=== PATIENT | male | born 1950 | race Caucasian/White ===

== ENCOUNTER 2018-07-18 17:34 | Inpatient (IN) | payer MEDICARE ==
[~2018-07-18] VITALS: Ht 170.2 cm; Wt 76.7 kg
[~2018-07-18 17:34] MED LIST: ASPIR 8181 MG PO; BENTYL 10 MG CA10 M1 PO; BRILINTA90 MG PO; CARVEDILOL12.5 MG PO; COREG6.25 MG PO; EFFIENT10 MG PO; GABAPENTIN PO; HUMALOG100 UNIT/2 SUBQ; HUMULIN R100 UNIT/M SUBQ; HYDROCODON-ACE1 EAC7 PO; LANTUS100 UNIT/M SUBQ; LASIX 20 MG TAB20 MG PO; LEVEMIR SUBQ; LIDODERM 5%1 PATC1 TOP; LIDOPATCH1 EACH TOP; LIPITOR80 MG PO; LISINOPRIL10 MG PO; MEDROL DOSPAK21 TA1 PO; NEURONTIN250 MG/5 M PO; NITROGLYCERIN0.4 MG SUBLING; PERCOCET 10-321 EACH PO; PROTONIX40 M1 PO; REGLAN 10 MG TA10 MG PO
[2018-07-18 17:36] VITALS: BP 174/84
[2018-07-18] MEDS ORDERED: IMDUR 30 MG TAB30 M1 PO (17:46)
[2018-07-18] MEDS ORDERED: PLAVIX 75 MG TA75 M1 PO (17:46)
[2018-07-18] MEDS ORDERED: LISINOPRIL20 MG PO (17:47)
[2018-07-18 18:01] LABS: ABSOLUTE EOSINOPHILS 0.2 thou/uL (0.0-0.7); ABSOLUTE LYMPHOCYTES 0.7 thou/uL (0.8-5.3); ABSOLUTE MONOCYTES 0.3 thou/uL (0.0-1.2); BASOPHILS 0.7 %; HEMATOCRIT 36.8 % (42.0-52.0); HEMOGLOBIN 12.1 gm/dL (14.0-18.0); LYMPHOCYTES 17.2 %; MCH 29.1 pg (26.0-34.0); MCV 88.3 fL (80.0-100.0); MONOCYTES 6.8 %; MPV 10.5 fl. (7.2-11.1); NUCLEATED RBCS 0 /100WBC; PLATELET COUNT* 132 thou/uL (150-400); POLYS 71.3 %; RBC 4.17 mil/uL (4.50-6.00); WBC 4.3 thou/uL (4.0-11.0)
[2018-07-18 18:08] LABS: PROTIME 9.9 Seconds (9.20-11.50)
[2018-07-18 18:13] LABS: ANION GAP 8 mmol/L (7-16); BUN 8 mg/dL (7-18); CALCIUM 7.9 mg/dL (8.5-10.1); CHLORIDE 102 mmol/L (98-107); CO2 28 mmol/L (21-32); CREATININE 0.9 mg/dL (0.6-1.3); GLUCOSE 496 mg/dL (70-99); POTASSIUM 4.5 mmol/L (3.5-5.1); SODIUM 138 mmol/L (136-145)
[2018-07-18 18:21] LABS: ALKALINE PHOSPHATASE 113 U/L (46-116); LIPASE 156 U/L (73-393); NT-PRO BRAIN NAT PEPTIDE 695 pg/mL (<300); SGOT 8 U/L (15-37); SGPT 15 U/L (30-65); TOTAL BILIRUBIN 0.2 mg/dL (<0.1-1.0); TOTAL PROTEIN 6.6 g/dL (6.4-8.2); TROPONIN-I LEVEL <0.06 ng/mL (<0.06)
[2018-07-18 21:29] VITALS: BP 168/69
[2018-07-18 21:43] VITALS: BP 173/72
[2018-07-18 22:00] VITALS: BP 173/72
[2018-07-18 23:00] VITALS: BP 171/73
[2018-07-19] VITALS: BP 144/66
[2018-07-19 02:00] VITALS: BP 136/70
[2018-07-19 04:00] VITALS: BP 147/65
--- NOTE | 2018-07-19 05:28 | NUR ---
PT ARRIVED ON UNIT FROM ER AT 2140, ASSISTED TO ROOM ORIENTED TO SURROUNDINGS. VS AND ASSESSMENT STABLE PT ALERT AND ORIENTED X4.PT STILL C/O CHEST PAIN NOT RELIEVED BY THE NITRO PASTE PLACED IN THE ER. NOTIFIED DR CHÁVEZ OF PT CONDITION ORDERS OBTIANED FOR PRN PAIN AND NAUSEA MEDS. CALLED IN CARIOLOGY CONSULT AND SPOKE WITH DR BARAHONA NOTIFIED HIM OF CONDITION ORDERS FOR LOVENOX AND NPO AFTER MIDNIGHT OBTAINED. PTS SWELLING IN TOUNGE AND EYE LIDS DRAMATICALLY REDUCED SINCE ARRIVAL UNTIL THE WRITTING OF THIS NOTE. PT NITRO PASTE REMOVED AND PT WAS GIVEN 2 DOSES SL NITRO PER PRN ORDER. PT STATED IT HELPED SOME BUT THAT THE PRN FENTANLY RELIEVED HIS PAIN COMPLETELY. PT HAD TWO DOSES THEN SLEPT THROUGH THE NIGHT. WILL CONTINUE PLAN OF CARE.
[2018-07-19 06:00] VITALS: BP 160/68
[2018-07-19 10:00] VITALS: BP 150/62
[2018-07-19 10:31] LABS: AMP/METHAMP Negative (Negative); BARBITURATES Negative (Negative); BENZODIAZEPINES Negative (Negative); COCAINE Negative (Negative); METHADONE Negative (Negative); OPIATES POSITIVE (Negative); PCP Negative (Negative); THC POSITIVE (Negative)
--- NOTE | 2018-07-19 10:45 | NUR ---
CHART REVIEWED, SPOKE WITH PT. PT IS JUST MOVING TO THIS AREA FROM [facility]. HE, HIS SON AND DTR-IN-LAW WILL BE MOVING INTO A HOUSE IN [place], THEY ARE CURRENTLY STAYING WITH FRIENDS IN THE AREA. PT SAID ONCE HE GETS SETTLED IN, HE WILL WORK ON GETTING A PCP IN THE AREA, ETC. PT HAS MEDICARE ONLY, HE HAS NO RX DRUG COVERAGE. HE SAID HE USED TO BUT HE LOST THAT COVERAGE RECENTLY. DISCUSSED ROLE OF CASE MGT, WILL CONTINUE TO FOLLOW.
--- NOTE | 2018-07-19 13:40 | NUR ---
ICU TRANSFER TO 222 REPORT GIVEN PATIENT TO 222 VIA WC GOOD CONDITION ORIENTED TO AND CALL LIGHT
--- NOTE | 2018-07-19 16:32 | 2DMMODE ---
[place] [address] 2 D/M-MODE ECHOCARDIOGRAM Name: BRYCE PRIEST Room: [address] IN [facility]#: [id number] Admission: 07/18/18 Attend Phys: Roberto Urbina Discharge: Date of : 52 Date of Service: 07/19/18 1632 Report #: [id number] THIS REPORT FOR: //name// APPROVED REPORT Study performed: 07/19/2018 14:09:00 EXAM: Comprehensive 2D, Doppler, and color-flow Echocardiogram Patient Location: In-Patient Room #: 222 Status: routine BSA: 1.96 HR: 79 bpm BP: 120/68 mmHg Rhythm: NSR Other Information Study Quality: Good Indications Aortic Valve Disease Chest Pain 2D Dimensions LVEF(%): 85.34 (>50%) IVSd: 10.22 (7-11mm) LVOT Diam: 16.77 (18-24mm) LVDd: 42.79 mm PWd: 9.84 (7-11mm) LVDs: 19.57 (25-40mm) Aortic Root: 31.05 mm Godwin's LVEF: 85.34 % Volumes Left Atrial Volume (Systole) LA ESV Index: 32.80 mL/m2 Aortic Valve AoV Peak Caleb.: 2.44 m/s AO Peak Gr.: 23.82 mmHg LVOT Max P.96 mmHg AO Mean Gr.: 13.34 mmHg LVOT Mean P.14 mmHg LVOT Max V: 1.73 m/s AO V2 VTI: 45.84 cm LVOT Mean V: 1.14 m/s VELASQUEZ (VTI): 1.88 cm2 LVOT V1 VTI: 38.98 [place] [address] 2 D/M-MODE ECHOCARDIOGRAM Name: BRYCE PRIEST Room: [address] IN M.R.#: [id number] Admission: 07/18/18 Attend Phys: Roberto Urbina Discharge: Date of : 52 Date of Service: 07/19/18 1632 Report #: [id number] MV Mean Gr.: 3.76 mmHg E/A Ratio: 0.87 MV Decel. Time: 342.55 ms MV E Max Caleb.: 1.46 m/s MV PHT: 99.34 ms MVA (PHT): 2.21 cm2 TDI E/Lateral E': 20.86 E/Medial E': 18.25 Medial E' Caleb.: 0.08 m/s Lateral E' Caleb.: 0.07 m/s Pulmonary Valve PV Peak Caleb.: 1.07 m/s PV Peak Gr.: 4.57 mmHg Left Ventricle The left ventricle is normal size. There is normal LV segmental wall motion. There is normal left ventricular wall thickness. Left ventricular systolic function is normal. The left ventricular ejection fraction is within the normal range. LVEF is 60-65%. Grade I - abnormal relaxation pattern. Right Ventricle The right ventricle is normal size. The right ventricular systolic function is normal. Atria The left atrium size is normal. The right atrium size is normal. Aortic Valve Mild aortic valve sclerosis. Bioprosthetic aortic valve is present. No aortic regurgitation is present. No hemodynamically significant valvular aortic stenosis. Mitral Valve Moderate mitral annular calcification. Mild mitral regurgitation. No evidence of mitral valve stenosis. Tricuspid Valve The tricuspid valve is normal in structure. Trace tricuspid regurgitation. Unable to assess PA pressure. Pulmonic Valve The pulmonary valve is normal in structure. There is no pulmon[place] [address] 2 D/M-MODE ECHOCARDIOGRAM Name: BRYCE PRIEST Room: [address]#: [id number] Admission: 07/18/18 Attend Phys: Roberto Urbina Discharge: Date of : 52 Date of Service: 07/19/18 1632 Report #: [id number] Great Vessels The aortic root is normal in size. IVC is normal in size and collapses with >50% inspiration Pericardium There is no pericardial effusion. <Conclusion> The left ventricle is normal size. There is normal left ventricular wall thickness. Left ventricular systolic function is normal. The left ventricular ejection fraction is within the normal range. LVEF is 60-65%. Grade I - abnormal relaxation pattern. The right ventricle is normal size. The left atrium size is normal. Mild aortic valve sclerosis. No aortic regurgitation is present. No hemodynamically significant valvular aortic stenosis. Moderate mitral annular calcification. Mild mitral regurgitation. No evidence of mitral valve stenosis. The tricuspid valve is normal in structure. IVC is normal in size and collapses with >50% inspiration There is no pericardial effusion. There is normal LV segmental wall motion. Bioprosthetic aortic valve is present. <ELECTRONICALLY SIGNED> By: Ramos Doll MD, FACC 07/19/18 163 31 31 Ramos Doll MD, FACC /INF
--- NOTE | 2018-07-19 17:38 | NUR ---
PATIENT SITTING UP IN BED AND WATCHING TV REMAINS A AND O X 4 NSR RA O2 SAT MID 90S GOOD APPETITE LAST BM UNKNOWN VOID ASEQUATE, UNMEASURED IV L AC/FA X2 BOTH SL C/O ABD/CHEST PAIN TREATED WITH 1 OXYCODONE 5MG PO WITH SOME RELIEF CALL LIGHT IN REACH AND INSTRUCTIONS GIVEN AND FOLLOWED
[2018-07-19 20:00] VITALS: BP 99/60
[2018-07-20] VITALS (22 sets, daily range): BP systolic 80–146; BP diastolic 41–94
--- NOTE | 2018-07-20 05:33 | NUR ---
ASSUMED PT CARE AT 1930. ASSESSMENT COMPLETED CHARTED. C/O CHRONIC BACK PAIN. ABLE TO MAKE NEEDS KNOWN. UP AD OLVIN, NPO FOR CATH TODAY. WILL CONTINUE TO MONITOR.
[2018-07-20 05:34] LABS: HEMATOCRIT 35.7 % (42.0-52.0); HEMOGLOBIN 11.6 gm/dL (14.0-18.0); MCH 28.7 pg (26.0-34.0); MCHC 32.6 g/dL (28.0-37.0); MCV 87.8 fL (80.0-100.0); MPV 10.9 fl. (7.2-11.1); NUCLEATED RBCS 0 /100WBC; PLATELET COUNT* 144 thou/uL (150-400); RBC 4.06 mil/uL (4.50-6.00); RDW-CV 14.1 % (10.5-14.5)
[2018-07-20 06:14] LABS: CALCIUM 8.2 mg/dL (8.5-10.1); CREATININE 0.9 mg/dL (0.6-1.3); POTASSIUM 4.4 mmol/L (3.5-5.1)
[2018-07-20 06:21] LABS: ABSOLUTE LYMPHOCYTES 0.7 thou/uL (0.8-5.3); ABSOLUTE MONOCYTES 0.1 thou/uL (0.0-1.2); ABSOLUTE NEUTROPHILS 11.2 thou/uL (1.6-8.1); PLATELET ESTIMATE ADEQUATE
--- NOTE | 2018-07-20 12:12 | NUR ---
RECEIVED REPORT FROM LAVELL AMANDA. ASSUMED CARE OF PT AROUND 0730. PT A&O X4. VSS. O2 SAT 97% ON RA. PRINTING ASSISTANT IN PLACE TRACING SR. AM ASSESSMENT AND VITALS COMPLETED CHARTED. IV TO LEFT AC CLOTTED OFF AND WAS REMOVED. IV TO LEFT FA/WRIST INTACT AND SALINE LOCKED. PT REPORTS RIGHT SIDE AND RIGHT CHEST PAIN THAT HAS STAYED FAIRLY CONSTANT DESPITE PAIN MEDICATION. PT STATES THAT HE WOULD LIKE "TWO PAIN PILLS AT A TIME INSTEAD OF ONE". PT ABLE TO BE UP AD OLVIN IN ROOM. PT VOIDING WITHOUT ISSUE. LAP SITES TO ABDOMEN FROM GALLBLADDER REMOVAL NOTED, NO SIGNS OF INFECTION. PT CURRENTLY DOWNSTAIRS IN BREAD DOUGH MIXER. AWAITING PT'S RETURN.
--- NOTE | 2018-07-20 17:29 | EKG ---
[place] [address] ELECTROCARDIOGRAM REPORT Name: BRYCE PRIEST Room: [address] ADM IN M.R.#: [id number] Admission: 07/18/18 Attend Phys: Russ Muniz Discharge: Date of : 52 Report #: [id number] THIS REPORT FOR: //name// [facility] ED Test Date: 2018-07-18 Test Time: 17:39:00 Pat Name: BRYCE PRIEST Department: Room: [facility] Gender: M Principal Examiner: Shady GARZA : 1950 Requested By: Farhat Redding Order Number: [id number] MD: Shankar Sampson Measurements Intervals [place] Rate: 74 P: 57 NE: 165 QRS: -37 QRSD: 79 T: 63 QT: 375 QTc: 416 Interpretive Statements Sinus rhythm Left atrial enlargement Left axis deviation Consider anterior infarct Compared to ECG 08/30/2017 08:12:04 Atrial abnormality now present Left-axis deviation now present Myocardial infarct finding still present Electronically Signed On 07-20-2018 17:28:46 CDT by Shankar Sampson [email or web address] <ELECTRONICALLY SIGNED> By: Shankar Sampson MD, [facility] 07/20/18 1728 1739 1739 Shankar Sampson MD, [facility] /EPI
--- NOTE | 2018-07-20 19:10 | NUR ---
PT RETURNED FROM FUDGER AROUND 1345. PT A&O X4, VSS. RIGHT GROIN SITE CDI, NO HEMATOMA. POST CATH VITALS CHARTED. PT REPORTED CHEST PAIN 7/10 FOLLOWING THE CATH - PO PAIN MEDICATION GIVEN AND NOW PT RATING PAIN AT ABOUT A 3/10. PT EATING AND DRINKING WITHOUT ISSUE. IV TO LEFT FA INTACT AND INFUSING IVF. PT NOW ABLE TO GET UP - ASSISTED TO BATHROOM TO VOID, VOIDING WITHOUT ISSUE. PT VISITING WITH FRIENDS/FAMILY ON HIS CELL PHONE. PT CURRENTLY SITTING UP IN BED. CALL LIGHT IS WITHIN REACH, FALL PRECAUTIONS IN PLACE. HOURLY ROUNDING PERFORMED.
[2018-07-21] VITALS (7 sets, daily range): BP systolic 129–165; BP diastolic 43–68
[2018-07-21 04:44] LABS: HEMOGLOBIN 11.2 gm/dL (14.0-18.0); MCH 28.9 pg (26.0-34.0); MCHC 32.8 g/dL (28.0-37.0); MPV 10.7 fl. (7.2-11.1); RBC 3.87 mil/uL (4.50-6.00); RDW-CV 14.1 % (10.5-14.5); WBC 11.1 thou/uL (4.0-11.0)
--- NOTE | 2018-07-21 05:22 | NUR ---
PT SLEPT OFF AND ON OVERNIGHT. RECEIVING PO PAIN MED Q6 HOURS PRN FOR CHEST DISCOMFORT 05/07 WITH FAIR RELIEF. HS ACCUCHECK 246, INSULIN GIVEN ORDERED. AM LABS DRAWN. TELE SR. R GROIN CATH SITE DRSCari CDI, SOFT, NO BRUISING. UP AD OLVIN, VOIDING WITHOUT DIFFICULTY. LFA IVF INFUSING PER PUMP. HEALING LAP SITES TO ABD FROM ERIC ONE WEEK AGO. ABLE TO USE CALL LITE AND MAKE NEEDS KNOWN.
[2018-07-21 05:26] LABS: ALBUMIN 2.7 g/dL (3.4-5.0); ALKALINE PHOSPHATASE 84 U/L (46-116); ANION GAP 6 mmol/L (7-16); BUN 17 mg/dL (7-18); CALCIUM 8.1 mg/dL (8.5-10.1); CHLORIDE 103 mmol/L (98-107); CO2 29 mmol/L (21-32); CREATININE 0.9 mg/dL (0.6-1.3); GLUCOSE 211 mg/dL (70-99); POTASSIUM 4.5 mmol/L (3.5-5.1); SGOT 9 U/L (15-37); SGPT 13 U/L (30-65); SODIUM 138 mmol/L (136-145); TOTAL BILIRUBIN 0.2 mg/dL (<0.1-1.0); TOTAL PROTEIN 5.4 g/dL (6.4-8.2); TROPONIN-I LEVEL <0.06 ng/mL (<0.06)
[2018-07-21 05:27] LABS: SERUM ASSESSMENT CLEAR
[2018-07-21 05:38] LABS: CHOLESTEROL 134 mg/dL (<200); HDL CHOLESTEROL 34 mg/dL (>40); LDL CHOLESTEROL 88 mg/dL (<100); TC:HDL 3.9 Ratio (Not establshd); TRIGLYCERIDE 64 mg/dL (<150); VLDL 13 mg/dL (<40)
--- NOTE | 2018-07-21 10:23 | EKG ---
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: : 1950 Requested By: Ramos Doll Order Number: [id number] Reading MD: Shankar Sampson Measurements Intervals [place] Rate: 59 P: 41 [place]: 168 QRS: -35 QRSD: 83 T: 41 QT: 429 QTc: 425 Interpretive Statements Sinus rhythm Probable left atrial enlargement Inferior infarct, old Anterior infarct, old Compared to ECG 08/30/2017 08:12:04 No significant changes Electronically Signed On 07-21-2018 10:23:41 CDT by Shankar Sampson [email or web address] <ELECTRONICALLY SIGNED> By: Shankar Sampson MD, FAC 07/21/18 1023 1252 1252 Shankar Sampson MD, [facility] /EPI
--- NOTE | 2018-07-21 10:26 | EKG ---
[place] [address] ELECTROCARDIOGRAM REPORT Name: BRYCE PRIEST Room: [address] ADM IN M.R.#: [id number] Admission: 07/18/18 Attend Phys: Russ Muniz Discharge: Date of : 52 Report #: [id number] THIS REPORT FOR: //name// [facility] Test Date: 2018-07-21 Test Time: 09:18:44 Pat Name: BRYCE PRIEST Department: Room: [address] Gender: M Instrument Tech: : 1950 Requested By: Ramos Doll Order Number: [id number] Reading MD: Shankar Sampson Measurements Intervals [place] Rate: 63 P: 49 [place]: 168 QRS: -34 QRSD: 85 T: 64 QT: 401 QTc: 411 Interpretive Statements Sinus rhythm Probable left atrial enlargement Left axis deviation Anterior infarct, old Baseline wander in lead(s) V1 Compared to ECG 07/18/2018 17:39:00 No significant changes Electronically Signed On 07-21-2018 10:25:59 CDT by Shankar Sampson [email or web address] <ELECTRONICALLY SIGNED> By: Shankar Sampson MD, [facility] 07/21/18 1025 7 7 Shankar Sampson MD, [facility] /EPI
[2018-07-21] MEDS ORDERED: ZOFRAN ODT4 MG PO (11:06)
[2018-07-21] MEDS ORDERED: BRILINTA90 MG PO (11:06)
[2018-07-21] MEDS ORDERED: OXYCODONE HCL10 MG PO (11:06)
--- NOTE | 2018-07-21 11:11 | NUR ---
RECEIVED REPORT FROM ROSAS AMANDA. ASSUMED CARE OF PT AROUND 729. PT A&O X4, VSS, O2 SAT 99% ON RA. TATTOO AND BODY ARTIST IN PLACE TRACING SR. AM ASSESSMENT AND VITALS COMPELTED CHARTED. PT NAUSEAS THIS AM, ZOFRAN GIVEN WITH PARTIAL RELIEF. PT REPORTING RIGHT SIDE AND CHEST PAIN - RECEIVED PO PAIN MEDICATION WITH PARTIAL RELIEF. EKG OBTAINED. IV TO LEFT FA INTACT AND INFUSING IVF AT KVO. PT ABLE TO EAT AND DRINK DESPITE NAUSEA. MEDS PER EMAR. PLAN IS FOR PT TO DISCHARGE LATER TODAY PER DR PATRICK. PT CURRENTLY RESTING IN BED. CALL LIGHT IS WITHIN REACH, HOURLY ROUNDING PERFORMED. LOW FALL RISK PRECAUTIONS IN PLACE. WCTM.
--- NOTE | 2018-07-21 11:30 | CARD ---
[address] [address] CARDIAC CATH REPORT Name: BRYCE PRIEST Room: [address] IN ..#: [id number] Admission: 07/18/18 Attend Phys: Russ Muniz Discharge: Date of : 52 Report #: [id number] THIS REPORT FOR: //name// APPROVED REPORT Study performed: 07/20/2018 10:54:31 Patient Details Patient Status: In-Patient Room #: 222 The patient is a 67 year-old male Event Personnel Ramos Doll Neuropsychiatrist, Sofia Pina RN Tyre Finisher And Examiner, Venus Cortez RTR Monitor, Bryce Cameron Scrub Procedures Performed Art Access - R femoral artery* Left Heart Cath w/or w/o Coronaries C AMANDA Place w/wo Plasty Single RCA Hemostasis w/ Mynx Indication Unstable angina Risk Factors Hypercholesterolemia, Coronary Artery DiseaseHypertension Previous Procedures/Diagnoses Previous Valve Surgery Admission/Lab Medications/Medications given during procedure Aspirin PO 162 mg, Ticagrelor PO 180 mg, Angiomax IV 13 ml, Angiomax Drip IV 29.1 ml per hr Procedure Narrative The patient was brought electively to the Cardiac Catheterization Laboratory and was prepped and draped in a sterile manner. The right femoral was infiltrated with 2% Lidocaine subcutaneous anesthesia. A Gilbert 6 FR sheath was inserted into the right femoral artery. Coronary angiography was performed using coronary diagnostic catheters. The right coronary system was accessed and visualized with a 6F 3DRC catheter. The left coronary system was accessed and visualized with a Diagnostic 6Fr JL4 catheter. Closure device was deployed with a 6Fr Fr Mynx. The patient tolerated the procedure well and there were no complications associated with the procedure. A hematoma occurred. The left ventricle [place] [address] CARDIAC CATH REPORT Name: BRYCE PRIEST Room: [address]#: [id number] Admission: 07/18/18 Attend Phys: Russ Muniz Discharge: Date of : 52 Report #: [id number] time. Intraoperative Conscious Sedation Sedation start time: 11:21 Case end Time: 12:17 Fentanyl 75 mcg Versed 4 mg Fluoro Time: 16.2 minutes Dose: DAP 585898 cGycm2 2412.20 mGy Contrast Type and Amount: Visipaque 260 ml Diagnostic Cath Left Main 0% narrowing LAD 30% mid Vessel narrowing Circumflex 40 Percent narrowing of the proximal portion of the first marginal branch Right Coronary Large dominant vessel with 70% ostial narrowing and 90% in-stent restenosis at the acute margin Hemodynamics The aortic pressure is 112/47 mmHg with a mean of 67 mmHg. PCI Technique Lesion Percutaneous coronary intervention was performed on the mid right coronary artery. The lesion stenosis prior to intervention was 90% with CHARITY 3 flow. A 6F 3DRC Guide Catheter was used to engage the ostium. A BMW 190cm Interventional Guidewire was used to cross the lesion. BALLOON DILATION A Balloon catheter Trek RX 2.5 X 12 was inserted and inflated up to 14.00atm for 14seconds. Additional Inflation: 16.00atm for 1seconds. NC TREK RX 3.0X12 BALLON INFLATED FOR 11 SEC @ 20 JEANNE, 6 SEC @ 14 JEANNE, 10 SEC @ 14 JEANNE. NC TREK RX 3.0 X 15 INFLATED FOR 18 SEC @ 20 SEC JEANNE, 13 SEC @ 20 JEANNE, 13 SEC @ 18 JEANNE, 12 SEC @ 20 JEANNE, 8 SEC @ 22 JEANNE. STENT DEPLOYMENT A drug-eluting stent Xience Alpine RX 3.0X28 was inserted and inflated up to 8:00atm for 12seconds. Additional Inflation: 17.00atm for 9seconds. Final angiography reveals 10 % stenosis with CHARITY 3 flow. PCI Technique Lesion 2 Percutaneous coronary intervention was performed [place] [address] CARDIAC CATH REPORT Name: BRYCE PRIEST Room: [address]#: [id number] Admission: 07/18/18 Attend Phys: Russ Muniz Discharge: Date of : 52 Report #: [id number] coronary artery. The lesion stenosis prior to intervention was 70% with CHARITY 3 flow. Balloon Dilation A Balloon catheter NC Trek RX 3.0 X 12 was inserted and inflated up to 18atm for 15seconds. Final angiography reveals 20 % stenosis with CHARITY 3 flow. Conclusion #1 significant coronary artery disease characterized by the following: A 30% mid LAD narrowing B nondominant circumflex with 40% narrowing of the proximal portion of the first marginal branch C dominant right coronary artery with 70% ostial narrowing and 90% stenosis within the previously deployed stent surrounding the acute margin #2 normal blood pressure #3 successful percutaneous coronary interventions with deployment of a drug-eluting stent at site of 90% mid right coronary stenosis with 10% residual narrowing #4 successful percutaneous transluminal coronary angioplasty at the site of 70% ostial right coronary narrowing with 20% residual narrowing and CHARITY-3 flow the distal vessel Recommendations Cardiac Risk Reduction Program Aggressive Medical Therapy Medications Administered Aspirin (any) Ticagrelor <ELECTRONICALLY SIGNED> By: Ramos Doll MD, [facility] 07/21/18 1130 1130 1130Ramos Doll MD, FACC /INF
--- NOTE | 2018-07-21 12:38 | NUR ---
Pt scheduled to dc to home today. Discussed dc meds, Pt states that the onlyl script that he will have to fill is a narcotic, CM explained that we cannot assist with the cost of narcotics. Pt stated that he will come up with the monies. Cardiology provided Pt with Brilinta samples and a 30 day copay card.
[2018-07-21] MEDS ORDERED: SIMETHICON CHEW80 M1 PO (16:41)
--- NOTE | 2018-07-21 17:07 | NUR ---
PT CONTINUING TO HAVE NAUSEA DESPITE SEVERAL ADMINISTRATIONS OF ANTI-NAUSEA MEDICATION. PT CONTINUING TO HAVE ABDOMINAL PAIN, BUT STATES IT IS IMPROVING SOME WITH THE PO PAIN MEDICATION. PT STATES HIS CHEST PAIN IS "MOSTLY GONE". DR PATRICK INFORMED OF PT'S STATUS. STAT KUB ORDERED - NO ACUTE FINDINGS. ORDER GIVEN TO PROCEED WITH DISCHARGE PER DR PATRICK. PT EDUCATED ON NEED TO EAT SMALL, FREQUENT MEALS TO MINIMIZE STOMACH DISCOMFORT AND TO AMBULATE OFTEN TO HELP MOVE ALONG GAS TRAPPED IN ABDOMEN FROM LAPROSCOPIC GALLBLADDER REMOVAL. PT COMMUNICATES UNDERSTANDING. RIGHT GROIN CATH SITE REMAINS FREE FROM HEMATOMA. SITE IS NON-TENDER. VSS. ENGINEERING TEST SPECIALIST CONTINUES TO SHOW SR. DISCHARGE COMPLETED CHARTED. DISCHARGE SUMMARY, CARE NOTES, AND SCRIPTS GONE OVER WITH PT, PT COMMUNICATES UNDERSTANDING. PT GIVEN INFORMATION OF LAPROSCOPIC SURGEON TO FOLLOW UP WITH IN THIS AREA - APPARENTLY PT HAD GALLBLADDER REMOVED IN [place] AND HAS SINCE MOVED UP TO [place]. IV AND ENGINEERING TEST SPECIALIST REMOVED. PT GIVEN CAB VOUCHER - CAB TO STOP FOR PT TO CENTRAL SERVICE SUPPLY DISTRIBUTOR PRESCRIPTIONS. PT CURRENTLY EATING DINNER IN BED. LOW FALL RISK PRECAUTIONS IN PLACE. HOURLY ROUNDING PERFORMED. CALL LIGHT IS WITHIN REACH, WCTM UNTIL CAB ARRIVES FOR PT.
== END 2018-07-21 19:38 | disposition home or self-care (01) | DRG 246 ==
LOC: M.ERS 17:34 → M.ICU 18:34 → M.TBA-ER 18:34 → M.2W 18:34 → M.ICU 21:40 → M.2W 07-19 13:34
PROVIDERS: Emergency Medicine; Internal Medicine; ADMIT Internal Medicine
DX: T82.855A Stenosis of coronary artery stent, initial encounter (principal); E11.00 Type 2 diabetes mellitus with hyperosmolarity without nonketotic hyperglycemic-hyperosmolar coma (NKHHC); E44.1 Mild protein-calorie malnutrition; E11.65 Type 2 diabetes mellitus with hyperglycemia; I10 Essential (primary) hypertension; I25.10 Atherosclerotic heart disease of native coronary artery without angina pectoris; R10.11 Right upper quadrant pain; T78.3XXA Angioneurotic edema, initial encounter; Y83.8 Other surgical procedures as the cause of abnormal reaction of the patient, or of later complication, without mention of misadventure at the time of the procedure; Z95.1 Presence of aortocoronary bypass graft; Z95.5 Presence of coronary angioplasty implant and graft; Z87.891 Personal history of nicotine dependence; Z86.73 Personal history of transient ischemic attack (TIA), and cerebral infarction without residual deficits; Z91.81 History of falling; I25.2 Old myocardial infarction; Y92.89 Other specified places as the place of occurrence of the external cause; Z95.2 Presence of prosthetic heart valve; Z90.49 Acquired absence of other specified parts of digestive tract; Z79.4 Long term (current) use of insulin; Z79.02 Long term (current) use of antithrombotics/antiplatelets; Z79.82 Long term (current) use of aspirin; Z79.899 Other long term (current) drug therapy; Z88.8 Allergy status to other drugs, medicaments and biological substances; Z88.5 Allergy status to narcotic agent; Z91.041 Radiographic dye allergy status

== ENCOUNTER 2018-07-29 22:28 | Inpatient (IN) | payer MEDICARE ==
[~2018-07-29] VITALS: Ht 170.2 cm; Wt 72.8 kg
[~2018-07-29 22:28] MED LIST changes: +IMDUR 30 MG TAB30 M1 PO; +LISINOPRIL20 MG PO; +OXYCODONE HCL10 MG PO; +PLAVIX 75 MG TA75 M1 PO; +SIMETHICON CHEW80 M1 PO; +ZOFRAN ODT4 MG PO
[2018-07-29 22:29] VITALS: BP 137/90
[2018-07-29] MEDS ORDERED: NORVASC2.5 MG PO (22:42)
[2018-07-29 22:43] LABS: ABSOLUTE BASOPHILS 0.1 thou/uL (0.0-0.2); ABSOLUTE EOSINOPHILS 0.2 thou/uL (0.0-0.7); ABSOLUTE MONOCYTES 0.4 thou/uL (0.0-1.2); ABSOLUTE NEUTROPHILS 4.7 thou/uL (1.6-8.1); BASOPHILS 1.2 %; EOSINOPHILS 3.7 %; HEMATOCRIT 44.4 % (42.0-52.0); HEMOGLOBIN 14.7 gm/dL (14.0-18.0); LYMPHOCYTES 15.1 %; MCHC 33.2 g/dL (28.0-37.0); MCV 87.3 fL (80.0-100.0); MONOCYTES 6.5 %; MPV 10.6 fl. (7.2-11.1); NUCLEATED RBCS 0 /100WBC; PLATELET COUNT* 165 thou/uL (150-400); POLYS 73.5 %; RBC 5.08 mil/uL (4.50-6.00); RDW-CV 13.8 % (10.5-14.5); WBC 6.4 thou/uL (4.0-11.0)
[2018-07-29] MEDS ORDERED: CRESTOR40 MG PO (22:44)
[2018-07-29 22:58] LABS: ANION GAP 6 mmol/L (7-16); APTT 27.5 Seconds (25.0-31.3); BUN 25 mg/dL (7-18); CALCIUM 9.1 mg/dL (8.5-10.1); CHLORIDE 92 mmol/L (98-107); CO2 28 mmol/L (21-32); CREATININE 1.2 mg/dL (0.6-1.3); INR 0.9; POTASSIUM 4.8 mmol/L (3.5-5.1); PROTIME 9.4 Seconds (9.20-11.50); SODIUM 126 mmol/L (136-145)
[2018-07-29 23:00] LABS: GLUCOSE 585 mg/dL (70-99)
[2018-07-29 23:13] LABS: ALBUMIN 3.8 g/dL (3.4-5.0); ALKALINE PHOSPHATASE 182 U/L (46-116); CK-MB MASS 0.6 ng/mL (<0.5-3.6); LIPASE 54 U/L (73-393); MAGNESIUM 1.8 mg/dL (1.8-2.4); NT-PRO BRAIN NAT PEPTIDE 124 pg/mL (<300); SGOT 9 U/L (15-37); SGPT 26 U/L (30-65); TOTAL BILIRUBIN 0.5 mg/dL (<0.1-1.0); TROPONIN-I LEVEL <0.06 ng/mL (<0.06)
[2018-07-29 23:50] VITALS: BP 155/72
[2018-07-30] VITALS (13 sets, daily range): BP systolic 59–160; BP diastolic 34–82
--- NOTE | 2018-07-30 08:10 | NUR ---
RECEIVED REPORT AND ASSUMED CARE AT 2355. PT TRANSPORTED FROM ED TO ROOM 206. BP ELEVAED, OTHERWISE VSS. CARDIAC MONITORING IN PLACE. PT REPORTS PAIN, PRN MEDICATION ADMIN PER ORDERS. PT UP AD OLVIN IN ROOM, ON RA. PT REPORTED NAUSEA, PRN MEDICATION ADMIN PER ORDERS. PT BLOOD GLUCOSE ELEVATED, MEDICATION ADMIN PER ORDERS. PT BLOOD GLUCOSE DROPPED, PHYSICIAN AWARE. ADMIN MEDICATION PER ORDERS. REFER TO EMAR. PT CONTINUES TO REPORT PAIN. PHYSICIAN NOTIFIED. CT ORDERED. NURSING WILL CONTINUE TO MONITOR
[2018-07-30 10:35] LABS: HEMATOCRIT 41.8 % (42.0-52.0); HEMOGLOBIN 14.1 gm/dL (14.0-18.0); MCH 28.9 pg (26.0-34.0); MCHC 33.6 g/dL (28.0-37.0); MCV 86.1 fL (80.0-100.0); MPV 10.2 fl. (7.2-11.1); RBC 4.86 mil/uL (4.50-6.00); RDW-CV 14.1 % (10.5-14.5); WBC 8.4 thou/uL (4.0-11.0)
[2018-07-30 10:39] LABS: APTT 27.7 Seconds (25.0-31.3)
--- NOTE | 2018-07-30 19:28 | NUR ---
nathen resting in bed. patient has had very low bp this afternoon, as documented, cardiology and primary contactged and orders received to treat bp. treatment ongoing. hourly rounding completed for patient safety and nathen is tolerating treatments well and participating in care. blood glucose levels also low this am, doctor contacted and orders for treatment received and implemented with patients input.
[2018-07-31] VITALS: BP 86/45
[2018-07-31 04:00] VITALS: BP 110/48
--- NOTE | 2018-07-31 04:54 | NUR ---
Assumed care of patient at 1930. Physical assessment performed and documented; hourly rounding completed for patient safety. Patient's BPs have improved slowly throughout the night. Right AC IV intact and infusing NS and Heparin per protocol. Patient A&O x4; SBA to BR. Sinus rhythm noted on telemetry. O2 saturation 100% on 2L NC. Pain meds given see JAN. Call light within patient's reach. Will continue to monitor.
[2018-07-31 05:12] LABS: HEMOGLOBIN 12.6 gm/dL (14.0-18.0); MCH 28.8 pg (26.0-34.0); MCV 87.1 fL (80.0-100.0); MPV 10.8 fl. (7.2-11.1); RBC 4.37 mil/uL (4.50-6.00); WBC 7.1 thou/uL (4.0-11.0)
[2018-07-31 05:47] LABS: MAGNESIUM 1.9 mg/dL (1.8-2.4)
[2018-07-31 08:00] VITALS: BP 128/58
--- NOTE | 2018-07-31 09:13 | NUR ---
ASSUMED CARE OF PT AT 0730. PT RESTING IN BED WAITING FOR BREAKFAST. PT A&0X4, COMPLAINS OF GENERALIZED PAIN 7/10, TREATED WITH PRN FENTANYL WITH PARTIAL RELIEF. PT TRACING SB ON THE INDEPENDENT LIVING SPECIALIST. ON 2L NC PER PT COMFORT REQUEST SAT 99%. DENIES ANY SHORTNESS OF BREATH. HEPARIN INFUSING PER PROTOCOL AT THIS TIME. PT UP SBA TO BATHROOM. PT GOAL FOR TODAY IS PAIN MGMT, INCREASE ACTIVITY AND MONITOR BLOOD PRESSURE AND BLOOD GLUCOSE CLOSELY AND TRANSITION TO PO BLOOD THINNER COVERAGE. AM ASSESSMENT CHARTED. MEDICATIONS PER JAN. PT REPOSITIONS SELF. HOURLY ROUNDING OBSERVED. BED IN LOW POSITION. CALL LIGHT WITHIN REACH. WILL CONTINUE PLAN OF CARE.
--- NOTE | 2018-07-31 10:41 | EKG ---
[place] [address] ELECTROCARDIOGRAM REPORT Name: BRYCE PRIEST Room: [address] ADM IN M.R.#: [id number] Admission: 07/29/18 Attend Phys: Alvaro Garcia, Discharge: Date of : 52 Report #: [id number] THIS REPORT FOR: //name// [facility] ED Test Date: 2018-07-29 Test Time: 22:31:12 Pat Name: BRYCE PRIEST Department: Room: [facility] Gender: M Wood Grainer: MC : 1950 Requested By: Dean Christensen Order Number: [id number] MD: Ramos Doll Measurements Intervals [place] Rate: 96 P: 69 [place]: 168 QRS: -44 QRSD: 79 T: 89 QT: 334 QTc: 422 Interpretive Statements Sinus rhythm Left axis deviation Anterior infarct, old Compared to ECG 07/21/2018 09:18:44 Minor st-t changes have occurred Myocardial infarct finding still present Electronically Signed On 07-31-2018 10:41:24 CDT by Ramos Doll [email or web address] <ELECTRONICALLY SIGNED> By: Ramos Doll MD, [facility] 07/31/18 1041 30 30 Ramos Doll MD, [facility] /EPI
--- NOTE | 2018-07-31 10:42 | EKG ---
[place] [address] ELECTROCARDIOGRAM REPORT Name: BRYCE PRIEST Room: [address] ADM IN M.R.#: [id number] Admission: 07/29/18 Attend Phys: Alvaro Garcia, Discharge: Date of : 52 Report #: [id number] THIS REPORT FOR: //name// [facility] Test Date: 2018-07-30 Test Time: 03:58:36 Pat Name: BRYCE PRIEST Department: Room: [address] Gender: M Enamel Shader: : 1950 Requested By: Dean Christensen Order Number: [id number] MD: Ramos Doll Measurements Intervals [place] Rate: 88 P: 45 [place]: 160 QRS: -46 QRSD: 84 T: 96 QT: 360 QTc: 436 Interpretive Statements Sinus rhythm Probable left atrial enlargement Abnormal inferior Q waves Nonspecific T abnormalities, lateral leads Compared to ECG 07/21/2018 09:18:44 Inferior Q waves now present Myocardial infarct finding still present Minor st-t changes have occurred Electronically Signed On 07-31-2018 10:42:45 CDT by Ramos Doll [email or web address] <ELECTRONICALLY SIGNED> By: Ramos Doll MD, [facility] 07/31/18 1042 0358 0358 Ramos Doll MD, [facility] /EPI
[2018-07-31 12:13] VITALS: BP 120/78
[2018-07-31 15:32] VITALS: BP 101/53
--- NOTE | 2018-07-31 16:16 | NUR ---
NO ACUTE CHANGES THROUGHOUT SHIFT. REFER TO CHARTING. PT COMPLAINS OF GENERALIZED PAIN. TREATED WITH IVP PRN FENTANYL WITH PARTIAL RELIEF. PT PROGRESSING TOWARDS GOALS. PROBABLE DISCHARGE HOME TOMORROW 08/01. PT CONTINUES TO TRACE SR ON THE OIL PROCESS STILLMAN. ON RA SAT UPPER 90'S. DENIES ANY SHORTNESS OF BREATH. BLOOD PRESSURE AND BLOOD GLUCOSE STABLE THROUGHOUT SHIFT. PT UP AD OLVIN IN ROOM. MEDICATIONS PER JAN. PT REPOSITIONS SELF. HOURLY ROUNDING OBSERVED. BED IN LOW POSITION. CALL LIGHT WITHIN REACH. WILL CONTINUE PLAN OF CARE.
[2018-07-31 19:30] VITALS: BP 118/52
[2018-08-01] VITALS: BP 102/55
[2018-08-01 04:00] VITALS: BP 103/56
[2018-08-01 04:50] LABS: HEMATOCRIT 34.7 % (42.0-52.0); HEMOGLOBIN 11.5 gm/dL (14.0-18.0); MCHC 33.1 g/dL (28.0-37.0); MCV 87.7 fL (80.0-100.0); MPV 10.9 fl. (7.2-11.1); RBC 3.96 mil/uL (4.50-6.00); RDW-CV 14.2 % (10.5-14.5); WBC 5.9 thou/uL (4.0-11.0)
--- NOTE | 2018-08-01 04:56 | NUR ---
PT AAOX4 RESP REG AND UNALABORED. SKIN W/D NO ACUTE DISTRESS NOTED. TELEMETRY PACK INTACT WITH ALARMS SET. VSS AND NO ACUTE CHANGES DURIGN SHIFT. PT STATES SHOULD BE DCD TODAY. WILL CONTINUE TO MONITOR
[2018-08-01 05:03] LABS: CALCIUM 8.6 mg/dL (8.5-10.1); CREATININE 1.2 mg/dL (0.6-1.3); MAGNESIUM 1.6 mg/dL (1.8-2.4); POTASSIUM 4.6 mmol/L (3.5-5.1)
[2018-08-01 08:00] VITALS: BP 129/72
--- NOTE | 2018-08-01 11:10 | CON ---
[address] [address] CONSULTATION Name: BRYCE PRIEST Room: [address] IN M.R.#: [id number] Admission: 07/29/18 Attend Phys: Alvaro Garcia, Discharge: Date of : 52 Report #: [id number] THIS REPORT FOR: //name// CC: MARINA physician/PCP Alvaro Garcia TYPE OF REPORT: Cardiology consultation. INDICATION: Chest pain. HISTORY OF PRESENT ILLNESS: The patient is a very pleasant 67-year-old gentleman who is well known to our staff. He has coronary artery disease with multiple percutaneous coronary interventions in the past. Most recently, he had intervention to a circumflex lesion and recurrent in-stent restenosis in the mid right coronary artery. The LAD appears to be spared of significant coronary artery disease. He does have significantly narrowed distal right coronary vessels too small for intervention. Stress testing last year was nonischemic. He has preserved left ventricular systolic function. He has a history of hemorrhagic CVA in 2013. He has a history of aortic valve replacement at [facility] remotely. Apparently, he had no bypass at the time of his aortic valve replacement. He is admitted to the hospital with midsternal chest pain radiating to the neck. The pain was prolonged in nature. Thus far, troponins are unremarkable. EKG does not show acute ST-segment changes. PAST MEDICAL HISTORY: 1. Coronary artery disease with multiple percutaneous coronary interventions to the right coronary artery and a single noted intervention to the circumflex. 2. Aortic valve replacement, remotely. 3. History of hemorrhagic CVA. 4. Hypertension. 5. Hyperlipidemia. 6. Type 2 diabetes mellitus. SOCIAL HISTORY: The patient quit smoking in 2003. He does not drink alcohol. FAMILY HISTORY: Noncontributory. ALLERGIES: CONTRAST DYE, MORPHINE and TORADOL. HOME MEDICATIONS: Amlodipine 5 mg daily, aspirin 81 mg daily, atorvastatin 20 mg at bedtime, Lasix 20 mg daily, Lantus as directed, lispro as directed, Imdur 30 mg b.i.d., Prinivil 20 mg daily, Protonix 40 mg daily and Brilinta [address] [place] [address] CONSULTATION Name: BRYCE PRIEST Room: [address]#: [id number] Admission: 07/29/18 Attend Phys: Alvaro Garcia, Discharge: Date of : 52 Report #: [id number] PHYSICAL EXAMINATION: VITAL SIGNS: Stable. Blood pressure 174/85 and pulse is 89 and regular. GENERAL: This is an elderly gentleman who is in no acute distress. HEENT: Extraocular muscles intact. Mucous membranes are moist. NECK: Shows no jugular venous distention. I do not appreciate bruit. CHEST: Reveals diminished breath sounds that are clear without wheezes or rales. CARDIOVASCULAR: Reveals a regular rhythm with grade 2/6 systolic ejection murmur. ABDOMEN: Reveals normal bowel sounds. The abdomen is soft and nontender. EXTREMITIES: Shows no edema. Peripheral pulses palpable. IMPRESSION AND RECOMMENDATIONS: 1. Recurrent chest pain in patient with underlying coronary artery disease. Thus far enzymes are unremarkable. EKG shows no acute changes. The patient had recent percutaneous coronary intervention. At this point, I would continue rule out with serial enzymes. We will treat transiently with IV heparin. We will adjust medications including antianginals to include metoprolol and Ranexa. 2. Hyperlipidemia. Continue atorvastatin at current dose. 3. Hypertension. Adding metoprolol at this time and we will increase dose as needed. 4. Diabetes per primary physician. <ELECTRONICALLY SIGNED> By: Jaciel Leger MD, FACC 08/01/18 1110 1005 [facility] Leger MD, FACC /nt
[2018-08-01] MEDS ORDERED: LOPRESSOR25 PO (11:30)
[2018-08-01] MEDS ORDERED: LISINOPRIL10 MG PO (11:30)
[2018-08-01] MEDS ORDERED: IMDUR 30 MG TAB30 M1 PO (11:30)
[2018-08-01] MEDS ORDERED: TRAMADOL 50 MG50 MG PO (11:30)
[2018-08-01] MEDS ORDERED: RANEXA500 MG PO (11:30)
[2018-08-01 11:38] VITALS: BP 110/54
--- NOTE | 2018-08-01 13:01 | NUR ---
ASSUMED PT CARE AT 0700 PT IS ALERT AND ORIENTED X 4 PT DENIES SOA, PT C/O GENERALIZED PAIN GAVE FENTAYL PT STATES FENTANYL DOES NOT HELP DISCUSSED PAIN MED REGIMINE HE USES AT HOME HE STATES HE TAKES 100MG OF TRAMADOL THIS NURSE PAGED PHYSICIAN FOR TRAMADOL OBTAINED ORDER FOR TRAMADOL. PT CLEARED FOR DISCHARGE BY HOSPITALIST IF CARDIOLOGY CLEARS PT, CARDIOLOGY ON THE FLOOR WILL GIVE PT SAMPLES OF [place] AND PT CAN DISCHARGE, WILL CONTINUE TO MONITOR
[2018-08-01 13:26] VITALS: BP 110/54
[2018-08-01 13:35] VITALS: BP 110/54
== END 2018-08-01 13:55 | disposition home or self-care (01) | DRG 303 ==
LOC: M.ERS 22:28 → M.TBA-ER 23:18 → M.2W 23:18
PROVIDERS: Family Medicine; Internal Medicine; Internal Medicine Cardiovascular Disease; ADMIT Family Medicine
DX: I25.118 Atherosclerotic heart disease of native coronary artery with other forms of angina pectoris (principal); E87.1 Hypo-osmolality and hyponatremia; I69.351 Hemiplegia and hemiparesis following cerebral infarction affecting right dominant side; I10 Essential (primary) hypertension; E11.65 Type 2 diabetes mellitus with hyperglycemia; I95.9 Hypotension, unspecified; E78.5 Hyperlipidemia, unspecified; Z95.2 Presence of prosthetic heart valve; Z95.1 Presence of aortocoronary bypass graft; Z87.891 Personal history of nicotine dependence; Z95.5 Presence of coronary angioplasty implant and graft; Z90.49 Acquired absence of other specified parts of digestive tract; Z79.02 Long term (current) use of antithrombotics/antiplatelets; Z79.82 Long term (current) use of aspirin; Z79.4 Long term (current) use of insulin; Z79.899 Other long term (current) drug therapy; Z88.5 Allergy status to narcotic agent; Z88.8 Allergy status to other drugs, medicaments and biological substances; Z91.041 Radiographic dye allergy status

== ENCOUNTER 2018-12-06 00:05 | Inpatient (IN) | payer OTHER ==
[~2018-12-06] VITALS: Ht 170.2 cm; Wt 79.8 kg
[2018-12-06] VITALS (10 sets, daily range): BP systolic 78–162; BP diastolic 40–96
[~2018-12-06 00:05] MED LIST changes: +CRESTOR40 MG PO; +LOPRESSOR25 PO; +NORVASC2.5 MG PO; +RANEXA500 MG PO; +TRAMADOL 50 MG50 MG PO
[2018-12-06] MEDS ORDERED: CLOPIDOGREL PO (00:20)
[2018-12-06 00:30] LABS: ABSOLUTE EOSINOPHILS 0.1 thou/uL (0.0-0.7); ABSOLUTE MONOCYTES 0.4 thou/uL (0.0-1.2); ABSOLUTE NEUTROPHILS 4.6 thou/uL (1.6-8.1); BASOPHILS 0.7 %; EOSINOPHILS 1.8 %; HEMATOCRIT 40.3 % (42.0-52.0); HEMOGLOBIN 13.3 gm/dL (14.0-18.0); LYMPHOCYTES 15.7 %; MCH 28.8 pg (26.0-34.0); MCV 87.2 fL (80.0-100.0); MPV 10.9 fl. (7.2-11.1); NUCLEATED RBCS 0 /100WBC; PLATELET COUNT* 145 thou/uL (150-400); POLYS 74.8 %; RBC 4.62 mil/uL (4.50-6.00); RDW-CV 15.3 % (10.5-14.5); WBC 6.2 thou/uL (4.0-11.0)
[2018-12-06 00:41] LABS: APTT 26.1 Seconds (25.0-31.3); INR 0.9; PROTIME 9.5 Seconds (9.20-11.50)
[2018-12-06 00:43] LABS: ANION GAP 11 mmol/L (7-16); BUN 15 mg/dL (7-18); CHLORIDE 97 mmol/L (98-107); CO2 26 mmol/L (21-32); CREATININE 1.4 mg/dL (0.6-1.3); POTASSIUM 4.8 mmol/L (3.5-5.1); SODIUM 134 mmol/L (136-145)
[2018-12-06 00:44] LABS: GLUCOSE 686 mg/dL (70-99)
[2018-12-06 00:58] LABS: ALBUMIN 3.8 g/dL (3.4-5.0); ALKALINE PHOSPHATASE 213 U/L (46-116); CK-MB MASS 1.4 ng/mL (<0.5-3.6); LIPASE 78 U/L (73-393); NT-PRO BRAIN NAT PEPTIDE 424 pg/mL (<300); SGOT 12 U/L (15-37); SGPT 17 U/L (30-65); TOTAL BILIRUBIN 0.2 mg/dL (<0.1-1.0); TOTAL PROTEIN 7.6 g/dL (6.4-8.2); TROPONIN-I LEVEL <0.06 ng/mL (<0.06)
--- NOTE | 2018-12-06 06:35 | NUR ---
Pt a/o x 4, on O2 2L NC. Some relief of chest pain with additional pain med ordered by Dr. Urbina. BG 421 upon arrival to floor, order received from Dr. Urbina to give Insulin S/S sooner than previously scheduled at 0730. VSS. No apparent distress noted at this time. Will continue to monitor.
--- NOTE | 2018-12-06 07:45 | NUR ---
RECEIVED REPORT. ASSUMED CARE OF PT AT 0730. VSS. CARDIAC MONTIORING IN PLACE SR. AM ASSESSMENT AND VITALS COMPLETED CHARTED. PT'S BG 29 THIS AM. PT ALERT UPON ASSESSMENT JUICE GIVEN ALONG WITH DEXTROSE. PT WAS NOTED TO BE PALE, NAUSEATED, AND DIAPHORETIC. OTHERWISE PT ALERT AND ROEITNED. PT ON 2L PER NC. PT REPORTS CONSTANT CHEST PAIN. MORPHINE GIVEN PER EMAR. IV SALINE LOCKED. PT INFORMED OF PLAN OF CARE. [facility]. WILL CONTINUE TO CARMELLA FOR DURAITON OF SHFIT.
--- NOTE | 2018-12-06 16:14 | NUR ---
Pt asleep when CM went to assess, will f/u later
--- NOTE | 2018-12-06 16:49 | NUR ---
PT'S BP 78/48. PT DROWSY/LETHARGIC PT IS AROUSABLE. PT CONTINUES TO REPORT CP AND NOW NAUSEATED. IV ZOFRAN GIVEN. CARDIOLOGY NOTIFIED. ORDERS RECEIVED FOR 1L BOLUS. BOLUS INFUSING. DR. CASANOVA NOTIFIED. WILL CONTINUE TO MONTIOR CLOSELY.
--- NOTE | 2018-12-06 18:22 | NUR ---
DR. CASANOVA INFORMED OF PT'S BP. ORDERS RECEIVED REGARDING PAIN MEDICAITON-SEE EMAR. PT TO HAVE STRESS TEST IN AM. PT SOMEWHAT PROGRESSING TOWARDS GOALS. PT REMIANS ON 2L. IV NOW SAILE LOCKED AFTER 1L BOLUS. CALL LIGHT IS WITHIN REACH. WILL CONTINUE TO MONITOR.
--- NOTE | 2018-12-06 18:46 | EKG ---
[place] [address] ELECTROCARDIOGRAM REPORT Name: BRYCE PRIEST Room: [address] ADM IN M.R.#: [id number] Admission: 12/06/18 Attend Phys: Russ Muniz Discharge: Date of : 52 Report #: [id number] THIS REPORT FOR: //name// [facility] ED Test Date: 2018-12-06 Test Time: 00:10:02 Pat Name: BRYCE PRIEST Department: Room: [address] Gender: M Sport Internship: GL : 1950 Requested By: Dean Christensen Order Number: [id number] Ronald MD: Jaciel Leger Measurements Intervals [place] Rate: 92 P: 69 SC: 175 QRS: -46 QRSD: 78 T: 91 QT: 312 QTc: 386 Interpretive Statements Sinus rhythm Left anterior fascicular block Delayed R-wave progression Nonspecific T abnormalities, lateral leads Baseline wander in lead(s) II,V2,V3 Compared to ECG 07/30/2018 03:58:36 Left anterior fascicular block now present Inferior Q waves no longer present T-wave abnormality still present Electronically Signed On 12-06-2018 18:46:29 MD PHYSICIAN DERMATOLOGIST by Jaciel Leger [email or web address] <ELECTRONICALLY SIGNED> By: Jaciel Leger MD, FAC 12/06/18 1846 0010 0010 Jaciel Leger MD, [facility] /EPI
--- NOTE | 2018-12-06 18:47 | EKG ---
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: ADINA : 1950 Requested By: Dean Christensen Order Number: [id number] MD: Jaciel Leger Measurements Intervals [place] Rate: 82 P: 37 [place]: 171 QRS: -42 QRSD: 87 T: 134 QT: 344 QTc: 402 Interpretive Statements Sinus rhythm Probable left ventricular hypertrophy Cannot rule out anteroseptal infarct, old Inferior infarct, old Anterior Q waves, possibly due to LVH Lateral leads are also involved Compared to ECG 07/30/2018 03:58:36 Myocardial infarct finding now present Left ventricular hypertrophy now present Inferior Q waves no longer present T-wave abnormality no longer present Electronically Signed On 12-06-2018 18:47:49 DRYWALL APPLICATION SUPERVISOR by Jaciel Leger [email or web address] <ELECTRONICALLY SIGNED> By: Jaciel Leger MD, [facility] 12/06/18 1847 1 1 Jaciel Leger MD, [facility] /EPI
--- NOTE | 2018-12-06 18:49 | EKG ---
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: : 1950 Requested By: Dean Christensen Order Number: [id number] Reading MD: Jaciel Leger Measurements Intervals [place] Rate: 79 P: 37 [place]: 175 QRS: -40 QRSD: 83 T: 142 QT: 371 QTc: 426 Interpretive Statements Sinus rhythm Probable left atrial enlargement Left ventricular hypertrophy Probable anterior infarct, age indeterminate Inferior infarct, old possible Baseline wander in lead(s) V2 Compared to ECG 07/30/2018 03:58:36 Left ventricular hypertrophy now present Myocardial infarct finding now present Inferior Q waves no longer present Q waves no longer present T-wave abnormality no longer present Electronically Signed On 12-06-2018 18:49:14 DISTRIBUTION DISTRICT SUPERVISOR by Jaciel Leger [email or web address] <ELECTRONICALLY SIGNED> By: Jaciel Leger MD, [facility] 12/06/18 1849 1142 1142 Jaciel Leger MD, [facility] /EPI
[2018-12-07 00:05] VITALS: BP 130/50
[2018-12-07 04:00] VITALS: BP 114/64
--- NOTE | 2018-12-07 04:56 | NUR ---
RECEIVED REPORT AND ASSUMED CARE AT 1900. BP LOW, OTHERWISE VSS. CARDIAC MONITORING IN PLACE. PHYSICIAN AWARE OF BP, ORDERS RECEIVED. MEDICATION ADMIN PER EMAR. PT UP SBA, 2L NC. DISCUSSED PLAN OF CARE WITH PT, VERBALIZED UNDERSTANDING. NPO AFTER MIDNIGHT, STRESS TEST SCHEDULED 12/07/18. BED LOCKED IN LOWEST POSITION, CALL LIGHT WITHIN REACH, BED ALARM ON. HOURLY ROUNDING COMPLETED AND ALL NEEDS MET. WILL CONTINUE TO MONITOR
[2018-12-07 05:11] LABS: HEMATOCRIT 36.7 % (42.0-52.0); HEMOGLOBIN 12.3 gm/dL (14.0-18.0); MCH 28.6 pg (26.0-34.0); MCHC 33.4 g/dL (28.0-37.0); MCV 85.7 fL (80.0-100.0); MPV 10.6 fl. (7.2-11.1); RBC 4.29 mil/uL (4.50-6.00); WBC 6.8 thou/uL (4.0-11.0)
[2018-12-07 05:30] LABS: CALCIUM 8.6 mg/dL (8.5-10.1); CREATININE 1.5 mg/dL (0.6-1.3); POTASSIUM 5.2 mmol/L (3.5-5.1)
--- NOTE | 2018-12-07 07:45 | NUR ---
RECEIVED REPORT. ASSUMED CARE OF PT AT 0730. BP REMAINS SOFT OTHERWISE VSS. CARDIAC MONTIORING IN PLACE SR. AM ASSESSMENT AND VITALS COMPLETED CHARTED. PT ALERT AND ORIETNED BUT FORGETFUL. PT ON RA. IV SALINE LOCKED. PT REPORTS CHEST PAIN THIS AM ALONG WITH NAUSEA. MEDS GIVEN PER EMAR. PT NPO PENDING STRESS TEST TODAY. PT INFORMED OF PLAN OF CARE. PT COMMUNCIATES UNDERSTANDING. CALL LIGHT IS WITHIN REACH. WILL CONTINUE TO MONITOR FOR DURATION OF SHFIT.
[2018-12-07 07:51] VITALS: BP 118/40
--- NOTE | 2018-12-07 09:54 | NUR ---
Pt is A&O. Resides at home with family. Independent with ADls. No DME. No hx of HH or SNF. Pt to have stress test today. Goal is home at al. Following.
[2018-12-07 12:00] VITALS: BP 150/66
[2018-12-07 16:00] VITALS: BP 143/58
--- NOTE | 2018-12-07 16:27 | CARDNUC ---
[place] [address] CARDIAC NUCLEAR IMAGING REPORT Name: BRYCE PRIEST Room: [address] IN [facility]#: [id number] Admission: 12/06/18 Attend Phys: Roberto Urbina Discharge: Date of : 52 Date of Service: 12/07/18 1627 Report #: [id number] THIS REPORT FOR: //name// APPROVED REPORT Imaging Protocol: Rest Tc-99m/Stress Tc-99m 1 day Study performed: 12/06/2018 15:05:00 Indication: Chest pain Patient Location: In-Patient Room #: 215 Stress Tech: Dayanna Zhou Stress Nurse: Daya Adamson RN NM Tech:HENRY Sheppard Ht: 5 ft 7 in Wt: 179 lbs BSA: 1.93 m2 BMI: 28.03 Medical History Medical History: hemorrhagic cva, aortic valve replacement, carotid artery stenosis, hyperlipidemia, hypertension, pvd, diabetes Medications: metoprolol, atorvastatin, ranolazine, asa 81, furosemide, lisinopril Allergies: contrast dye, ketorolac Cardiac Risk Factors: age, hyperlipidemia, hypertension, pvd, diabetes, family hx Previous Cardiac Procedures: cabg, pci Exercise History: Physically active Meds Held (24 hrs): metoprolol Resting Data Rest SPECT myocardial perfusion imaging was performed in supine position 30 minutes following the intravenous injection of 11.0 mCi of Tc-99m Sestamibi. Time of rest injection: 0800 Date: 12/07/2018 Time of rest imagin The images were gated to evaluate regional wall motion and calculate left ventricular ejection fraction. Administration Route: IV Administration Site: Right Hand Pharmacologic Stress Pharmacologic stress test was performed by injecting Regadenoson 0.4 mg IV push over 10-15 seconds immediately [place] [address] CARDIAC NUCLEAR IMAGING REPORT Name: BRYCE PRIEST Room: [address] IN [facility]#: [id number] Admission: 12/06/18 Attend Phys: Roberto Urbina Discharge: Date of : 52 Date of Service: 12/07/18 1627 Report #: [id number] injection of 33.5 mCi of Tc-99m Sestamibi. Time of stress injection: 0945 Time of stress imagin Administration Route: IV Administration Site: Right Hand Gated Stress SPECT was performed 40 minutes after stress injection. The images were gated to evaluate regional wall motion and calculate left ventricular ejection fraction. Prone imaging was performed. Stress Test Details Stress Test: Pharmacologic stress testing performed using 0.4 mg of regadenoson per 5 mL given IV over 10 seconds. Reason for pharmacologic stress test: physical limitation. HR Max Heart Rate (APMHR): 153 bpm Resting HR: 87 bpm Target HR (85% APMHR): 130 bpm Max HR Achieved: 96 bpm % of APMHR: 62 Recovery HR: 99 bpm BP Resting BP: 144/72 mmHg Max BP: 133/58 mmHg Recovery BP: 121/61 mmHg ECG Resting ECG: Sinus Rhythm Stress ECG: Sinus Rhythm ST Change: None Arrhythmia: None Recovery ECG: Sinus Rhythm Recovery ST Change: None Recovery Arrhythmia: None Clinical Reason for Termination: Completed protocol Exercise duration: 0 min sec Exercise capacity: 1 METs The patient tolerated Lexiscan infusion without significant symptoms. Nurse Comments pt states he has 80% carotid stenosis, ok to do procedure per Dr. Leger. Pt co isa cp. recovering from recent cabg. Pt given 5mg of compazine ivp for nausea with good results[place] [address] CARDIAC NUCLEAR IMAGING REPORT Name: BRYCE PRIEST Room: [address]#: [id number] Admission: 12/06/18 Attend Phys: Roberto Urbina Discharge: Date of : 52 Date of Service: 12/07/18 1627 Report #: [id number] well Stress ECG Conclusion The baseline 12-lead EKG shows sinus rhythm without significant ST or T wave abnormality. EKGs obtained during and post Lexiscan infusion show sinus rhythm with no significant ST or T wave changes when compared to baseline. There were no stress-induced arrhythmias. Study Quality Study: Good Artifact: No artifact Study Data At rest, the left ventricular ejection fraction was 83%.. Post stress, the left ventricular ejection was 74%.. TID = 0.96. Perfusion Normal left ventricular perfusion. Wall Motion Global left ventricular systolic function is preserved. There is a septal wall motion abnormality noted consistent with prior bypass procedure. Nuclear Conclusion ECG Findings: negative for ischemia Clinical Findings: negative for ischemia Nuclear Findings: negative for ischemia Exercise Capacity: not assessed Left Ventricular Function: preserved Risk Study: low Myocardial perfusion images show no defect to suggest infarct or ischemia. Left ventricular systolic function is well-preserved on gated studies. This is a low risk study. <Conclusion> The baseline 12-lead EKG shows sinus rhythm without significant ST or T wave abnormality. EKGs obtained during and post Lexiscan infusion show sinus rhythm with no significant ST or T wave changes when compared to baseline. There were no stress-induced arrhythmias. <ELECTRONICALLY SIGNED> By: Jaciel Leger MD, FACC 12/07/18 1627 1627 162 Jaciel Leger MD, FACC /INF
--- NOTE | 2018-12-07 16:33 | EKG ---
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 SEWELL : 1950 Requested By: Owen Riley Order Number: [id number] Ronald MD: Ramos Doll Measurements Intervals [place] Rate: 79 P: 39 RI: 175 QRS: -37 QRSD: 83 T: 73 QT: 323 QTc: 371 Interpretive Statements Sinus rhythm Ventricular premature complex Left axis deviation Anterior infarct, old Nonspecific T abnormalities, lateral leads Compared to ECG 12/06/2018 11:42:22 Ventricular premature complex(es) now present Left-axis deviation now present T-wave abnormality now present Left ventricular hypertrophy no longer present Myocardial infarct finding still present Electronically Signed On 12-07-2018 16:33:46 RATING OFFICER by Ramos Doll [email or web address] <ELECTRONICALLY SIGNED> By: Ramos Doll MD, FACC 12/07/18 1633 1737 1737 Ramos Doll MD, [facility] /EPI
--- NOTE | 2018-12-07 19:04 | NUR ---
VSS. CARDIAC MONTIORING IN PLACE WITH NO CHANGES THIS SHFIT. PT REMAINS ALERT AND OREINTED. PT ON RA. IV SALINE LOCKED. PT CONTINUES TO HAVE COMPLAINTS OF CHEST PAIN THROUGHOUT SHIFT. PT COMPELTED STRESS TEST TODAY. ACCORDING TO CARDIOLOGY STRESS TEST WAS NEGATIVE. PLAN TO D/C TOMORROW. PT INFORMED OF PLAN OF CARE. WILL CONTINUE TO MONITOR FOR DURATION OF SHIFT.
[2018-12-07 20:00] VITALS: BP 122/50
--- NOTE | 2018-12-07 20:00 | NUR ---
RECEIVED REPORT AND ASSUMED CARE OF PT, ASSESSMENT COMPLETED. PT C/O CHEST PAIN AND HEAVINESS. DISCUSSED NEG TESTS AND CHEST WALL PAIN. STATES TRAMADOL NOT EFFECTIVE FOR HIM. REASSURANCE GIVEN ALONG WITH HS MEDS AND TRAMADOL. TELEMETRY ON SHOWING SR. WILL CONT TO MONITOR AND ASSIST NEEDED.
[2018-12-08 00:30] VITALS: BP 101/42
[2018-12-08 04:00] VITALS: BP 106/52
--- NOTE | 2018-12-08 05:49 | NUR ---
SLEPT FAIRLY WELL. PO PAIN MED GIVEN ON REQUEST Q 6HR. PT STATES NO RELIEF BUT ABLE TO SLEEP. TELEMETRY CONT TO SHOW SR. HS GOALS OF REST AND SAFETY ACHIEVED. HOURLY ROUNDING OBSERVED.
[2018-12-08 07:50] VITALS: BP 125/61
--- NOTE | 2018-12-08 10:18 | NUR ---
RECEIVED REPORT FROM RITA AND ASSUMED CARE OF PT @ 0515.PT IS A/O X4,VSS,TRACING SR WITH 1ST DEGREE ON THE MONITOR.ASSESSMENT CHARTED.IV PATENT AND SALINE LOCKED.PT IS CALM AND COOPERATIVE WITH C/O CHEST PAIN-MEDICATIONS GIVEN.PT REFUSED METOPROLOL THIS AM-DUE BLOOD PRESSURE BEING LOW LAST COUPLE OF DAYS.PT IS UP AD OLVIN IN ROOM.CALL LIGHT WITHIN REACH.PT LEFT RESTING IN BED.WILL CONTINUE TO MONITOR.
--- NOTE | 2018-12-08 10:21 | NUR ---
Pt is current with [facility], for nurse only and wants to resume at [facility]. Updated Dr. Blackwell dc today. Pt states that he may need a cab voucher. Following.
[2018-12-08] MEDS ORDERED: PLAVIX 75 MG TA75 M1 PO (12:14)
[2018-12-08 12:33] VITALS: BP 134/77
[2018-12-08 13:17] VITALS: BP 134/77
[2018-12-08] MEDS ORDERED: XARELTO15 MG PO (13:29)
--- NOTE | 2018-12-08 13:47 | NUR ---
PT OK FOR DISCHARGE.PAPERWORK COMPLETED AND GIVEN TO PT.NO SCRIPTS GIVEN.IV REMOVED.HEART MONITOR REMOVED AND RETURNED TO NURSING STATION.ALL PERSONAL BELONGINGS PACKED AND TAKEN WITH PT.PT WHEELED OUT BY NURSING STAFF TO PERSONAL VEHICLE.
== END 2018-12-08 15:10 | disposition home health service (06) | DRG 193 ==
LOC: M.ERS 00:05 → M.TBA-ER 01:00 → M.2W 01:00
PROVIDERS: Family Medicine; ADMIT Internal Medicine
DX: R09.1 Pleurisy (principal); E11.00 Type 2 diabetes mellitus with hyperosmolarity without nonketotic hyperglycemic-hyperosmolar coma (NKHHC); I50.32 Chronic diastolic (congestive) heart failure; I13.0 Hypertensive heart and chronic kidney disease with heart failure and stage 1 through stage 4 chronic kidney disease, or unspecified chronic kidney disease; E11.65 Type 2 diabetes mellitus with hyperglycemia; N18.3 Chronic kidney disease, stage 3 (moderate); E11.22 Type 2 diabetes mellitus with diabetic chronic kidney disease; I25.10 Atherosclerotic heart disease of native coronary artery without angina pectoris; Z95.5 Presence of coronary angioplasty implant and graft; Z95.1 Presence of aortocoronary bypass graft; Z86.73 Personal history of transient ischemic attack (TIA), and cerebral infarction without residual deficits; Z90.49 Acquired absence of other specified parts of digestive tract; Z88.8 Allergy status to other drugs, medicaments and biological substances; Z91.041 Radiographic dye allergy status; Z79.4 Long term (current) use of insulin; Z82.49 Family history of ischemic heart disease and other diseases of the circulatory system; Z91.14 Patient's other noncompliance with medication regimen; Z79.82 Long term (current) use of aspirin; Z79.899 Other long term (current) drug therapy

== ENCOUNTER 2019-04-18 22:11 | Observation (INO) | payer OTHER ==
[~2019-04-18] VITALS: Ht 170.2 cm; Wt 85.7 kg
--- NOTE | ~2019-04-18 | EKG ---
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: : 1950 Requested By: Owen Riley Order Number: [id number] Reading MD: Measurements Intervals [place] Rate: 75 P: 68 ID: 190 QRS: -43 QRSD: 86 T: 63 QT: 379 QTc: 424 Interpretive Statements Sinus rhythm Inferior infarct, old Anterior infarct, old Baseline wander in lead(s) V1,V2 Compared to ECG 12/06/2018 17:37:56 Ventricular premature complex(es) no longer present Left-axis deviation no longer present T-wave abnormality no longer present Myocardial infarct finding still present [email or web address] By: [id number] [place] /EPI
[~2019-04-18 22:11] MED LIST changes: +CLOPIDOGREL PO; +XARELTO15 MG PO
[2019-04-18 22:12] VITALS: BP 165/100
[2019-04-18] MEDS ORDERED: COREG6.25 MG PO (22:20)
[2019-04-18 22:33] LABS: ABSOLUTE BASOPHILS 0.1 thou/uL (0.0-0.2); ABSOLUTE EOSINOPHILS 0.3 thou/uL (0.0-0.7); ABSOLUTE LYMPHOCYTES 1.5 thou/uL (0.8-5.3); ABSOLUTE MONOCYTES 0.5 thou/uL (0.0-1.2); ABSOLUTE NEUTROPHILS 4.5 thou/uL (1.6-8.1); EOSINOPHILS 4.8 %; HEMATOCRIT 49.1 % (42.0-52.0); HEMOGLOBIN 16.4 gm/dL (14.0-18.0); LYMPHOCYTES 22.4 %; MCH 29.4 pg (26.0-34.0); MCHC 33.4 g/dL (28.0-37.0); MONOCYTES 7.4 %; MPV 10.4 fl. (7.2-11.1); NUCLEATED RBCS 0 /100WBC; PLATELET COUNT* 139 thou/uL (150-400); POLYS 64.4 %; RBC 5.57 mil/uL (4.50-6.00); RDW-CV 13.5 % (10.5-14.5); WBC 6.9 thou/uL (4.0-11.0)
[2019-04-18 22:44] LABS: APTT 28.4 Seconds (25.0-31.3); INR 0.9; PROTIME 9.7 Seconds (9.20-11.50)
[2019-04-18 22:46] LABS: ANION GAP 10 mmol/L (7-16); BUN 26 mg/dL (7-18); CALCIUM 9.7 mg/dL (8.5-10.1); CHLORIDE 96 mmol/L (98-107); CO2 26 mmol/L (21-32); CREATININE 1.4 mg/dL (0.6-1.3); POTASSIUM 4.7 mmol/L (3.5-5.1); SODIUM 132 mmol/L (136-145)
[2019-04-18 22:48] LABS: GLUCOSE 522 mg/dL (70-99)
[2019-04-18 22:54] LABS: ALBUMIN 4.1 g/dL (3.4-5.0); ALKALINE PHOSPHATASE 181 U/L (46-116); LIPASE 37 U/L (73-393); MAGNESIUM 1.9 mg/dL (1.8-2.4); NT-PRO BRAIN NAT PEPTIDE 81 pg/mL (<300); SGOT 9 U/L (15-37); SGPT 16 U/L (30-65); TOTAL BILIRUBIN 0.5 mg/dL (<0.1-1.0); TOTAL PROTEIN 8.3 g/dL (6.4-8.2); TROPONIN-I LEVEL <0.06 ng/mL (<0.06)
[2019-04-18 23:21] VITALS: BP 114/66
[2019-04-19] VITALS: BP 169/88
[2019-04-19 04:00] VITALS: BP 129/69
--- NOTE | 2019-04-19 04:25 | NUR ---
RECEIVED REPORT FROM QUAN AMANDA. PT TRANSFERRED TO 206. PT A&OX4. VSS. GENERAL SUPERINTENDENT IN PLACE. ADMISSION HISTORY & PHYSICAL ASSESSMENT COMPLETED AND CHARTED. FALL FORM SIGNED. ORIENTED TO ROOM & CALL LIGHT. PT STILL COMPLAINED OF CHEST PAIN EVEN AFTER NTG & FENTANYL WAS GIVEN AT ER. PT HAS A CRITICAL HIGH BLOOD SUGAR OF >500. DR CASANOVA INFORMED WITH NEW ORDERS. INSTRUCTED ON NPO EXCEPT LIQUIDS FOR CARDIO CONSULTS. COMMUNICATES UNDERSTANDING. CALL LIGHT WITHIN REACH.
[2019-04-19 04:53] LABS: ABSOLUTE EOSINOPHILS 0.3 thou/uL (0.0-0.7); ABSOLUTE LYMPHOCYTES 1.1 thou/uL (0.8-5.3); ABSOLUTE MONOCYTES 0.4 thou/uL (0.0-1.2); ABSOLUTE NEUTROPHILS 4.6 thou/uL (1.6-8.1); BASOPHILS 0.7 %; HEMATOCRIT 45.8 % (42.0-52.0); HEMOGLOBIN 15.6 gm/dL (14.0-18.0); LYMPHOCYTES 17.7 %; MCH 29.8 pg (26.0-34.0); MCV 87.7 fL (80.0-100.0); MONOCYTES 5.7 %; NUCLEATED RBCS 0 /100WBC; PLATELET COUNT* 121 thou/uL (150-400); POLYS 71.9 %; RBC 5.23 mil/uL (4.50-6.00); RDW-CV 13.5 % (10.5-14.5); WBC 6.4 thou/uL (4.0-11.0)
[2019-04-19 04:54] LABS: CALCIUM 9.7 mg/dL (8.5-10.1); CREATININE 1.3 mg/dL (0.6-1.3); MAGNESIUM 1.9 mg/dL (1.8-2.4); POTASSIUM 5.3 mmol/L (3.5-5.1)
--- NOTE | 2019-04-19 11:03 | NUR ---
Pt is A&O. Resides at home with his son and DIL. Independent, son does all of the driving. Pt has a walker, wc and cane at home that he can use as needed. No home o2. Hx of [facility]. No hx of SNF. Hx of acute rehab at [facility]. Goal is home at tx. No needs anticipated.
[2019-04-19 11:58] VITALS: BP 109/52
[2019-04-19 12:46] LABS: CALCIUM 8.7 mg/dL (8.5-10.1); MAGNESIUM 1.8 mg/dL (1.8-2.4); POTASSIUM 3.9 mmol/L (3.5-5.1)
[2019-04-19 16:28] VITALS: BP 133/73
[2019-04-19 16:35] VITALS: BP 99/49
--- NOTE | 2019-04-19 17:09 | CARDNUC ---
[place] [address] CARDIAC NUCLEAR IMAGING REPORT Name: BRYCE PRIEST Room: [address] IN [facility]#: [id number] Admission: 04/18/19 Attend Phys: Owen Riley MD Discharge: Date of : 52 Date of Service: 04/19/19 1709 Report #: [id number] THIS REPORT FOR: //name// APPROVED REPORT Imaging Protocol: Rest Tc-99m/Stress Tc-99m 1 day Study performed: 04/19/2019 10:34:00 Indication: Chest pain Patient Location: In-Patient Room #: 206 Stress Tech: Jessica Vazquez Stress Nurse: Daya Adamson RN NM Tech:HENRY Sheppard Ht: 5 ft 7 in Wt: 189 lbs BSA: 1.97 m2 BMI: 29.59 Medical History Medical History: CAD,PCI,HYPERLIPIDEMIA,HYPERTENSION, DIABETES, CVA Medications: ATORVASTATIN, ASA-81, RANALOZINE,LISINOPRIL,CLOPIDOGREL. CARVEDILOL Allergies: 1V DYE, TORADOL Cardiac Risk Factors: AGE, HYPERLIPIDEMIA, HYPERTENSION, DIABETES Previous Cardiac Procedures: PCI, CABG Exercise History: Sedentary Meds Held (24 hrs): CARVEDILOL Resting Data Rest SPECT myocardial perfusion imaging was performed in supine position 30 minutes following the intravenous injection of 12.0 mCi of Tc-99m Sestamibi. Time of rest injection: 1230 Date: 04/19/2019 The images were gated to evaluate regional wall motion and calculate left ventricular ejection fraction. Administration Route: IV Administration Site: Right AC Pharmacologic Stress Pharmacologic stress test was performed by injecting Regadenoson 0.4 mg IV push over 10-15 seconds immediately followed by the intravenous injection of 30.6 mCi of Tc-99m Sestamibi. Time of stress injection: 1355 Date: 04/19/2019 [place] [address] CARDIAC NUCLEAR IMAGING REPORT Name: BRYCE PRIEST Room: [address] IN ..#: [id number] Admission: 04/18/19 Attend Phys: Owen Riley MD Discharge: Date of : 52 Date of Service: 04/19/19 1709 Report #: [id number] Administration Route: IV Administration Site: Right AC Gated Stress SPECT was performed 40 minutes after stress injection. The images were gated to evaluate regional wall motion and calculate left ventricular ejection fraction. Prone imaging was performed. Stress Test Details Stress Test: Pharmacologic stress testing performed using 0.4 mg of regadenoson per 5 mL given IV over 10 seconds. Reason for pharmacologic stress test: physical limitation. HR Max Heart Rate (APMHR): 153 bpm Resting HR: 75 bpm Target HR (85% APMHR): 130 bpm Max HR Achieved: 87 bpm % of APMHR: 56 Recovery HR: 83 bpm BP Resting BP: 101/56 mmHg Max BP: 87/52 mmHg Recovery BP: 117/61 mmHg ECG Resting ECG: Sinus Rhythm Stress ECG: Sinus Rhythm ST Change: None Arrhythmia: None Recovery ECG: Sinus Rhythm Recovery ST Change: None Recovery Arrhythmia: None Clinical Reason for Termination: Completed protocol Exercise duration: 0 min sec Exercise capacity: 1 METs The patient had symptoms of chest discomfort and diaphoresis with Lexiscan infusion that were felt to be due to medication effect in light of the myocardial perfusion imaging findings. Nurse Comments PT PREMEDICATED WITH ZOFRAN FOR NAUSEA. PT CO CHEST PAIN AND WAS DIAPHORETIC. EKG DONE AND DR GOODWIN CONSULTED. OK TO DO STRESS TEST PER DR GOODWIN. IV CAFFEINE GIVEN FOR NAUSEA, MORPHINE 2 MG IVP FOR CHEST PAIN. PT UNABLE TO WALK ON TREADMILL DUE [place] [address] CARDIAC NUCLEAR IMAGING REPORT Name: BRYCE PRIEST Room: [address]#: [id number] Admission: 04/18/19 Attend Phys: Owen Riley MD Discharge: Date of : 52 Date of Service: 04/19/19 1709 Report #: [id number] Stress ECG Conclusion The baseline 12-lead EKG shows sinus rhythm without significant ST or T wave abnormality. EKGs obtained during and post Lexiscan infusion show sinus rhythm with no significant ST or T wave changes when compared to baseline. There were no stress-induced arrhythmias. Study Quality Study: Good Artifact: No artifact Study Data At rest, the left ventricular ejection fraction was 75%.. Post stress, the left ventricular ejection was 71%.. TID = 0.98. Perfusion Myocardial perfusion images show no defect to suggest infarct or ischemia. There is uniform perfusion at rest and post Lexiscan stress. Wall Motion There is a septal wall motion abnormality noted consistent with prior bypass procedure. Global LV systolic function is well-preserved. Nuclear Conclusion ECG Findings: negative for ischemia Clinical Findings: equivocal Nuclear Findings: negative for ischemia Exercise Capacity: not assessed Left Ventricular Function: preserved Risk Study: low Myocardial perfusion images show no defect to suggest infarct or ischemia. Left ventricular systolic function is well-preserved on gated studies. This is a low risk study. <Conclusion> The baseline 12-lead EKG shows sinus rhythm without significant ST or T wave abnormality. EKGs obtained during [place] [address] CARDIAC NUCLEAR IMAGING REPORT Name: BRYCE PRIEST Room: [address] IN M.R.#: [id number] Admission: 04/18/19 Attend Phys: Owen Riley MD Discharge: Date of : 52 Date of Service: 04/19/19 1709 Report #: [id number] show sinus rhythm with no significant ST or T wave changes when compared to baseline. There were no stress-induced arrhythmias. <ELECTRONICALLY SIGNED> By: Jaciel Leger MD, FACC 04/19/191708 08 08 Jaciel Leger MD, FACC /INF
--- NOTE | 2019-04-19 17:37 | EKG ---
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 : 1950 Requested By: Neftali Jiang Order Number: [id number] MD: Jaciel Leger Measurements Intervals [place] Rate: 94 P: 48 NE: 192 QRS: -43 QRSD: 87 T: 80 QT: 345 QTc: 432 Interpretive Statements Sinus rhythm Left atrial enlargement Left ventricular hypertrophy, bivoltage Inferior infarct, old Anteroseptal infarct, old Compared to ECG 12/06/2018 17:37:56 Atrial abnormality now present Left ventricular hypertrophy now present T-wave abnormality no longer present Myocardial infarct finding still present Electronically Signed On 04-19-2019 17:37:49 CDT by Jaciel Leger [email or web address] <ELECTRONICALLY SIGNED> By: Jaciel Leger MD, FACC 04/19/19 1737 11 11 Jaciel Leger MD, FACC /EPI
--- NOTE | 2019-04-19 17:42 | EKG ---
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1950 Requested By: Ramos Doll Order Number: [id number] Ronald MD: Jaciel Leger Measurements Intervals [place] Rate: 75 P: 68 [place]: 190 QRS: -43 QRSD: 86 T: 63 QT: 379 QTc: 424 Interpretive Statements Sinus rhythm Inferior infarct, old Anterior infarct, old Baseline wander in lead(s) V1,V2 Compared to ECG 12/06/2018 17:37:56 Ventricular premature complex(es) no longer present Left-axis deviation no longer present T-wave abnormality no longer present Myocardial infarct finding still present Electronically Signed On 04-19-2019 17:41:54 CDT by Jaciel Leger [email or web address] <ELECTRONICALLY SIGNED> By: Jaciel Leger MD, FACC 04/19/19 1741 1332 1332 Jaciel Leger MD, FACC /EPI
[2019-04-19 20:00] VITALS: BP 72/28
[2019-04-20 00:03] VITALS: BP 108/47
[2019-04-20 04:00] VITALS: BP 108/52
--- NOTE | 2019-04-20 05:29 | NUR ---
ASSUMED CARE OF PT AFTER REPORT AT 1930. PT A&OX4. PHYSICAL ASSESSMENT COMPLETED AND CHARTED. PT TRACING SR ON TELE. PT HAS LOW BP. HOOKED PT TO O2 AT 2L NC. PT ALSO COMPLAINED OF CHEST PAIN BUT CANNOT GIVE MORPHINE DUE TO LOW BP. DR FREDERICK INFORMED WITH NEW ORDERS. PT RESTED WELL ON BED, CALL LIGHT WITHIN REACH.
[2019-04-20 07:10] VITALS: BP 147/60
[2019-04-20 11:12] VITALS: BP 106/51
[2019-04-20 12:25] VITALS: BP 111/62
--- NOTE | 2019-04-20 12:41 | NUR ---
INITAL ASSESSMENT COMPLETED CHARTED. TRACING SR ON MONITOR. VSS. HOURLY ROUNDING FOR PT SAFETY. CLWR.
[2019-04-20 13:07] LABS: GLYCOHEMOGLOBIN (HGB A1C) 12.3 % (4.8-5.6)
--- NOTE | 2019-04-23 12:18 | CON ---
[address] [address] CONSULTATION Name: BRYCE PRIEST Room: [address] Eliceo Castro#: [id number] Admission: 04/18/19 Attend Phys: Owen Riley MD Discharge: 04/20/19 Date of : 52 Report #: [id number] THIS REPORT FOR: //name// CC: Brian Riley DATE OF SERVICE: 04/19/2019 CARDIOLOGY CONSULTATION HISTORY OF PRESENT ILLNESS: The patient is a pleasant 68-year-old male with complex coronary artery disease, status post multiple prior percutaneous coronary interventions and a more recent coronary artery bypass grafting in 09/2018. Yesterday, after modest activity, he developed chest discomfort which was similar to his prior angina. There was some response to nitrates, but this does not totally clear. He continues to note mild discomfort, but has had negative enzymes and no EKG changes, suggesting acute ischemia or injury. The patient has significant prior cigarette smoking history, hypercholesterolemia, diabetes, hypertension and a family history of premature coronary artery disease in his mother. PAST MEDICAL HISTORY: Remarkable for carotid disease, prior stroke, remote aortic valve replacement, type 2 diabetes, hypertension and gastroesophageal reflux disease. MEDICATIONS: Have included aspirin 81 mg daily, atorvastatin 80 mg at bedtime, carvedilol 6.25 mg b.i.d., Lantus insulin 30 units subcutaneously at bedtime, Humalog insulin 6 units subcutaneously a.c., lisinopril 10 mg daily, pantoprazole 40 mg daily, ranolazine 1000 mg b.i.d. and clopidogrel 75 mg daily. SOCIAL HISTORY: The patient has a significant prior cigarette smoking history. ALLERGIES: HE DESCRIBES A CONTRAST REACTION IN THE PAST. REVIEW OF SYSTEMS: Remarkable for the following positives: CENTRAL NERVOUS SYSTEM: He notes generalized weakness, but no focal neurologic symptoms. RESPIRATORY: He notes cough and has underlying chronic obstructive pulmonary disease. CARDIOVASCULAR: He noted chest tightness on admission. ENDOCRINE: He has insulin-dependent diabetes. ALLERGIC AND IMMUNOLOGIC: HE DESCRIBES MEDICATION ALLERGY TO TORADOL AND HAS A CONTRAST REACTION IN THE PAST. MUSCULOSKELETAL: He notes modest chronic arthritic complaints; remainder [place] [address] CONSULTATION Name: BRYCE PRIEST Karla Room: [address]#: [id number] Admission: 04/18/19 Attend Phys: Owen Riley MD Discharge: 04/20/19 Date of : 52 Report #: [id number] PHYSICAL EXAMINATION: GENERAL: Reveals a middle-aged male in no acute distress. VITAL SIGNS: Blood pressure 140/70, pulse rate 78 and respirations 18 per minute. NECK: Jugular venous pressure is normal. CHEST EXAMINATION: Reveals slightly decreased breath sounds, without wheezing. CARDIAC EXAMINATION: Reveals a regular rhythm without gallops or murmurs. ABDOMEN: Modestly obese. EXTREMITIES: Reveal satisfactory distal perfusion, without deformity or arthritic changes. LABORATORY DATA: Electrocardiogram demonstrates sinus rhythm, left axis deviation, possible anteroseptal scar, left ventricular hypertrophy, possible inferior scar and no acute ischemic changes. The troponins have been unremarkable. IMPRESSION: 1. Recurrent chest pain compatible with, but not diagnostic of angina. 2. Coronary artery disease, status post multiple prior percutaneous coronary interventions and coronary artery bypass grafting in 09/2018. 3. Diabetes. 4. Hypertension. 5. Hypercholesterolemia. 6. Prolonged cigarette smoking history in the past. RECOMMENDATIONS: Given the characterization of the pain, known coronary artery disease and recent coronary artery bypass grafting, I would recommend proceeding with Lexiscan Cardiolite testing to address the presence or absence of significant inducible ischemic burden. If present, I would consider re-catheterization. This was discussed with the patient and Dr. Gonzalez. <ELECTRONICALLY SIGNED> By: Ramos Doll MD, FACC 04/23/19 1218 1036 [id number] Doll MD, FACC /nt
== END 2019-04-20 14:13 | disposition home or self-care (01) ==
LOC: M.ERS 22:11 → M.TBA-ER 23:00 → M.2W 23:00
PROVIDERS: Emergency Medicine Emergency Medical Services; Internal Medicine; ADMIT Family Medicine
DX: R07.89 Other chest pain (principal); I25.110 Atherosclerotic heart disease of native coronary artery with unstable angina pectoris; E11.00 Type 2 diabetes mellitus with hyperosmolarity without nonketotic hyperglycemic-hyperosmolar coma (NKHHC); I10 Essential (primary) hypertension; E78.5 Hyperlipidemia, unspecified; E11.65 Type 2 diabetes mellitus with hyperglycemia; E78.00 Pure hypercholesterolemia, unspecified; Z79.82 Long term (current) use of aspirin; Z86.73 Personal history of transient ischemic attack (TIA), and cerebral infarction without residual deficits; Z98.890 Other specified postprocedural states; Z88.8 Allergy status to other drugs, medicaments and biological substances; Z91.041 Radiographic dye allergy status; Z79.84 Long term (current) use of oral hypoglycemic drugs; Z95.1 Presence of aortocoronary bypass graft; Z87.891 Personal history of nicotine dependence

== ENCOUNTER 2019-07-16 06:22 | Inpatient (IN) | payer OTHER ==
[~2019-07-16] VITALS: Ht 170.2 cm; Wt 81.6 kg
[2019-07-16] VITALS (14 sets, daily range): BP systolic 115–165; BP diastolic 57–96
[2019-07-16 06:43] LABS: ABSOLUTE EOSINOPHILS 0.3 thou/uL (0.0-0.7); ABSOLUTE MONOCYTES 0.3 thou/uL (0.0-1.2); ABSOLUTE NEUTROPHILS 3.5 thou/uL (1.6-8.1); BASOPHILS 0.7 %; EOSINOPHILS 5.3 %; HEMATOCRIT 45.2 % (42.0-52.0); HEMOGLOBIN 15.1 gm/dL (14.0-18.0); LYMPHOCYTES 19.4 %; MCHC 33.3 g/dL (28.0-37.0); MCV 90.2 fL (80.0-100.0); MONOCYTES 5.4 %; MPV 10.6 fl. (7.2-11.1); NUCLEATED RBCS 0 /100WBC; PLATELET COUNT* 130 thou/uL (150-400); POLYS 69.2 %; RBC 5.02 mil/uL (4.50-6.00); RDW-CV 14.1 % (10.5-14.5); WBC 5.1 thou/uL (4.0-11.0)
[2019-07-16 06:58] LABS: APTT 26.4 Seconds (25.0-31.3); PROTIME 9.8 Seconds (9.20-11.50)
[2019-07-16 07:01] LABS: ANION GAP 9 mmol/L (7-16); BUN 18 mg/dL (7-18); CALCIUM 9.3 mg/dL (8.5-10.1); CHLORIDE 101 mmol/L (98-107); CO2 23 mmol/L (21-32); GLUCOSE 326 mg/dL (70-99); POTASSIUM 4.6 mmol/L (3.5-5.1); SODIUM 133 mmol/L (136-145)
[2019-07-16 07:09] LABS: ALBUMIN 3.7 g/dL (3.4-5.0); ALKALINE PHOSPHATASE 136 U/L (46-116); CK-MB MASS 1.2 ng/mL (<0.5-3.6); LIPASE 55 U/L (73-393); MAGNESIUM 1.9 mg/dL (1.8-2.4); NT-PRO BRAIN NAT PEPTIDE 345 pg/mL (<300); SGOT 16 U/L (15-37); SGPT 17 U/L (30-65); TOTAL BILIRUBIN 0.2 mg/dL (<0.1-1.0); TOTAL PROTEIN 7.3 g/dL (6.4-8.2); TROPONIN-I LEVEL <0.06 ng/mL (<0.06)
[2019-07-16 08:11] LABS: CHOLESTEROL 245 mg/dL (<200); HDL CHOLESTEROL 35 mg/dL (>40); LDL CHOLESTEROL 164 mg/dL (<100); SERUM ASSESSMENT Clear; TRIGLYCERIDE 234 mg/dL (<150); VLDL 47 mg/dL (<40)
--- NOTE | 2019-07-16 17:13 | EKG ---
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 : 1950 Requested By: Dean Christensen Order Number: [id number] MD: Sascha Shepherd Measurements Intervals [place] Rate: 82 P: 62 WI: 174 QRS: -46 QRSD: 83 T: 70 QT: 349 QTc: 408 Interpretive Statements Sinus rhythm Ventricular trigeminy Probable left atrial enlargement Inferior infarct, old Anterior infarct, old Baseline wander in lead(s) V4 Compared to ECG 04/19/2019 13:32:56 Ventricular premature complex(es) now present Myocardial infarct finding still present Electronically Signed On 07-16-2019 17:12:59 CDT by Sascha Shepherd [email or web address] <ELECTRONICALLY SIGNED> By: Sascha Shepherd MD, [facility] 07/16/19 1712 0625 Sascha Shepherd MD, [facility] /EPI
[2019-07-16 23:08] LABS: GLYCOHEMOGLOBIN (HGB A1C) 12.7 % (4.8-5.6)
[2019-07-17] VITALS (8 sets, daily range): BP systolic 98–151; BP diastolic 52–66
[2019-07-17 05:17] LABS: HEMATOCRIT 40.9 % (42.0-52.0); HEMOGLOBIN 13.6 gm/dL (14.0-18.0); MCH 30.2 pg (26.0-34.0); MCHC 33.3 g/dL (28.0-37.0); MCV 90.6 fL (80.0-100.0); RBC 4.51 mil/uL (4.50-6.00); RDW-CV 14.8 % (10.5-14.5); WBC 8.9 thou/uL (4.0-11.0)
[2019-07-17 05:51] LABS: ANION GAP 9 mmol/L (7-16); CALCIUM 8.5 mg/dL (8.5-10.1); CHLORIDE 102 mmol/L (98-107); CO2 24 mmol/L (21-32); GLUCOSE 256 mg/dL (70-99); MAGNESIUM 1.8 mg/dL (1.8-2.4); POTASSIUM 4.5 mmol/L (3.5-5.1); SODIUM 135 mmol/L (136-145); TROPONIN-I LEVEL <0.06 ng/mL (<0.06)
[2019-07-17 06:05] LABS: BUN 21 mg/dL (7-18)
--- NOTE | 2019-07-17 11:09 | EKG ---
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: : 1950 Requested By: Sascha Shpeherd Order Number: [id number] Ronald MD: Sascha Shepherd Measurements Intervals [place] Rate: 75 P: 44 ME: 201 QRS: -40 QRSD: 83 T: 6 QT: 382 QTc: 427 Interpretive Statements Sinus rhythm Probable left atrial enlargement Inferior infarct, old Anterior infarct, old Lateral leads are also involved Baseline wander in lead(s) V5 Compared to ECG 07/16/2019 06:25:46 Ventricular premature complex(es) no longer present Myocardial infarct finding still present Electronically Signed On 07-17-2019 11:08:57 CDT by Sascha Shepherd [email or web address] <ELECTRONICALLY SIGNED> By: Sascha Shepherd MD, [facility] 07/17/19 1108 183 30 Sascha Shepherd MD, [facility] /EPI
--- NOTE | 2019-07-17 11:39 | EKG ---
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 : 1950 Requested By: Sascha Shepherd Order Number: [id number] Ronald MD: Sascha Shepherd Measurements Intervals [place] Rate: 72 P: 33 NE: 193 QRS: -40 QRSD: 84 T: 5 QT: 374 QTc: 410 Interpretive Statements Sinus rhythm Multiple ventricular premature complexes Probable left atrial enlargement Inferior infarct, old Anterior infarct, old Compared to ECG 07/16/2019 06:25:46 pvc's noted Electronically Signed On 07-17-2019 11:39:02 CDT by Sascha Shepherd [email or web address] <ELECTRONICALLY SIGNED> By: Sascha Shepherd MD, [facility] 07/17/19 1139 0336 0336 Sascha Shepherd MD, [facility] /EPI
[2019-07-17] MEDS ORDERED: ZETIA10 MG PO (13:20)
--- NOTE | 2019-07-17 16:22 | CARD ---
[address] [address] CARDIAC CATH REPORT Name: BRYCE PRIEST Room: [address] IN ..#: [id number] Admission: 07/16/19 Attend Phys: Kathy Espinoza MD Discharge: 07/17/19 Date of : 52 Report #: [id number] THIS REPORT FOR: //name// APPROVED REPORT Study performed: 07/16/2019 13:50:07 Patient Details Patient Status: In-Patient Room #: The patient is a 68 year-old male Event Personnel Sascha Shepherd Content Strategist, Jimena Lala RN RN, Jae Martínez (R) Dinora Marquez Brad COMMUNITY FACILITATOR Monitor, Zulma Vasquez RTR Monitor Procedures Performed Coronaries Angiography and Bypass Grafts [id number] [facility] AMANDA Place w/wo Plasty Single RCA [id number] Art Access - R femoral artery* Indication Unstable angina , Chest pain Risk Factors Hypercholesterolemia, Hypertension, Diabetes Previous Procedures/Diagnoses Previous CABGPrevious PCI, Previous Valve Surgery Admission/Lab Medications/Medications given during procedure Heparin Unfract. Procedure Narrative The patient was brought electively to the Cardiac Catheterization Laboratory and was prepped and draped in a sterile manner. The right femoral was infiltrated with 1% Lidocaine subcutaneous anesthesia. A 6fr Ultimum Sheath sheath was inserted into the RFA. Coronary angiography was performed using coronary diagnostic catheters. The right coronary system was accessed and visualized with a JR 4 6F catheter. The left coronary system was accessed and visualized with a JL4 6F catheter. Closure device was deployed with a 6 Fr Mynx. The patient tolerated the procedure well and there were no complications associated with the procedure. There was no hematoma. Attempted procedure from the left femoral artery, [place] [address] CARDIAC CATH REPORT Name: BRYCE PRIEST Room: [address] IN [facility]#: [id number] Admission: 07/16/19 Attend Phys: Kathy Espinoza MD Discharge: 07/17/19 Date of : 52 Report #: [id number] femoral artery with needle. JR4 catheter used to engage SVG, and 6 fr ADAMES catheter used for ADAMES graft. Intraoperative Conscious Sedation Sedation start time: 1453 Case end Time: 1553 Fentanyl 25 mcg Versed 2 mg Fluoro Time: 7.0 minutes Dose: DAP 19917 cGycm2 1608 mGy Contrast Type and Amount: Omnipaque 220 ml Coronary Angiography The patient's coronary anatomy is co- dominant. [place] Artery Percent Stenosis Patent ADAMES graft noted to the mid lad, although 40% stenosis noted in mid graft. Patent SVG noted to a small 3rd marginal branch, although the SVG had a narrow lumen. Diagnostic Cath Left Main 0% stenosis LAD 50% proximal and 70% mid stenosis noted OM3 80% proximal stenosis noted Right Coronary long stent noted starting proximally and extending beyond the acute margin. 40% stenosis noted proximally, and 80% mid and 90% stenosis noted at acute margin. R PDA small vessel noted beyond stented vessel. Left Ventriculography Left Ventriculography was not performed. Hemodynamics The aortic pressure is 99/48 mmHg with a mean of 66 mmHg. PCI Technique Lesion Anticoagulation was achieved with Heparin. Patient was preloaded with Plavix. Percutaneous coronary intervention was performed on the mid right coronary artery. The lesion stenosis prior to intervention was 90% with CHARITY 3 flow. A 6F 3DRC Guide Catheter was used to engage the RIGHT ostium. A IG: BMW 190cm Interventional Guidewire was used to cross the lesion. BALLOON DILATION A Balloon catheter Trek RX 2.5 X 12 was inserted and inflated up to 8.00atm for 10seconds. Repeat [place] [address] CARDIAC CATH REPORT Name: BRYCE PRIEST Room: [address]#: [id number] Admission: 07/16/19 Attend Phys: Kathy Espinoza MD Discharge: 07/17/19 Date of : 52 Report #: [id number] post-dilatation results: 50% stenosis. Additional Inflation: 12.00atm for 12seconds. STENT DEPLOYMENT A drug-eluting stent David RX Stent 2.5X30mm was inserted and inflated up to 14.00atm for 15seconds. Additional Inflation: 17.00atm for 18seconds. 0% mid stenosis noted but 80% stenosis noted beyond stent. Second drug eluting stent was placed just distal to stent with minimal overlap using a 2.5 x 12 mm stent. Final angiography reveals 0 % stenosis with CHARITY 3 flow. PCI Technique Lesion Patient was preloaded with Heparin IV 6000 units. STENT DEPLOYMENT A drug-eluting stent David RX Stent 2.5X12mm was inserted and inflated up to 14.00atm for 9seconds. Additional Inflation: 16.00atm for 14seconds. Additional Inflation: 20.00atm for 13seconds. Conclusion 1. Patent ADAMES graft to LAD, and SVG to marginal branch of the circumflex 2. Long stented segment of proximal and mid rca with sequential 90% and 80% stenosis noted 3. successful placement of 2 drug eluting stents in the rca Recommendations Cardiac Rehabilitation Referral Aggressive Medical Therapy <ELECTRONICALLY SIGNED> By: Sascha Shepherd MD, [facility] 07/17/19 1621 162 [id number] Shepherd MD, [facility] /INF
--- NOTE | 2019-07-18 16:36 | CON ---
[address] [address] CONSULTATION Name: BRYCE PRIEST Room: [address] IN M.R.#: [id number] Admission: 07/16/19 Attend Phys: Kathy Espinoza MD Discharge: 07/17/19 Date of : 52 Report #: [id number] THIS REPORT FOR: //name// CC: Dr. Brian Ulloa DATE OF SERVICE: 07/16/2019 CARDIOLOGY CONSULTATION HISTORY OF PRESENT ILLNESS: The patient is a 68-year-old single white male, who I was asked to see in the hospital after he complained of chest pain. The patient has an extensive and complicated past medical history. He had a history of multiple coronary stents, both at [facility] here at [facility] by Dr. Doll. He eventually underwent 5-vessel bypass surgery at [facility] last September. His surgeon, Dr. Foster Shahid apparently told the patient that there was difficulty finding conduits for his surgery. He eventually had a vein graft, removed from his leg. He also apparently had bilateral femoral cut downs as well as a cut down to the right mammary artery. He has actually done well since that time. However, at 4 in the morning, he awakened with heaviness in chest, became short of breath, diaphoretic, nauseated. The discomfort radiated to his jaw. He took 3 nitroglycerins, did not seem to help. He called an ambulance and was brought here to [facility]. He was admitted for further evaluation and treatment. He notes the pain was similar to the pain he had in the past with his heart. He has had a cough recently and shortness of breath. He denies any fever. The chest pain was not related to coughing. He had no recent trauma to his chest. The pain was not related to food. He had no recent bleeding. PAST MEDICAL HISTORY: Otherwise, he has had a cholecystectomy. He has diabetes, hypertension, hyperlipidemia. MEDICATIONS: Consists of following: Aspirin, Lipitor, carvedilol, insulin, lisinopril, Ranexa, Plavix. ALLERGIES: HE HAS A PREVIOUS REACTION TO CONTRAST. FAMILY HISTORY: His mother had a heart attack. 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 Quit smoking years ago. No alcohol abuse. REVIEW OF SYSTEMS: He has had a previous stroke involving his right side. He has no history of peptic ulcer disease, liver disease, kidney disease, cancer, psychiatric illness, [place] [address] CONSULTATION Name: BRYCE PRIEST Room: [address]#: [id number] Admission: 07/16/19 Attend Phys: Kathy Espinoza MD Discharge: 07/17/19 Date of : 52 Report #: [id number] PHYSICAL EXAMINATION: GENERAL: An elderly male, lying in bed. He appeared in no distress. VITAL SIGNS: Blood pressure 140/80, pulse 80. He is afebrile. HEENT: He is anicteric. Conjunctivae pink. Mucous membranes are moist. NECK: Veins are nondistended. Left carotid bruits heard. CHEST: Clear to auscultation. CARDIOVASCULAR: Regular rate and rhythm. ABDOMEN: Soft. EXTREMITIES: Had no edema. SKIN: Cool and dry. NEUROLOGIC: Nonfocal. RADIOLOGICAL DATA: His ECG done last night showed a sinus rhythm, PVCs, evidence of previous anterior infarction. His workup, he actually had a nuclear stress test done here at [facility] in March that showed no evidence of ischemia with a normal ejection fraction. He had a portable chest x-ray done last night that showed normal heart size, clear lung barnard. LABORATORY WORK: Sodium 133, creatinine 1.0, glucose 326. Troponin 0.06. Cholesterol 245, triglyceride 234, HDL 35, LDL 164. His white blood cell count 5.1, hemoglobin 15.1. IMPRESSION AND RECOMMENDATIONS: 1. Unstable angina. Recommend cardiac catheterization. 2. Previous coronary artery bypass surgery. The patient is on aspirin and Plavix. 3. Diabetes. 4. Hypertension. 5. Hyperlipidemia. The patient has been on a statin drug. 6. Previous tobacco abuse. The patient no longer smokes. 7. History of carotid stenosis. The patient is followed by his primary care physician. He has had a previous stroke in the past. <ELECTRONICALLY SIGNED> By: Sascha Shepherd MD, [facility] 07/18/19 1636 0944 [id number] Shepherd MD, FAC /nt
== END 2019-07-17 13:56 | disposition home or self-care (01) | DRG 247 ==
LOC: M.ERS 06:22 → M.2W 07:16 → M.TBA-ER 07:16 → M.2W 08:17
PROVIDERS: Family Medicine; ADMIT Internal Medicine
DX: I25.110 Atherosclerotic heart disease of native coronary artery with unstable angina pectoris (principal); I69.351 Hemiplegia and hemiparesis following cerebral infarction affecting right dominant side; E11.9 Type 2 diabetes mellitus without complications; I10 Essential (primary) hypertension; E78.5 Hyperlipidemia, unspecified; Z95.5 Presence of coronary angioplasty implant and graft; Z79.82 Long term (current) use of aspirin; Z88.8 Allergy status to other drugs, medicaments and biological substances; Z90.49 Acquired absence of other specified parts of digestive tract; Z87.891 Personal history of nicotine dependence; Z91.041 Radiographic dye allergy status; Z82.49 Family history of ischemic heart disease and other diseases of the circulatory system; Z95.1 Presence of aortocoronary bypass graft

== ENCOUNTER 2019-09-26 09:29 | Inpatient (IN) | payer OTHER ==
[~2019-09-26] VITALS: Ht 170.2 cm; Wt 88.2 kg
[~2019-09-26 09:29] MED LIST changes: +ZETIA10 MG PO
[2019-09-26 09:36] VITALS: BP 149/69
[2019-09-26] MEDS ORDERED: INSULIN 70/30 SUBQ (09:42)
[2019-09-26] MEDS ORDERED: LASIX 40 MG TAB40 MG PO (09:43)
[2019-09-26 10:02] LABS: ABSOLUTE EOSINOPHILS 0.3 thou/uL (0.0-0.7); ABSOLUTE LYMPHOCYTES 0.8 thou/uL (0.8-5.3); ABSOLUTE MONOCYTES 0.4 thou/uL (0.0-1.2); ABSOLUTE NEUTROPHILS 3.7 thou/uL (1.6-8.1); BASOPHILS 0.7 %; EOSINOPHILS 5.9 %; HEMATOCRIT 43.6 % (42.0-52.0); HEMOGLOBIN 14.5 gm/dL (14.0-18.0); LYMPHOCYTES 16.1 %; MCH 29.9 pg (26.0-34.0); MCHC 33.2 g/dL (28.0-37.0); MCV 90.1 fL (80.0-100.0); MONOCYTES 7.5 %; MPV 10.3 fl. (7.2-11.1); NUCLEATED RBCS 0 /100WBC; PLATELET COUNT* 185 thou/uL (150-400); POLYS 69.8 %; RBC 4.84 mil/uL (4.50-6.00); RDW-CV 13.3 % (10.5-14.5); WBC 5.3 thou/uL (4.0-11.0)
[2019-09-26 10:18] LABS: CALCIUM 9.6 mg/dL (8.5-10.1); CREATININE 1.3 mg/dL (0.6-1.3); POTASSIUM 4.5 mmol/L (3.5-5.1)
[2019-09-26 10:25] LABS: ALBUMIN 3.7 g/dL (3.4-5.0); TOTAL BILIRUBIN 0.2 mg/dL (<0.1-1.0); TOTAL PROTEIN 7.8 g/dL (6.4-8.2)
[2019-09-26 10:33] LABS: APTT 27.4 Seconds (25.0-31.3); INR 0.9; PROTIME 9.7 Seconds (9.20-11.50)
[2019-09-26 12:40] VITALS: BP 131/66
--- NOTE | 2019-09-26 14:34 | EKG ---
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1950 Requested By: Daiana Diaz Order Number: [id number] MD: Sascha Shepherd Measurements Intervals [place] Rate: 75 P: 55 NC: 173 QRS: -36 QRSD: 86 T: 61 QT: 380 QTc: 425 Interpretive Statements Sinus rhythm Ventricular trigeminy Probable left atrial enlargement Left axis deviation Anterior infarct, old Compared to ECG 07/17/2019 03:36:48 Myocardial infarct finding still present Electronically Signed On 09-26-2019 14:34:21 CDT by Sascha Shepherd [email or web address] <ELECTRONICALLY SIGNED> By: Sascha Shepherd MD, [facility] 09/26/19 1434 0936 0936 Sascha Shepherd MD, [facility] /EPI
[2019-09-26 15:26] VITALS: BP 151/69
--- NOTE | 2019-09-26 15:48 | NUR ---
VSS, ASSUMED CARE IN THE AM, ASSESSMENT PERFORMED AND CHARTED, FALL PRECAUTIONS IN PLACE AND CALL LIGHT IN REACH, PT IS A&O4 AND UP AD OLVIN, STATES CHEST PAIN AND IS TRACING SR ON THE MONITOR, PT STATES CHEST PAIN RATES 8 OUT OF 10 PT IS ON 2L NC PRN, WILL FOLLOW WITH PLAN OF CARE.
[2019-09-26 20:00] VITALS: BP 115/62
[2019-09-27] VITALS: BP 109/49
[2019-09-27 02:06] LABS: GLYCOHEMOGLOBIN (HGB A1C) 12.3 % (4.8-5.6)
[2019-09-27 03:30] VITALS: BP 128/57
[2019-09-27 04:45] LABS: HEMATOCRIT 41.3 % (42.0-52.0); HEMOGLOBIN 13.6 gm/dL (14.0-18.0); MCH 29.4 pg (26.0-34.0); MCHC 33.1 g/dL (28.0-37.0); MCV 88.9 fL (80.0-100.0); MPV 10.4 fl. (7.2-11.1); RBC 4.64 mil/uL (4.50-6.00); RDW-CV 13.6 % (10.5-14.5); WBC 6.7 thou/uL (4.0-11.0)
[2019-09-27 05:13] LABS: ANION GAP 7 mmol/L (7-16); BUN 17 mg/dL (7-18); CALCIUM 8.9 mg/dL (8.5-10.1); CHLORIDE 102 mmol/L (98-107); CHOLESTEROL 157 mg/dL (<200); CO2 30 mmol/L (21-32); GLUCOSE 108 mg/dL (70-99); HDL CHOLESTEROL 28 mg/dL (>40); LDL CHOLESTEROL 105 mg/dL (<100); MAGNESIUM 1.8 mg/dL (1.8-2.4); POTASSIUM 3.8 mmol/L (3.5-5.1); SODIUM 139 mmol/L (136-145); TC:HDL 5.6 Ratio (Not establshd); TRIGLYCERIDE 123 mg/dL (<150); TROPONIN-I LEVEL <0.06 ng/mL (<0.06); VLDL 25 mg/dL (<40)
[2019-09-27 05:14] LABS: SERUM ASSESSMENT CLEAR
--- NOTE | 2019-09-27 06:11 | NUR ---
PT HAS RESTED T/O. PT STILL C/O CHEST PAIN. PT JEAN RA. TELE SHOWS SR. PT HAS NO FURTHER REUQEST.CALL LIGHT WITHIN REACH.
[2019-09-27 11:55] VITALS: BP 124/63
--- NOTE | 2019-09-27 14:25 | NUR ---
Pt is A&O. Resides at home with his son and dtr. Independent. Pt has a walker and cane that he can use for mobility as needed. Pt also has a wc. Hx of HH. Hx of acute rehab. Pt's goal is to return home at dc. Per , Pt's pain needs to be better controlled prior to dc. Following.
[2019-09-27 16:42] VITALS: BP 93/50
[2019-09-27 17:00] VITALS: BP 110/40
--- NOTE | 2019-09-27 18:51 | NUR ---
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 PT CONT TO C/O CHEST PAIN 7-10/10, PRN PAIN MEDS ON BOARD, PT TOLERATING WELL, EKG CLEAR, DR NOTIFIED. IMDUR STARTED, PT REMAINED TOO HYPOTENSIVE TO ADMINISTER. HOURLY ROUNDING COMPLETED.
[2019-09-28 00:24] VITALS: BP 110/37
[2019-09-28 04:40] VITALS: BP 135/46
[2019-09-28 08:15] VITALS: BP 141/60
[2019-09-28] MEDS ORDERED: RANEXA500 MG PO (09:27)
[2019-09-28] MEDS ORDERED: CYCLOBENZAPRINE10 MG PO (09:27)
[2019-09-28] MEDS ORDERED: LIPITOR80 MG PO (09:27)
--- NOTE | 2019-09-28 14:39 | EKG ---
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: : 1950 Requested By: Ramos Doll Order Number: [id number] MD: Ramos Doll Measurements Intervals [place] Rate: 72 P: 53 GA: 189 QRS: -38 QRSD: 84 T: 51 QT: 367 QTc: 402 Interpretive Statements Sinus rhythm Multiple ventricular premature complexes Inferior infarct, old Anteroseptal infarct, old Compared to ECG 09/26/2019 09:36:34 Myocardial infarct finding still present Electronically Signed On 09-28-2019 14:39:08 CDT by Ramos Doll [email or web address] <ELECTRONICALLY SIGNED> By: Ramos Doll MD, FAC 09/28/19 1439 1158 1158 Ramos Doll MD, [facility] /EPI
[2019-09-28 15:24] VITALS: BP 110/54
--- NOTE | 2019-09-28 18:07 | CARDNUC ---
[place] [address] CARDIAC NUCLEAR IMAGING REPORT Name: BRYCE PRIEST Room: [address] IN ..#: [id number] Admission: 09/26/19 Attend Phys: Bryce Gonzalez, Discharge: Date of : 52 Date of Service: 09/28/19 1806 Report #: [id number] THIS REPORT FOR: //name// APPROVED REPORT Study performed: 09/28/2019 11:36:14 Exam: Nuclear Stress Test Ht: 5 ft 7 in Wt: 185 lbs BSA: 1.96 m2 BMI: 28.97 Stress Test Details HR Max Heart Rate (APMHR): 152 bpm Target HR (85% APMHR): 129 bpm BP ECG Resting ECG: Sinus Rhythm Stress ECG: Sinus Rhythm ST Change: None Arrhythmia: None Recovery ECG: Sinus Rhythm Recovery ST Change: None Clinical The patient tolerated Lexiscan infusion without significant symptoms. Stress ECG Conclusion The baseline 12-lead EKG showed sinus rhythm with PVCs. EKGs obtained during and post Lexiscan showed sinus rhythm with no significant ST or T wave changes when compared to baseline. The patient had occasional PVCs. NM EXAM: Myocardial Perfusion REST/STRESS Imaging Protocol: Rest Tc-99m/Stress Tc-99m 1 day Resting Data Rest SPECT myocardial perfusion imaging was performed in supine position 30 minutes following the intravenous injection of 11.0 mCi of Tc-99m Sestamibi. Time of rest injection: 1000 The images were gated to evaluate regional [place] [address] CARDIAC NUCLEAR IMAGING REPORT Name: BRYCE PRIEST Room: [address]#: [id number] Admission: 09/26/19 Attend Phys: Bryce Gonzalez, Discharge: Date of : 52 Date of Service: 09/28/19 1806 Report #: [id number] left ventricular ejection fraction. Administration Route: IV Administration Site: Right Arm Pharmacologic Stress Pharmacologic stress test was performed by injecting Regadenoson 0.4 mg IV push followed by the intravenous injection of 33.0 mCi of Tc-99m Sestamibi. Time of stress injection: 12:35 Administration Route: IV Administration Site: Right Arm Heart Rate at time of stress injection: 82 bpm. Gated Stress SPECT was performed 40 minutes after stress injection. The images were gated to evaluate regional wall motion and calculate left ventricular ejection fraction. Prone imaging was performed. Study Quality Study: Good Artifact: No artifact Study Data At rest, the left ventricular ejection fraction was 74%.. Post stress, the left ventricular ejection was 69%.. TID = 1.20. Perfusion Normal left ventricular perfusion. Wall Motion Normal left ventricular wall motion. Nuclear Conclusion ECG Findings: negative for ischemia Clinical Findings: negative for ischemia Nuclear Findings: negative for ischemia Exercise Capacity: not assessed Left Ventricular Function: normal Risk Study: low Myocardial perfusion images showed no defect to suggest infarct or ischemia. On gated studies left ventricular systolic function is normal. This is a low risk study. <Conclusion> The baseline 12-lead EKG showed sinus rhythm with [place] [address] CARDIAC NUCLEAR IMAGING REPORT Name: BRYCE PRIEST Room: [address]#: [id number] Admission: 09/26/19 Attend Phys: Bryce Gonzalez, Discharge: Date of : 52 Date of Service: 09/28/191805 Report #: [id number] during and post Lexiscan showed sinus rhythm with no significant ST or T wave changes when compared to baseline. The patient had occasional PVCs. <ELECTRONICALLY SIGNED> By: Jaciel Leger MD, FACC 09/28/191805 05 05 Jaciel Leger MD, FACC /INF
[2019-09-28 20:00] VITALS: BP 126/60
[2019-09-29] VITALS: BP 129/58
[2019-09-29 04:00] VITALS: BP 111/59
[2019-09-29 08:00] VITALS: BP 135/42
[2019-09-29] MEDS ORDERED: NORCO 5-325 TA1 EAC1 PO ×2 (10:13→12:09)
[2019-09-29 11:44] VITALS: BP 135/42
--- NOTE | 2019-09-29 12:20 | NUR ---
PATIENT DISCHARGED TO HOME ALL DISCHARGE INSTRUCTIONS GIVEN IV AND HEART MONITOR REMOVED DISCHARGE PAPERWORK SIGNED AND COPIES GIVEN PATIENT ESCORTED OUT AMBULATORY TO WAITING CAR
--- NOTE | 2019-09-30 19:18 | CON ---
[address] [address] CONSULTATION Name: BRYCE PRIEST Room: [address] IN M.R.#: [id number] Admission: 09/26/19 Attend Phys: Bryce Gonzalez MD Discharge: 09/29/19 Date of : 52 Report #: [id number] THIS REPORT FOR: //name// CC: Dr. Artemio Ulloa DATE OF SERVICE: 09/26/2019 CARDIOLOGY CONSULTATION HISTORY OF PRESENT ILLNESS: The patient is a 69-year-old single white male who I was asked to see in the hospital today after complaining of chest pain. The patient has an extensive past medical history. He has a history of coronary artery stents dating back to 2003 when he was in [place]. He had previous aortic valve replacement using a bovine tissue valve at [facility] in 2013. Eventually, he underwent 5-vessel bypass surgery at [facility] a year ago. He was admitted to [facility] 2 months ago in June with chest heaviness. I saw him in consultation and performed repeat cardiac catheterization on 07/16/2019 from the right femoral artery. Results showed a patent ADAMES graft to the LAD, patent saphenous vein graft to a distal marginal branch of circumflex, although the vein graft had a narrow lumen. There is a 70% stenosis of mid LAD, 80% stenosis of the distal circumflex artery. The right coronary artery had a long stent. There was a 90% narrowing noted in the acute margin of the right coronary artery. No ventriculogram was performed. He was loaded with heparin. I then placed two drug-eluting stents in the right coronary artery. He was loaded with Plavix. He has done well since that time and stays active including fishing. He was doing well until this morning. He was at home, felt some pressure in his chest, became short of breath. He took 3 nitroglycerins, did not seem to help. He called the ambulance and brought here to [facility] by ambulance. He was admitted for further evaluation and treatment. He denies any recent exertional dyspnea, palpitations, syncope, or peripheral edema. He has been taking his aspirin and Plavix. PAST MEDICAL HISTORY: Significant for cholecystectomy. He has diabetes, hypertension, hyperlipidemia. MEDICATIONS: Consist of aspirin, Lipitor, carvedilol, insulin, lisinopril, Plavix. ALLERGIES: HE HAD A PREVIOUS REACTION TO TORADOL WELL IV CONTRAST. FAMILY HISTORY: His father had a heart attack. SOCIAL HISTORY: , lives with his son in [place], [place]. 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 Quit smoking in 2003, [place] [address] CONSULTATION Name: BRYCE PRIEST Room: [address] IN ..#: [id number] Admission: 09/26/19 Attend Phys: Bryce Gonzalez MD Discharge: 09/29/19 Date of : 52 Report #: [id number] REVIEW OF SYSTEMS: Apparently, he had a previous stroke involving the right side of his body that recovered. He has no history of peptic ulcer disease, liver disease, kidney disease, cancer, psychiatric illness, chronic skin condition. PHYSICAL EXAMINATION: GENERAL: Revealed a middle-aged male, appeared in no acute distress. VITAL SIGNS: Blood pressure is 140/60, pulse 70, he is afebrile. HEENT: He was anicteric. Conjunctivae pink. Mucous membranes moist. NECK: Veins nondistended. Radial systolic murmur noted in carotids. CHEST: Clear to auscultation. CARDIOVASCULAR: Regular rate and rhythm with a grade 2 systolic ejection murmur. ABDOMEN: Soft. EXTREMITIES: Had no edema. Dorsalis pedis pulse cannot be palpated. SKIN: Cool and dry. NEUROLOGIC: Nonfocal. RADIOLOGICAL DATA: ECG shows a sinus rhythm with occasional PVCs. There is evidence of previous anterior infarction. No acute ST or T-wave changes noted. The patient had a previous echocardiogram a year ago that showed ejection fraction of 60%, evidence of a tissue valve in aortic position, mild mitral regurgitation. His x-rays, he had a portable chest x-ray today that showed no acute abnormality. LABORATORY DATA: Sodium 132, creatinine 1.3, glucose 657. Liver function studies were normal. His troponin was all less than 0.06. BNP 189. In June, cholesterol 245, triglyceride 234, HDL 35, LDL 164. His white blood cell count 5.3, hemoglobin 14.5. IMPRESSION AND RECOMMENDATION: 1. Chest pain. No evidence of acute myocardial infarction. I will continue medical therapy at this time. I would not recommend stress testing or repeat cardiac catheterization. I would continue aspirin and Plavix. 2. Diabetes. 3. Hypertension. The patient is on an ARB and beta-annie. 4. Hyperlipidemia. The patient has been on a statin drug. 5. Previous aortic valve replacement using a tissue valve. <ELECTRONICALLY SIGNED> By: Sascha Shepherd MD, [facility] 09/30/191917 1414 1543Danmol Shepherd MD, FACC /nt
--- NOTE | 2019-10-01 16:20 | NUR ---
Made a follow up phone call to his daughter at the [facility] he gave us on admission. No answer, left a message with a return phone number for her or the patient to call with any questions or concerns.
== END 2019-09-29 12:20 | disposition home or self-care (01) | DRG 313 ==
LOC: M.ERS 09:29 → M.2W 11:00 → M.TBA-ER 11:00 → M.2W 12:51
PROVIDERS: Personal Emergency Response Attendant; ADMIT Internal Medicine
DX: R07.89 Other chest pain (principal); I25.110 Atherosclerotic heart disease of native coronary artery with unstable angina pectoris; I69.351 Hemiplegia and hemiparesis following cerebral infarction affecting right dominant side; E11.65 Type 2 diabetes mellitus with hyperglycemia; E78.5 Hyperlipidemia, unspecified; E11.22 Type 2 diabetes mellitus with diabetic chronic kidney disease; N18.2 Chronic kidney disease, stage 2 (mild); I12.9 Hypertensive chronic kidney disease with stage 1 through stage 4 chronic kidney disease, or unspecified chronic kidney disease; Z95.1 Presence of aortocoronary bypass graft; Z95.5 Presence of coronary angioplasty implant and graft; Z79.84 Long term (current) use of oral hypoglycemic drugs; Z79.82 Long term (current) use of aspirin; Z88.8 Allergy status to other drugs, medicaments and biological substances; Z91.041 Radiographic dye allergy status; Z90.49 Acquired absence of other specified parts of digestive tract; Z82.49 Family history of ischemic heart disease and other diseases of the circulatory system

== ENCOUNTER 2019-12-17 20:14 | Inpatient (IN) | payer OTHER ==
[~2019-12-17] VITALS: Ht 170.2 cm; Wt 88.0 kg
[~2019-12-17 20:14] MED LIST changes: +CYCLOBENZAPRINE10 MG PO; +INSULIN 70/30 SUBQ; +LASIX 40 MG TAB40 MG PO; +NORCO 5-325 TA1 EAC1 PO
[2019-12-17 20:16] VITALS: BP 150/70
[2019-12-17 21:09] LABS: INFLUENZA A ANTIGEN Negative (Negative); INFLUENZA B ANTIGEN Negative (Negative)
[2019-12-17 21:38] LABS: ABSOLUTE BASOPHILS 0.1 thou/uL (0.0-0.2); ABSOLUTE EOSINOPHILS 0.3 thou/uL (0.0-0.7); ABSOLUTE MONOCYTES 0.5 thou/uL (0.0-1.2); ABSOLUTE NEUTROPHILS 4.7 thou/uL (1.6-8.1); EOSINOPHILS 5.3 %; HEMATOCRIT 40.1 % (42.0-52.0); HEMOGLOBIN 13.6 gm/dL (14.0-18.0); LYMPHOCYTES 14.4 %; MCH 30.5 pg (26.0-34.0); MCV 89.7 fL (80.0-100.0); MONOCYTES 7.7 %; MPV 10.4 fl. (7.2-11.1); NUCLEATED RBCS 0 /100WBC; PLATELET COUNT* 117 thou/uL (150-400); POLYS 71.6 %; RBC 4.47 mil/uL (4.50-6.00); RDW-CV 13.8 % (10.5-14.5); WBC 6.6 thou/uL (4.0-11.0)
[2019-12-17 21:48] LABS: CALCIUM 8.8 mg/dL (8.5-10.1); POTASSIUM 4.4 mmol/L (3.5-5.1)
[2019-12-17 21:51] LABS: PROTIME 9.8 Seconds (9.20-11.50)
[2019-12-17 21:59] LABS: ALBUMIN 3.6 g/dL (3.4-5.0); TOTAL BILIRUBIN 0.4 mg/dL (<0.1-1.0); TOTAL PROTEIN 7.3 g/dL (6.4-8.2)
[2019-12-18] VITALS (7 sets, daily range): BP systolic 90–138; BP diastolic 40–54
--- NOTE | 2019-12-18 06:08 | NUR ---
ADMITTED TO ROOM 207 AT 0215, SEE ASSESSMENTS. PT REPORTS HE EXPERIENCES CHEST PAIN DAILY AVERAGING 4/10, HOWEVER, YESTERDAY IT WAS SEVERE AND RADIATED TO HIS JAW PROMPTING HIS ER VISIT. 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 PT ORIENTED TO ROOM/CALL LIGHT. CALL LIGHT WITHIN REACH.
--- NOTE | 2019-12-18 11:06 | EKG ---
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1950 Requested By: Bea Montejo Order Number: [id number] MD: Sascha Shepherd Measurements Intervals [place] Rate: 77 P: 51 AR: 181 QRS: -44 QRSD: 87 T: 65 QT: 364 QTc: 412 Interpretive Statements Sinus rhythm Probable left atrial enlargement Anterior infarct, old Baseline wander in lead(s) I,V1 Compared to ECG 09/28/2019 11:58:05 Ventricular premature complex(es) no longer present Myocardial infarct finding still present Electronically Signed On 12-18-2019 11:05:55 FLOW MANAGER by Sascha Shepherd [email or web address] <ELECTRONICALLY SIGNED> By: Sascha Shepherd MD, FAC 12/18/19 1105 16 16 Sascha Shepherd MD, [facility] /EPI
--- NOTE | 2019-12-18 13:03 | NUR ---
Pt is A&O. Resides at home with family. Independent. Pt has a walker and cane that he can use for mobility, primarily uses the cane. Pt states that his HH with [facility] just ended yesterday, Pt unsure if he will want HH at [facility]. No hx of SNF. Hx of acute rehab at [facility] and [facility]. Goal is home at [facility], no needs anticipated. Following.
--- NOTE | 2019-12-18 16:53 | 2DMMODE ---
[place] [address] 2 D/M-MODE ECHOCARDIOGRAM Name: BRYCE PRIEST Room: [address] IN [facility]#: [id number] Admission: 12/18/19 Attend Phys: Gi Mathews Discharge: Date of : 52 Date of Service: 12/18/19 165 Report #: [id number] THIS REPORT FOR: //name// APPROVED REPORT Study performed: 12/18/2019 14:35:58 EXAM: Comprehensive 2D, Doppler, and color-flow Echocardiogram Patient Location: In-Patient Room #: [facility] Status: routine BSA: 2.00 HR: 65 bpm BP: 109/46 mmHg Rhythm: NSR Other Information Study Quality: Good Indications CAD Chest Pain 2D Dimensions IVSd: 10.76 (7-11mm) LVOT Diam: 18.54 (18-24mm) LVDd: 38.30 mm PWd: 8.76 (7-11mm) LVDs: 24.90 (25-40mm) Aortic Root: 28.03 mm Volumes Left Atrial Volume (Systole) LA ESV Index: 32.00 mL/m2 Aortic Valve AoV Peak Caleb.: 2.13 m/s AO Peak Gr.: 18.19 mmHg LVOT Max P.12 mmHg AO Mean Gr.: 9.73 mmHg LVOT Mean P.78 mmHg LVOT Max V: 1.43 m/s AO V2 VTI: 38.09 cm LVOT Mean V: 1.04 m/s VELASQUEZ (VTI): 2.20 cm2 LVOT V1 VTI: 31.09 cm Mitral Valve MV Mean Gr.: 3.02 mmHg E/A Ratio: 1.17 MV Decel. Time: 298.73 [place] [address] 2 D/M-MODE ECHOCARDIOGRAM Name: BRYCE PRIEST Room: [address] IN .R.#: [id number] Admission: 12/18/19 Attend Phys: Gi Mathews Discharge: Date of : 52 Date of Service: 12/18/19 1652 Report #: [id number] MV E Max Caleb.: 1.40 m/s MV PHT: 86.63 ms MVA (PHT): 2.54 cm2 TDI E/Lateral E': 12.73 E/Medial E': 15.56 Medial E' Caleb.: 0.09 m/s Lateral E' Caleb.: 0.11 m/s Pulmonary Valve PV Peak Caleb.: 1.00 m/s PV Peak Gr.: 3.97 mmHg Left Ventricle The left ventricle is normal size. There is normal LV segmental wall motion. There is normal left ventricular wall thickness. Left ventricular systolic function is normal. LVEF is 60-65%. Transmitral Doppler flow pattern suggests restrictive physiology. Right Ventricle The right ventricle is normal size. The right ventricular systolic function is normal. Atria Left atrium is mildly dilated. The right atrium size is normal. Aortic Valve Bioprosthetic aortic valve is present. No aortic regurgitation is present. There is no aortic valvular stenosis. Mitral Valve Moderate mitral annular calcification. Mild mitral regurgitation. Mild mitral stenosis. Tricuspid Valve The tricuspid valve is normal in structure. Trace tricuspid regurgitation. Unable to assess PA pressure. Pulmonic Valve The pulmonary valve is normal in structure. There is no pulmonic valvular regurgitation. Great Vessels The aortic root is normal in size. IVC is normal in size and collapses >50% [place] [address] 2 D/M-MODE ECHOCARDIOGRAM Name: BRYCE PRIEST Room: [address]#: [id number] Admission: 12/18/19 Attend Phys: Gi Mathews Discharge: Date of : 52 Date of Service: 12/18/19 1652 Report #: [id number] Pericardium There is no pericardial effusion. <Conclusion> The left ventricle is normal size. There is normal left ventricular wall thickness. Left ventricular systolic function is normal. LVEF is 60-65%. Transmitral Doppler flow pattern suggests restrictive physiology. Left atrium is mildly dilated. Bioprosthetic aortic valve is present. No aortic regurgitation is present. There is no aortic valvular stenosis. Moderate mitral annular calcification. Mild mitral regurgitation. Mild mitral stenosis. Trace tricuspid regurgitation. Unable to assess PA pressure. <ELECTRONICALLY SIGNED> By: Jaciel Leger MD, FACC 12/18/191651 51 51 Jaciel Leger MD, FACC /INF
--- NOTE | 2019-12-18 19:33 | NUR ---
ASSUMED PT CARE AT 0730, FULL ASSESMENT DONE CHARTED. PT A/O X4, C/O CHEST PAIN, STATES IT IS "PRESSURE IN THE MIDDLE OF MY CHEST", PT RATES AT 05/07. DISCUSSED PAIN MEDS WITH PT MULTIPLE TIMES TODAY BASED ON DISCUSSION WITH PHYSICIANS. PT GIVEN MEDS PER JAN. PTS BP LOW THIS AFTERNOON, NOTIFIED DR BOONE, ORDERS CHANGED. PT C/O NAUSEA, ZOFRAN GIVEN, PTS BLOOD SUGAR "LOW"PER PT, LISPRO INSULIN HELD. PT UP WITH ASSIST, USING CALL LIGHT APPROPRIATLY. FALL PRECAUTIONS IN PLACE. REPORT GIVEN TO VENITA AMANDA
[2019-12-19] VITALS (7 sets, daily range): BP systolic 105–134; BP diastolic 39–62
[2019-12-19 02:14] LABS: URINE BILIRUBIN NEGATIVE (Negative); URINE BLOOD NEGATIVE (Negative); URINE CLARITY CLEAR; URINE COLOR YELLOW; URINE GLUCOSE-RANDOM 1+ (Negative); URINE KETONES NEGATIVE (Negative); URINE LEUKOCYTES-REFLEX NEGATIVE (Negative); URINE NITRITE-REFLEX NEGATIVE (Negative); URINE PROTEIN NEGATIVE (Negative); URINE UROBILINOGEN 0.2 E.U./dl (0.2-1.0)
--- NOTE | 2019-12-19 05:11 | NUR ---
PATIENT PARTIALLY PROGRESSING TOWARDS GOALS: PAIN AND NAUSEA MANAGED WITH MEDICATION AND RELAXATION TECHNIQUES. PATIENT'S FELT LIKE HIS BLOOD SUGAR WAS LOW- CHECK WAS 72. PROVIDED JUICE AND SNACKS WITH IMPROVEMENT. CALL LIGHT WITHIN REACH
[2019-12-19 05:44] LABS: HEMATOCRIT 37.7 % (42.0-52.0); HEMOGLOBIN 12.9 gm/dL (14.0-18.0); MCH 30.4 pg (26.0-34.0); MCHC 34.2 g/dL (28.0-37.0); MCV 88.8 fL (80.0-100.0); MPV 10.5 fl. (7.2-11.1); RBC 4.25 mil/uL (4.50-6.00); RDW-CV 13.5 % (10.5-14.5); WBC 5.9 thou/uL (4.0-11.0)
[2019-12-19 05:46] LABS: CREATININE 1.2 mg/dL (0.6-1.3); MAGNESIUM 1.7 mg/dL (1.8-2.4); POTASSIUM 4.2 mmol/L (3.5-5.1)
--- NOTE | 2019-12-19 08:12 | CON ---
[address] [address] CONSULTATION Name: BRYCE PRIEST Room: [address] IN M.R.#: [id number] Admission: 12/18/19 Attend Phys: Karla Hood Discharge: Date of : 52 Report #: [id number] THIS REPORT FOR: //name// CC: Sascha Shepherd MD [facility] Brian Mathews DATE OF SERVICE: 12/18/2019 INDICATION: Chest pain. HISTORY OF PRESENT ILLNESS: The patient is a 69-year-old gentleman who is well known to our service. He has a history of 5-vessel coronary artery bypass grafting at [facility] in 2018. He had aortic valve replacement with a bioprosthetic aortic valve in 2013. Apparently, he did not have any bypasses done at that time. He has had multiple interventions to the right coronary artery with stents from the proximal to distal right coronary artery presently. He has a single stent in the circumflex coronary artery. Stress testing in September of last year showed normal LV function without evidence of ischemia. Catheterization in June of last year showed the LAD diagonal system to have some plaquing without critical stenoses. There was a patent ADAMES graft to the LAD. Circumflex was patent. An occluded marginal was filled by a saphenous vein graft. The right coronary artery had in-stent restenosis in the mid right coronary artery for which he received another stent. His PDA is very small in luminal caliber. EKG on admission showed sinus rhythm with Q-waves inferiorly and anteriorly without significant ST elevation. Troponins are less than 0.06 on 3 separate occasions. The patient reports constant continuous chest pain that was worsened yesterday, radiating to the jaw and continuous. He also notes some reproducible chest discomfort that is worse with deep breathing or cough. He is being treated for pneumonia. PAST MEDICAL HISTORY: 1. Coronary artery disease as outlined above. 2. Hypertension. 3. Hyperlipidemia. 4. Type 2 diabetes mellitus. 5. Coronary artery bypass grafting as outlined above. 6. Aortic valve replacement with a bioprosthetic aortic valve as outlined above. 7. Cholecystectomy. 8. [place] [address] CONSULTATION Name: BRYCE PRIEST Room: [address] IN [facility]#: [id number] Admission: 12/18/19 Attend Phys: Karla Hood Discharge: Date of : 52 Report #: [id number] HOME MEDICATIONS: Aspirin 81 mg daily, Lipitor 80 mg at bedtime, carvedilol 6.25 mg b.i.d., cyclobenzaprine 10 mg q.8 hours p.r.n., Zetia 10 mg daily, furosemide 40 mg daily, [place] 5/325 one tablet q.6 hours, sliding scale insulin subcutaneously a.c., Protonix 40 mg daily, ranolazine 500 mg b.i.d., clopidogrel 75 mg daily, 70/30 insulin 30 units subcutaneous b.i.d. FAMILY HISTORY: Positive for coronary artery disease in the patient's father who had prior [place]. ALLERGIES: TORADOL, MORPHINE AND IV CONTRAST. SOCIAL HISTORY: The patient is . 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 Quit smoking in 2003 and drinks alcohol rarely. PHYSICAL EXAMINATION: VITAL SIGNS: Blood pressure 109/46, pulse 80 and regular. GENERAL: This is a pleasant gentleman in no distress. Mood and affect appropriate. HEENT: Extraocular muscles intact. Mucous membranes are moist. NECK: Shows no jugular venous distention. There are no bruits. CHEST: Reveals diminished breath sounds with expiratory wheezes. CARDIOVASCULAR: Reveals a regular rhythm without gallop or murmur. ABDOMEN: Reveals a protuberant abdomen, soft and nontender. Bowel sounds present. EXTREMITIES: Shows no edema. SKIN: Dry. Peripheral pulses 2+ and palpable. IMPRESSION AND RECOMMENDATIONS: 1. Persistent chest pain without evidence of myocardial necrosis by serial enzymes. Doubt this represents an acute coronary syndrome. It could be related to his underlying pneumonia. Would treat for symptom relief. 2. Coronary artery disease presently appears stable. He does have an underlying milieu of coronary artery disease that could cause angina. I, at this point, would increase his ranolazine to 1000 mg twice daily and increase his carvedilol to 12.5 mg twice daily. 3. History of bioprosthetic aortic valve replacement. Repeat echocardiogram at this time. 4. Dyslipidemia. Continue atorvastatin and Zetia at current doses. 5. Hypertension, adequately controlled on current cardiac regimen. <ELECTRONICALLY SIGNED> By: Jaciel Leger MD, FACC 12/19/19 0812 1307 [id number] Leger MD, FACC /nt
[2019-12-19] MEDS ORDERED: REGLAN 10 MG TA10 MG PO (11:13)
[2019-12-19] MEDS ORDERED: LEVAQUIN 750 M750 MG PO (11:13)
[2019-12-19] MEDS ORDERED: CLOPIDOGREL75 MG PO (11:13)
[2019-12-19] MEDS ORDERED: RANEXA500 MG PO (11:13)
[2019-12-19] MEDS ORDERED: LIDOPATCH1 EACH TOP (11:13)
--- NOTE | 2019-12-19 16:28 | NUR ---
VSS, ASSUMED CARE IN THE AM, ASSESSMENT PERFORMED AND CHATRED, FALL PRECAUTIONS IN PLACE AND CALL LIGHT IN REACH, PT IS A&O4 AND IS UP AD OLVIN, TRACING SR ON THE MONITOR, PT STATES HE HAS CHRONIC PAIN IN LOWER BACK. PT GOAL IS TO IMPROVE BLOOD SUGARS AND DISCHARGE TO HOME, AT THIS TIME PT HAS BEEN GIVEN DISCHARGE PAPERS, PT DENIES ANY QUESTIONS AT TIME OF D/C PT IV And tele monitor, has been taken off, will follow with plan of care,
== END 2019-12-19 17:15 | disposition home or self-care (01) | DRG 194 ==
LOC: M.ERS 20:14 → M.2W 12-18 00:20 → M.TBA-ER 12-18 00:20 → M.2W 12-18 01:52
PROVIDERS: Emergency Medicine; Internal Medicine; ADMIT Internal Medicine
DX: J15.9 Unspecified bacterial pneumonia (principal); I13.0 Hypertensive heart and chronic kidney disease with heart failure and stage 1 through stage 4 chronic kidney disease, or unspecified chronic kidney disease; I50.32 Chronic diastolic (congestive) heart failure; E11.22 Type 2 diabetes mellitus with diabetic chronic kidney disease; N18.2 Chronic kidney disease, stage 2 (mild); E78.5 Hyperlipidemia, unspecified; I25.10 Atherosclerotic heart disease of native coronary artery without angina pectoris; R07.9 Chest pain, unspecified; Z95.5 Presence of coronary angioplasty implant and graft; Z88.8 Allergy status to other drugs, medicaments and biological substances; Z91.041 Radiographic dye allergy status; Z95.1 Presence of aortocoronary bypass graft; Z79.82 Long term (current) use of aspirin; Z79.899 Other long term (current) drug therapy; Z79.4 Long term (current) use of insulin; Z86.73 Personal history of transient ischemic attack (TIA), and cerebral infarction without residual deficits; Z95.2 Presence of prosthetic heart valve; Z90.49 Acquired absence of other specified parts of digestive tract; Z72.89 Other problems related to lifestyle; Z87.891 Personal history of nicotine dependence; Z82.49 Family history of ischemic heart disease and other diseases of the circulatory system

== ENCOUNTER 2020-06-26 14:30 | Inpatient (IN) | payer OTHER ==
[~2020-06-26] VITALS: Ht 170.2 cm; Wt 91.8 kg
--- NOTE | ~2020-06-26 | EMS ---
[place] [id number] EMS Patient Care Report Name: BRYCE PRIEST Room: [address] Gloria#: [id number] Admission: 06/26/20 Attend Phys: Karla Hood Discharge: Date of : 52 Report #: [id number] THIS REPORT FOR: //name// Report Transmitted: 06/26/2020 16:43 EMS Care Summary [facility] Incident [id number] @ 06/26/2020 13:16 Incident Location [id number] [place] [address] Patient BRYCE PRIEST Male, 69 Years 1950 Patient Address [id number] [place] [address] Patient History Diabetes,Cardiac - Stent,Coronary Artery Bypass Graft (CABG), Patient Allergies No known allergies, Chief Complaint Chest Pain Disposition Transported No Lights/[place] Dispatch Reason Chest Pain (Non-Traumatic) Transported To [facility] Narrative Dispatch: Med 1 responded to the above location for pt with CP; MFD responded for additional assistance. C/C: CP; Pt A/O appropriately; sitting upright; moderate distress; CP 07/07. HPI/TUSHAR/AMANUEL: Upon EMS arrival Pt was sitting upright [place] [address] EMS Patient Care Report Name: BRYCE PRIEST Room: [address]#: [id number] Admission: 06/26/20 Attend Phys: Karla Hood Discharge: Date of : 52 Report #: [id number] porch; stated he had a sudden onset of CP one hour prior; he self administered nitro and had no relief; an additional dose of nitro was self administered; no relief. Pt reported extensive cardiac hx; previous AK/previous bypass. Last stent placed approx. 7 months prior. Pt rated pain 8/10; radiating down left side of neck/arm. States this feels exactly like his previous cardiac event. Pt reported no allergies; unable to give current med list. Pt Loaded/secured to cot via seat belt straps; semi fabian position. Once loaded further assessment/intervention performed. Assessment: Primary Airway- Open, Patent Breathing- Non Labored, Regular, RA Circulation- Strong, Radial Regular LOC: GCS 15; A/O- PPTE Secondary- refer to detailed assessment/flowchart Skin- PWD Reason for Transport: Review of systems per symptoms Treatment: Assessment, Vitals, Flasher Adjuster, 12 Lead, R sided 12 Lead, IV access, Medication administration, Transport Summary of Call: Impression- CP Impact- Improved; pain managed during transport Disposition- Pt transported to [place] per pt request; Pt condition remained stable through out transport, no further incident/intervention. Radio report given via phone 17 mins. prior to arrival; verbal report given bedside upon transfer of care in ED. WALLACE Gore [id number] Initial Vitals @13:52MI Suspected: false @13:46P: 74,SpO2: 100, @14:00P: 80,R: 20,BP: 121/77,GCS: 15,SpO2: 100,Revised Trauma: 12, @13:55P: 78,R: 18,BP: 150/95,GCS: 15,SpO2: 100,Revised Trauma: 12, @13:44P: 72,Pain: 8/10,SpO2: 100, @13:38P: 77,Pain: 8/10,GCS: 15,SpO2: 100,AK Suspected: false @13:59P: 78,R: 22,BP: 178/90,Pain: 8/10,GCS: 15,Temp: 98.1F,Glucose: 243,SpO2: 100,Revised Trauma: 12,AK Suspected: false @13:53P: 74,R: 20,BP: 158/77,Pain: 8/10,GCS: 15,SpO2: 100,Revised Trauma: 12, @14:11P: 74,R: 20,BP: 126/73,GCS: 15,SpO2: 99,Revised Trauma: 12, @14:25P: 77,R: 18,BP: 151/82,Pain: 6/10,GCS: 15,SpO2: 100,Revised Trauma: 12,AK Suspected: [place] [address] EMS Patient Care Report Name: BRYCE PRIEST Room: [address] M.RJhoan#: [id number] Admission: 06/26/20 Attend Phys: Karla Hood Discharge: Date of : 52 Report #: [id number] @14:21P: 72,R: 20,BP: 160/91,Pain: 6/10,GCS: 15,SpO2: 100,Revised Trauma: 12, Assessments @13:32MENTAL:Person Oriented,Time Oriented,Place Oriented,Event Oriented,SKIN:HEENT:LUNG SOUNDS:ABDOMEN:PELVIS//GI:EXTREMITIES:PULSE:Radial: 2+ Normal,NEURO:@14:20MENTAL:No Abnormalities,SKIN:No Abnormalities,HEENT:Head/Face: No Abnormalities,Neck/Airway: No Abnormalities,LUNG SOUNDS:General: No Abnormalities,ABDOMEN:General: No Abnormalities,PELVIS//GI:EXTREMITIES:PULSE:NEURO:No Abnormalities, Impression Chest Pain / Discomfort Procedures @13:50Normal Saline (.9% NaCl) 10cc (22 ga) Site: Hand-RightResponse: UnchangedSucceeded@13:58Nitro [place] - 0.4 Milligrams (mg) - SublingualResponse: Unchanged@13:51Nitro [place] - 0.4 Milligrams (mg) - SublingualResponse: Unchanged@14:12Morphine - 4 Milligrams (mg) - Intravenous (IV)Response: Improved@13:4612-Lead ECG@13:4412-Lead ECG@13:5212-Lead ECG@14:2212-Lead ECG@13:37Aspirin - 324 Milligrams (mg) - OralResponse: Unchanged@14:0512-Lead ECG@13:3812-Lead ECG@14:2512-Lead ECG Timeline 13:15,Call Received 13:16,Dispatched 13:17,En Route 13:31,On Scene 13:32,At Patient 13:37,Aspirin - 324 Milligrams (mg) - Oral,Response: Unchanged 13:38,12-Lead ECG, 13:38,BP: / M,PULSE: 77,RR: R,SPO2: 100 Ox,ETCO2: ,BG: ,PAIN: 8,GCS: 15, 13:44,12-Lead ECG, 13:44,BP: / M,PULSE: 72,RR: R,SPO2: 100 Ox,ETCO2: ,BG: ,PAIN: 8,GCS: , 13:46,12-Lead ECG, 13:46,BP: / M,PULSE: 74,RR: R,SPO2: 100 Ox,ETCO2: ,BG: ,PAIN: ,GCS: , 13:50,Normal Saline (.9% NaCl) 10cc 22 ga Site: Hand-Right,Response: UnchangedSucceeded, 13:51,Nitro [place] - 0.4 Milligrams (mg) - Sublingual,Response: Unchanged 13:52,12-Lead ECG, 13:52,BP: / M,PULSE: ,RR: R,SPO2: Ox,ETCO2: ,BG: ,PAIN: ,GCS: , 13:53,BP: 158/77 M,PULSE: 74,RR: 20 R,SPO2: 100 Ox,ETCO2: ,BG: ,PAIN: 8,GCS: 15, 13:54,Depart Scene 13:55,BP: 150/95 M,PULSE: 78,RR: 18 R,SPO2: 100 Ox,ETCO2: ,BG: ,PAIN: ,GCS: 15, 13:58,Nitro [place] - 0.4 Milligrams (mg) - Sublingual,Response: Unchanged 13:59,BP: 178/90 M,PULSE: 78,RR: 22 R,SPO2: 100 Ox,ETCO2: ,B,[place]IN: [place] [address] EMS Patient Care Report Name: BRYCE PRIEST Karla Room: [address] Gloria#: [id number] Admission: 06/26/20 Attend Phys: Karla Hood Discharge: Date of : 52 Report #: [id number],GCS: 15, 14:00,BP: 121/77 M,PULSE: 80,RR: 20 R,SPO2: 100 Ox,ETCO2: ,BG: ,PAIN: ,GCS: 15, 14:05,12-Lead ECG, 14:11,BP: 126/73 M,PULSE: 74,RR: 20 R,SPO2: 99 Ox,ETCO2: ,BG: ,PAIN: ,GCS: 15, 14:12,Morphine - 4 Milligrams (mg) - Intravenous (IV),Response: Improved 14:21,BP: 160/91 M,PULSE: 72,RR: 20 R,SPO2: 100 Ox,ETCO2: ,BG: ,PAIN: 6,GCS: 15, 14:22,12-Lead ECG, 14:24,At Destination 14:25,12-Lead ECG, 14:25,BP: 151/82 M,PULSE: 77,RR: 18 R,SPO2: 100 Ox,ETCO2: ,BG: ,PAIN: 6,GCS: 15, 15:21,Call Closed Disclaimer v1.1 Copyright 2020 [employer] This EMS Care Summary contains data elements from the applicable legal record (which may be displayed differently). It is designed to provide pertinent information for the following purposes: continuity of care, clinical quality, and state data reporting. The complete legal record is available to ED staff and administrators of the receiving hospital in [employer]'s Patient Tracker. All data is provided "as is."
[~2020-06-26 14:30] MED LIST changes: +CLOPIDOGREL75 MG PO; +LEVAQUIN 750 M750 MG PO
[2020-06-26] MEDS ORDERED: ZETIA10 MG PO (14:36)
[2020-06-26 15:11] LABS: ABSOLUTE EOSINOPHILS 0.3 thou/uL (0.0-0.7); ABSOLUTE MONOCYTES 0.4 thou/uL (0.0-1.2); ABSOLUTE NEUTROPHILS 3.7 thou/uL (1.6-8.1); BASOPHILS 0.6 %; EOSINOPHILS 5.3 %; HEMATOCRIT 39.8 % (42.0-52.0); HEMOGLOBIN 13.4 gm/dL (14.0-18.0); LYMPHOCYTES 18.5 %; MCH 30.3 pg (26.0-34.0); MCHC 33.8 g/dL (28.0-37.0); MCV 89.7 fL (80.0-100.0); MONOCYTES 6.9 %; MPV 10.2 fl. (7.2-11.1); NUCLEATED RBCS 0 /100WBC; PLATELET COUNT* 126 thou/uL (150-400); POLYS 68.7 %; RBC 4.43 mil/uL (4.50-6.00); RDW-CV 13.1 % (10.5-14.5); WBC 5.4 thou/uL (4.0-11.0)
[2020-06-26 15:19] LABS: INR 0.9; PROTIME 9.6 Seconds (9.20-11.50)
[2020-06-26 15:20] LABS: CALCIUM 8.2 mg/dL (8.5-10.1); CREATININE 1.2 mg/dL (0.6-1.3); POTASSIUM 4.4 mmol/L (3.5-5.1)
[2020-06-26 15:30] LABS: ALBUMIN 3.3 g/dL (3.4-5.0); TOTAL BILIRUBIN 0.3 mg/dL (<0.1-1.0); TOTAL PROTEIN 6.4 g/dL (6.4-8.2)
[2020-06-26 20:26] VITALS: BP 136/59
[2020-06-26 20:41] VITALS: BP 157/70
[2020-06-26 23:10] VITALS: BP 148/65
[2020-06-27] VITALS (13 sets, daily range): BP systolic 109–153; BP diastolic 43–70
--- NOTE | 2020-06-27 09:35 | EKG ---
[place] [address] ELECTROCARDIOGRAM REPORT Name: BRYCE PRIEST Room: [address]#: [id number] Admission: 06/26/20 Attend Phys: Gi Mathews Discharge: Date of : 52 Date of Service: 06/26/20 1432 Report #: [id number] THIS REPORT FOR: //name// [facility] ED Test Date: 2020-06-26 Test Time: 14:32:24 Pat Name: BRYCE PRIEST Department: Room: [facility] Gender: M Stitcher Around: CCD : 1950 Requested By: Daiana Diaz Order Number: [id number] MD: Sascha Shepherd Measurements Intervals [place] Rate: 72 P: 44 AK: 186 QRS: -42 QRSD: 88 T: 46 QT: 372 QTc: 408 Interpretive Statements Sinus rhythm Multiple ventricular premature complexes Probable left atrial enlargement Left axis deviation Anterior infarct, old Compared to ECG 12/17/2019 20:17:42 Ventricular premature complex(es) now present Myocardial infarct finding still present Electronically Signed On 06-27-2020 9:34:50 CDT by Sascha Shepherd [email or web address] <ELECTRONICALLY SIGNED> By: Sascha Shepherd MD, FACC 06/27/20 0934 1432 1432 Sascha Shepherd MD, FAC /EPI
--- NOTE | 2020-06-27 15:06 | EKG ---
[place] [address] ELECTROCARDIOGRAM REPORT Name: BRYCE PRIEST Room: [address]#: [id number] Admission: 06/26/20 Attend Phys: Gi Mathews Discharge: Date of : 52 Date of Service: 06/27/20 1326 Report #: [id number] THIS REPORT FOR: //name// [facility] Test Date: 2020-06-27 Test Time: 13:26:32 Pat Name: BRYCE PRIEST Department: Room: [address] Gender: M Behavioral Interventionist: DUYEN : 1950 Requested By: Sascha Shepherd Order Number: [id number] Ronald MD: Sascha Shepherd Measurements Intervals [place] Rate: 68 P: 69 AR: 192 QRS: -36 QRSD: 86 T: 23 QT: 392 QTc: 417 Interpretive Statements Sinus rhythm Left axis deviation Anteroseptal infarct, old Compared to ECG 06/26/2020 14:32:24 Ventricular premature complex(es) no longer present Myocardial infarct finding still present Electronically Signed On 06-27-2020 15:06:00 CDT by Sascha Shepherd [email or web address] <ELECTRONICALLY SIGNED> By: Sascha Shepherd MD, [facility] 06/27/20 1506 1326 1326 Sascha Shepherd MD, [facility] /EPI
[2020-06-28] VITALS: BP 120/58
[2020-06-28 04:00] VITALS: BP 150/51
[2020-06-28 05:12] LABS: HEMATOCRIT 38.2 % (42.0-52.0); HEMOGLOBIN 13.1 gm/dL (14.0-18.0); MCH 30.5 pg (26.0-34.0); MCHC 34.3 g/dL (28.0-37.0); MCV 89.2 fL (80.0-100.0); MPV 10.3 fl. (7.2-11.1); RBC 4.29 mil/uL (4.50-6.00); RDW-CV 13.4 % (10.5-14.5); WBC 10.8 thou/uL (4.0-11.0)
[2020-06-28 05:23] LABS: CALCIUM 8.2 mg/dL (8.5-10.1); CREATININE 1.2 mg/dL (0.6-1.3); POTASSIUM 4.5 mmol/L (3.5-5.1)
[2020-06-28 05:30] LABS: CHOLESTEROL 158 mg/dL (<200); HDL CHOLESTEROL 38 mg/dL (>40); LDL CHOLESTEROL 105 mg/dL (<100); SERUM ASSESSMENT Clear; TC:HDL 4.2 Ratio (Not establshd); TRIGLYCERIDE 78 mg/dL (<150); TROPONIN-I LEVEL <0.06 ng/mL (<0.06); VLDL 16 mg/dL (<40)
[2020-06-28 07:30] VITALS: BP 163/81
--- NOTE | 2020-06-28 11:15 | CARD ---
[address] [address] CARDIAC CATH REPORT Name: BRYCE PRIEST Room: [address] [place]iceo MJuan Carlos#: [id number] Admission: 06/26/20 Attend Phys: Karla Hood Discharge: Date of : 52 Report #: [id number] THIS REPORT FOR: //name// cc: Brian Ulloa MD, Matthew D MD ~ APPROVED REPORT Study performed: 06/27/2020 10:37:31 Patient Details Patient Status: In-Patient Room #: The patient is a 69 year-old male Event Personnel Sascha Shepherd Gambreler, Lilliana Lassiter RN, Chandler Farias Scrub, Kenia Moreira RTR Monitor Procedures Performed Art Access - R femoral artery, Coronaries Angiography and Bypass Grafts CORCABG, AMANDA Place w/wo Plasty Single RCA , Hemostasis w/ Angioseal Indication Unstable angina , Chest pain Risk Factors Hypercholesterolemia, Diabetes Previous Procedures/Diagnoses Previous CABGPrevious PCI, Previous Valve Surgery Admission/Lab Medications/Medications given during procedure Heparin Unfract., Solumedrol IV 125 mg, Benadryl IV 25 mg, Heparin IV 7000 units, Heparin IV 4000 units, Heparin IV 1000 units Procedure Narrative The patient was brought electively to the Cardiac Catheterization Laboratory and was prepped and draped in a sterile manner. The right femoral was infiltrated with 2% Lidocaine subcutaneous anesthesia. A 6F [place] sheath was inserted into the right femoral artery. Coronary angiography was performed using coronary diagnostic catheters. The right coronary system was accessed and visualized with a 6F JR4 catheter. The left coronary system was accessed and visualized with a 6F JL4 catheter. Closure device was deployed with a 6 Fr Angioseal STS. The [place] [address] CARDIAC CATH REPORT Name: BRYCE PRIEST Room: [address]Jhoan#: [id number] Admission: 06/26/20 Attend Phys: Karla Hood Discharge: Date of : 52 Report #: [id number] there were no complications associated with the procedure. There was no hematoma. The saphenous vein graft was visuallized with a 6F JR4 catheter. The ADAMES graft was visualized with a 6F IM catheter. Intraoperative Conscious Sedation Sedation start time: 11:47 Case end Time: 12:50 Fentanyl 50 mcg Versed 2 mg Fluoro Time: 11.4 minutes Dose: DAP 484272 cGycm2 1854 mGy Contrast Type and Amount: Visipaque 180 ml Coronary Angiography The patient's coronary anatomy is co- dominant. [place] Artery Percent Stenosis Grafts (Complete if Previous CABG=Yes: Percent Stenosis) Patent ADAMES graft noted to the mid lad, although there was a 60% stenosis noted in the mid portion of the graft. The SVG to the circumflex artery appeared chronically occluded proximally. Diagnostic Cath Left Main 0% stenosis LAD 60% proximal and 50% mid stenosis Circumflex 0% stenosis OM3 60% proximal stenosis Right Coronary long area of stent noted that started proximally and extended distally beyond the acute margin. There was two 90% sequential stenosis noted in the mid rca prior to the acute margin of the artery. R PDA small diameter vessel noted Left Ventriculography Left Ventriculography was not performed. Hemodynamics The aortic pressure is 122/48 mmHg with a mean of 75 mmHg. PCI Technique Lesion Anticoagulation was achieved with Heparin. Patient was preloaded with Plavix. Percutaneous coronary intervention was performed on the mid right coronary artery. The lesion stenosis prior to intervention was 85% with CHARITY 3 flow. A 6FR JCR 4 100CM [place] [address] CARDIAC CATH REPORT Name: BRYCE PRIEST Room: [address] [place] Castro#: [id number] Admission: 06/26/20 Attend Phys: Karla Hood Discharge: Date of : 52 Report #: [id number] engage the right ostium. A BMW 190cm Interventional Guidewire was used to cross the lesion. BALLOON DILATION A Balloon catheter Trek RX 2.5 X 12 was inserted and inflated up to 16.00atm for 24seconds. Repeat angiography revealed the following post-dilatation results: 50% stenosis. Additional Inflation: 16.00atm for 10seconds. Additional Inflation: 16.00atm for 14seconds. STENT DEPLOYMENT A drug-eluting stent [place] RX Stent 3.0X38mm was inserted and inflated up to 16.00atm for 21seconds. Repeat angiography revealed the following post-stent deployment results: 0% stenosis. Additional Inflation: 18.00atm for 14seconds. Additional Inflation: 20.00atm for 8seconds. Final angiography reveals 0 % stenosis with CHARITY 3 flow. Conclusion 1. Patent ADAMES graft to the lad 2. SVG to the circumflex appeared chronically occluded. 3. long area of multiple stents in the mid rca appeared to have two sequential 90% stenosis in the mid rca 4. successful placement of a new drug eluting stent in the mid rca Recommendations Cardiac Rehabilitation Referral Aggressive Medical Therapy <ELECTRONICALLY SIGNED> By: Sascha Shepherd MD, [facility] 06/28/20 1115 1115 1115Darichard Shepherd MD, [facility] /INF
[2020-06-28 11:49] VITALS: BP 149/71
--- NOTE | 2020-06-28 14:01 | EKG ---
[place] [address] ELECTROCARDIOGRAM REPORT Name: BRYCE PRIEST Room: [address]#: [id number] Admission: 06/26/20 Attend Phys: Gi Mathews Discharge: Date of : 52 Date of Service: 06/28/20 1000 Report #: [id number] THIS REPORT FOR: //name// [facility] Test Date: 2020-06-28 Test Time: 10:00:07 Pat Name: BRYCE PRIEST Department: Room: [address] Gender: M Family Life Educator: ZEUS : 1950 Requested By: Sascha Shepherd Order Number: [id number] Ronald MD: Jaciel Leger Measurements Intervals [place] Rate: 70 P: 45 CT: 198 QRS: -21 QRSD: 93 T: -7 QT: 395 QTc: 427 Interpretive Statements Sinus rhythm Inferior infarct, age indeterminate Anteroseptal infarct, old Lateral leads are also involved Baseline wander in lead(s) V1,V2 Compared to ECG 06/27/2020 13:26:32 Left-axis deviation no longer present Myocardial infarct finding still present Electronically Signed On 06-28-2020 14:01:32 CDT by Jaciel Leger [email or web address] <ELECTRONICALLY SIGNED> By: Jaciel Leger MD, FACC 06/28/20 1401 1000 1000 aJciel Leger MD, [facility] /EPI
[2020-06-28 16:37] VITALS: BP 157/59
[2020-06-28 20:00] VITALS: BP 136/75
[2020-06-29] VITALS: BP 134/44
[2020-06-29 04:00] VITALS: BP 138/75
[2020-06-29 07:30] VITALS: BP 116/33
[2020-06-29 11:17] VITALS: BP 118/64
[2020-06-29] MEDS ORDERED: RANEXA500 MG PO (11:47)
[2020-06-29] MEDS ORDERED: PLAVIX 75 MG TA75 M1 PO (11:47)
[2020-06-29 13:33] VITALS: BP 118/64
--- NOTE | 2020-06-30 15:15 | EKG ---
[place] [address] ELECTROCARDIOGRAM REPORT Name: BRYCE PRIEST Room: [address] DIS IN M.R.#: [id number] Admission: 06/28/20 Attend Phys: Gi Mathews Discharge: 06/29/20 Date of : 52 Date of Service: 06/28/2020 Report #: [id number] THIS REPORT FOR: //name// [facility] Test Date: 2020-06-28 Test Time: 06:20:04 Pat Name: BRYCE PRIEST Department: Room: [address] Gender: M Shoeblack: THOWARD3 : 1950 Requested By: Gi Mathews Order Number: [id number] Ronald MD: Sascha Shepherd Measurements Intervals [place] Rate: 70 P: 45 MA: 192 QRS: -34 QRSD: 89 T: -11 QT: 396 QTc: 428 Interpretive Statements Sinus rhythm Inferior infarct, age indeterminate Anteroseptal infarct, old Baseline wander in lead(s) V2 Compared to ECG 06/27/2020 13:26:32 Myocardial infarct finding still present Electronically Signed On 06-30-2020 15:15:16 CDT by Sascha Shepherd [email or web address] <ELECTRONICALLY SIGNED> By: Sascha Shepherd MD, FAC 06/30/20 1515 9 9 Sascha Shepherd MD, [facility] /EPI
--- NOTE | 2020-06-30 16:37 | CON ---
[address] [address] CONSULTATION Name: BRYCE PRIEST Room: [address] IN .R.#: [id number] Admission: 06/28/20 Attend Phys: Karla Hood Discharge: 06/29/20 Date of : 52 Report #: [id number] THIS REPORT FOR: //name// cc: Brian Ulloa MD, Matthew D MD ~ THIS REPORT FOR: //name// CC: Brian Mathews DATE OF SERVICE: 06/27/2020 CARDIOLOGY CONSULTATION HISTORY OF PRESENT ILLNESS: The patient is a 69-year-old single white male who came into the Emergency Room last night complaining of chest pain. The patient has an extensive and complicated past medical history. He apparently has had more than 20 stents placed in the past. He states his first stent was placed in [place] back in 2003. After several stents, he eventually underwent single vessel bypass surgery and aortic valve replacement using tissue valve at [facility] in 2013. He notes that 4 years later in 09/2018, he had 2-vessel bypass surgery at [facility]. He also has a history of PAD with previous bilateral leg bypass. He is not very active at this time. He had his last cardiac catheterization here at [facility] last June. I performed the procedure from the right femoral artery. At that time, there was a patent ADAMES graft to the LAD and patent vein graft to marginal branch of circumflex. The LAD itself had a distal 70% stenosis. The right coronary had a long stent and had a 90% stenosis. No ventriculogram was performed. I then placed 2 stents in the right coronary artery. He has been on Plavix since that time. He was doing well until yesterday. He had an episode of chest pain and became diaphoretic and nauseated. He took 2 nitroglycerin and that did not seem to help. He called EMS and brought here to [facility] and admitted. He does note exertional dyspnea, but no palpitations, syncope, recent fever or cough. PAST MEDICAL HISTORY: He has had cholecystectomy, hypertension, and diabetes. CURRENT MEDICATIONS: Consists of Ranexa, Lipitor, Protonix, carvedilol, Lasix, Plavix, and Zetia. ALLERGIES: HE HAS A PREVIOUS REACTION TO IV CONTRAST. FAMILY HISTORY: His mother had heart problem. 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 Lives in [place]. He is not . Quit smoking in 2003, [place] [address] CONSULTATION Name: BRYCE PRIEST Room: [address] IN M.R.#: [id number] Admission: 06/28/20 Attend Phys: Karla Hood Discharge: 06/29/20 Date of : 52 Report #: [id number] REVIEW OF SYSTEMS: He apparently had a subdural hematoma in the past after he fell. No history of asthma, liver disease, kidney disease, cancer, psychiatric illness, or chronic skin condition. PHYSICAL EXAMINATION: GENERAL: Revealed an elderly male, who appeared in no distress. VITAL SIGNS: He had a blood pressure of 120/70 and pulse 80. He is afebrile. HEENT: He was anicteric. Conjunctivae pink. Mucous membranes moist. NECK: Veins nondistended. Radiating systolic murmurs noted in the carotids. CHEST: Clear to auscultation. CARDIOVASCULAR: Regular rate and rhythm, grade 2 systolic ejection murmur. ABDOMEN: Soft. EXTREMITIES: Had no edema. Dorsalis pedis pulse could not be palpated. SKIN: Cool and dry. NEUROLOGIC: Nonfocal. IMAGING: His ECG showed a sinus rhythm, PVC, left axis deviation, nonspecific T-wave changes. The patient had an echocardiogram done in November of this year that showed an ejection fraction of 60%, bioprosthetic aortic valve with no regurgitation, no stenosis of the valve, mild mitral regurgitation. His x-ray in the Emergency Room last night, chronic interstitial changes, no pulmonary edema. LABORATORY DATA: Sodium 140, creatinine 1.2, and glucose 285. Troponins all 0.06. White blood cell count 5.4 and hemoglobin 13.4. IMPRESSION AND RECOMMENDATIONS: 1. Unstable angina. Recommend repeat cardiac catheterization. 2. Previous aortic valve replacement using tissue valve. 3. Hypertension. The patient is on a beta annie. 4. Diabetes. 5. Peripheral arterial disease with previous bypass surgery. 6. Hyperlipidemia. The patient is on a statin drug. 7. History of IV CONTRAST ALLERGY. Recommend pretreatment with steroids. <ELECTRONICALLY SIGNED> By: Sascha Shepherd MD, FACC 06/30/20 1637 [id number] Nely Shepherd MD, FACC /nt
== END 2020-06-29 14:15 | disposition home or self-care (01) | DRG 247 ==
LOC: M.ERS 14:30 → M.2W 16:31 → M.TBA-ER 16:31 → M.2W 20:33
PROVIDERS: Internal Medicine Cardiovascular Disease; Personal Emergency Response Attendant; ADMIT Internal Medicine; ATTEND Internal Medicine
PROC: B218YZZ Fluoroscopy of Left Internal Mammary Bypass Graft using Other Contrast (ICD-10-PCS; principal; 2020-06-27)
PROC: B212YZZ Fluoroscopy of Single Coronary Artery Bypass Graft using Other Contrast (ICD-10-PCS; principal; 2020-06-27)
PROC: 027034Z Dilation of Coronary Artery, One Artery with Drug-eluting Intraluminal Device, Percutaneous Approach (ICD-10-PCS; principal; 2020-06-27)
PROC: 4A023N7 Measurement of Cardiac Sampling and Pressure, Left Heart, Percutaneous Approach (ICD-10-PCS; principal; 2020-06-27)
PROC: B211YZZ Fluoroscopy of Multiple Coronary Arteries using Other Contrast (ICD-10-PCS; principal; 2020-06-27)
DX: T82.855A Stenosis of coronary artery stent, initial encounter (principal); I25.110 Atherosclerotic heart disease of native coronary artery with unstable angina pectoris; I69.351 Hemiplegia and hemiparesis following cerebral infarction affecting right dominant side; I31.9 Disease of pericardium, unspecified; I13.0 Hypertensive heart and chronic kidney disease with heart failure and stage 1 through stage 4 chronic kidney disease, or unspecified chronic kidney disease; T82.867A Thrombosis due to cardiac prosthetic devices, implants and grafts, initial encounter; T82.858A Stenosis of other vascular prosthetic devices, implants and grafts, initial encounter; N18.2 Chronic kidney disease, stage 2 (mild); E11.22 Type 2 diabetes mellitus with diabetic chronic kidney disease; E11.65 Type 2 diabetes mellitus with hyperglycemia; K21.9 Gastro-esophageal reflux disease without esophagitis; M94.0 Chondrocostal junction syndrome [Tietze]; I50.9 Heart failure, unspecified; E11.51 Type 2 diabetes mellitus with diabetic peripheral angiopathy without gangrene; F41.9 Anxiety disorder, unspecified; I25.82 Chronic total occlusion of coronary artery; Y84.0 Cardiac catheterization as the cause of abnormal reaction of the patient, or of later complication, without mention of misadventure at the time of the procedure; E78.5 Hyperlipidemia, unspecified; Z79.82 Long term (current) use of aspirin; Z79.899 Other long term (current) drug therapy; Z95.1 Presence of aortocoronary bypass graft; Z95.5 Presence of coronary angioplasty implant and graft; Z88.8 Allergy status to other drugs, medicaments and biological substances; Z87.891 Personal history of nicotine dependence; Y92.89 Other specified places as the place of occurrence of the external cause; Z91.041 Radiographic dye allergy status; Z79.4 Long term (current) use of insulin; Z95.2 Presence of prosthetic heart valve

== ENCOUNTER 2021-01-21 17:06 | Inpatient (IN) | payer OTHER ==
[~2021-01-21] VITALS: Ht 170.2 cm; Wt 79.4 kg
[2021-01-21 17:14] VITALS: BP 167/82
[2021-01-21] MEDS ORDERED: IMDUR 30 MG TAB30 M1 PO (17:27)
[2021-01-21 17:32] LABS: ABSOLUTE BASOPHILS 0.1 thou/uL (0.0-0.2); ABSOLUTE EOSINOPHILS 0.2 thou/uL (0.0-0.7); ABSOLUTE LYMPHOCYTES 1.3 thou/uL (0.8-5.3); ABSOLUTE MONOCYTES 0.4 thou/uL (0.0-1.2); ABSOLUTE NEUTROPHILS 4.5 thou/uL (1.6-8.1); BASOPHILS 0.9 %; EOSINOPHILS 3.6 %; HEMATOCRIT 46.4 % (42.0-52.0); HEMOGLOBIN 15.6 gm/dL (14.0-18.0); LYMPHOCYTES 20.1 %; MCH 29.8 pg (26.0-34.0); MCHC 33.5 g/dL (28.0-37.0); MCV 88.9 fL (80.0-100.0); MONOCYTES 6.6 %; MPV 10.3 fl. (7.2-11.1); NUCLEATED RBCS 0 /100WBC; PLATELET COUNT* 134 thou/uL (150-400); POLYS 68.8 %; RBC 5.22 mil/uL (4.50-6.00); RDW-CV 13.1 % (10.5-14.5); WBC 6.6 thou/uL (4.0-11.0)
[2021-01-21 17:45] LABS: CALCIUM 9.9 mg/dL (8.5-10.1); CREATININE 1.1 mg/dL (0.6-1.3); POTASSIUM 4.4 mmol/L (3.5-5.1)
[2021-01-21 17:46] LABS: APTT 25.8 Seconds (25.0-31.3); INR 0.9; PROTIME 9.8 Seconds (9.20-11.50)
[2021-01-21 17:58] LABS: ALBUMIN 3.7 g/dL (3.4-5.0); MAGNESIUM 2.1 mg/dL (1.8-2.4); TOTAL BILIRUBIN 0.4 mg/dL (<0.1-1.0); TOTAL PROTEIN 7.5 g/dL (6.4-8.2)
[2021-01-21 21:47] VITALS: BP 165/78
[2021-01-21 21:55] VITALS: BP 184/80
[2021-01-21] MEDS ORDERED: COZAAR 25 MG TA25 M1 PO (22:19)
[2021-01-22] VITALS (12 sets, daily range): BP systolic 109–157; BP diastolic 54–86
--- NOTE | 2021-01-22 04:56 | NUR ---
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 HE IS ABLE TO COMMUNICATE HIS NEEDS TO STAFF EFFECTIVELY. CURRENT PAIN MEDICATION REGIMEN HAS BEEN ADEQUATE FOR CONTROLLING HIS PAIN UP TO THIS TIME. HE HAS BEEN NPO SINCE MIDNIGHT FOR CARDIOLOGY CONSULT LATER TODAY. HEPARIN GTT INFUSING PER CARDIOLOGY MD ORDER AND PROTOCOL.
[2021-01-22 05:56] LABS: ABSOLUTE BASOPHILS 0.1 thou/uL (0.0-0.2); ABSOLUTE EOSINOPHILS 0.3 thou/uL (0.0-0.7); ABSOLUTE MONOCYTES 0.5 thou/uL (0.0-1.2); ABSOLUTE NEUTROPHILS 3.6 thou/uL (1.6-8.1); BASOPHILS 0.8 %; HEMATOCRIT 42.6 % (42.0-52.0); LYMPHOCYTES 30.7 %; MCH 29.2 pg (26.0-34.0); MCHC 32.9 g/dL (28.0-37.0); MCV 88.7 fL (80.0-100.0); MONOCYTES 7.6 %; MPV 10.2 fl. (7.2-11.1); NUCLEATED RBCS 0 /100WBC; PLATELET COUNT* 135 thou/uL (150-400); POLYS 55.9 %; RBC 4.81 mil/uL (4.50-6.00); WBC 6.4 thou/uL (4.0-11.0)
[2021-01-22 06:01] LABS: CALCIUM 8.9 mg/dL (8.5-10.1); POTASSIUM 3.5 mmol/L (3.5-5.1)
--- NOTE | 2021-01-22 07:15 | NUR ---
CHANGE OF SHIFT REPORT GIVEN PATIENT SEEN IN BED ASLEEP ASSUMED PATIENT CARE
--- NOTE | 2021-01-22 09:43 | EKG ---
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 /EPI
--- NOTE | 2021-01-22 09:45 | EKG ---
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 : 1950 Requested By: Jaciel Leger Order Number: [id number] Reading MD: Jaciel Leger Measurements Intervals [place] Rate: 57 P: 35 [place]: 183 QRS: -30 QRSD: 93 T: 4 QT: 415 QTc: 404 Interpretive Statements Sinus rhythm Left ventricular hypertrophy Anterior infarct, old Minimal ST elevation, lateral leads Compared to ECG 06/28/2020 10:00:07 Left ventricular hypertrophy now present ST (T wave) deviation now present Myocardial infarct finding still present Electronically Signed On 01-22-2021 9:44:45 CAR WIPER by Jaciel Leger [email or web address] <ELECTRONICALLY SIGNED> By: Jaciel Leger MD, FACC 01/22/21 0944 3 3 Jaciel Leger MD, FAC /EPI
--- NOTE | 2021-01-22 09:46 | EKG ---
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 : 1950 Requested By: Rebeca Vizcarra Order Number: [id number] Reading MD: Jaciel Leger Measurements Intervals [place] Rate: 59 P: 31 MA: 180 QRS: -32 QRSD: 94 T: 25 QT: 412 QTc: 409 Interpretive Statements Sinus rhythm Inferior infarct, old Anteroseptal infarct, old Compared to ECG 01/22/2021 01:44:48 Left ventricular hypertrophy no longer present ST (T wave) deviation no longer present Myocardial infarct finding still present Electronically Signed On 01-22-2021 9:46:38 COAL HAULER OPERATOR by Jaciel Leger [email or web address] <ELECTRONICALLY SIGNED> By: Jaciel Leger MD, FACC 01/22/21945 3 3 Jaciel Leger MD, [facility] /EPI
--- NOTE | 2021-01-22 14:24 | NUR ---
Pt is A&O. Resides at home with his son, SONI and grandkids. Independent. Pt states that he has DME but does not currently use any. Hx of [facility]. No hx of SNF. Hx of ARU at [facility] and [facility]. Goal is home at dc, no needs anticipated. Cards following, if Pt does not need a cath, could possibly dc later today, otherwise, plan dc tomorrow.
--- NOTE | 2021-01-22 14:56 | 2DMMODE ---
[place] [address] 2 D/M-MODE ECHOCARDIOGRAM Name: BRYCE PRIEST Room: [address] IN [facility]#: [id number] Admission: 01/21/21 Attend Phys: Brando Vazquez, Discharge: Date of : 52 Date of Service: 01/22/21 1455 Report #: [id number] THIS REPORT FOR: cc: Brian Ulloa MD, Matthew D MD [place], Michael J. MD [facility] ~ APPROVED REPORT Study performed: 01/22/2021 14:06:41 EXAM: Comprehensive 2D, Doppler, and color-flow Echocardiogram Patient Location: In-Patient Room #: 209 Status: routine BSA: 1.91 HR: 60 bpm BP: 140/66 mmHg Rhythm: NSR Other Information Study Quality: Good Indications Chest Pain 2D Dimensions IVSd: 11.41 (7-11mm) LVOT Diam: 18.93 (18-24mm) LVDd: 34.88 mm PWd: 11.13 (7-11mm) Ascending Ao: 21.47 (22-36mm) LVDs: 23.90 (25-40mm) Aortic Root: 30.18 mm Volumes Left Atrial Volume (Systole) LA ESV Index: 36.00 mL/m2 Aortic Valve AoV Peak Caleb.: 1.93 m/s AO Peak Gr.: 14.92 mmHg LVOT Max P.10 mmHg AO Mean Gr.: 7.02 mmHg LVOT Mean P.89 mmHg LVOT Max V: 1.59 m/s AO V2 VTI: 35.29 cm LVOT Mean V: 1.01 m/s VELASQUEZ (VTI): 2.79 cm2 LVOT V1 VTI: 34.95 [place] [address] 2 D/M-MODE ECHOCARDIOGRAM Name: BRYCE PRIEST Room: [address] IN [facility].#: [id number] Admission: 01/21/21 Attend Phys: Brando Vazquez, Discharge: Date of : 52 Date of Service: 01/22/21 1455 Report #: [id number] Mitral Valve MV Mean Gr.: 3.10 mmHg E/A Ratio: 1.04 MV Decel. Time: 362.30 ms MV E Max Caleb.: 1.47 m/s MV PHT: 105.07 ms MVA (PHT): 2.09 cm2 TDI E/Lateral E': 16.33 E/Medial E': 24.50 Medial E' Caleb.: 0.06 m/s Lateral E' Caleb.: 0.09 m/s Pulmonary Valve PV Peak Caleb.: 1.10 m/s PV Peak Gr.: 4.88 mmHg Left Ventricle The left ventricle is normal size. There is normal LV segmental wall motion. There is normal left ventricular wall thickness. Left ventricular systolic function is normal. LVEF is 65-70%. Grade II - pseudonormal filling dynamics. Right Ventricle The right ventricle is normal size. The right ventricular systolic function is normal. Atria Left atrium is mildly dilated. The right atrium size is normal. Aortic Valve Bioprosthetic aortic valve is present. No aortic regurgitation is present. There is no aortic valvular stenosis. Mitral Valve Moderate mitral annular calcification. Mild mitral regurgitation. Mild to moderate mitral stenosis. Tricuspid Valve The tricuspid valve is normal in structure. Unable to assess PA pressure. Trace tricuspid regurgitation. Pulmonic Valve The pulmonary valve is normal in structure. There is no pulmonic valvular regurgitation[place] [address] 2 D/M-MODE ECHOCARDIOGRAM Name: BRYCE PRIEST Room: [address]#: [id number] Admission: 01/21/21 Attend Phys: Brando Vazquez, Discharge: Date of : 52 Date of Service: 01/22/21 1455 Report #: [id number] The aortic root is normal in size. IVC is normal in size and collapses >50% with inspiration. Pericardium There is no pericardial effusion. <Conclusion> The left ventricle is normal size. There is normal left ventricular wall thickness. Left ventricular systolic function is normal. LVEF is 65-70%. Grade II - pseudonormal filling dynamics. Bioprosthetic aortic valve is present. No aortic regurgitation is present. There is no aortic valvular stenosis. Moderate mitral annular calcification. Mild mitral regurgitation. Trace tricuspid regurgitation. IVC is normal in size and collapses >50% with inspiration. <ELECTRONICALLY SIGNED> By: Jaciel Leger MD, FACC 01/22/21 1455 1455 1455 Jaciel Leger MD, FACC /INF
[2021-01-23 04:46] VITALS: BP 127/64
[2021-01-23 07:30] VITALS: BP 174/79
[2021-01-23] MEDS ORDERED: NORCO5 PO (09:23)
[2021-01-23 09:35] LABS: CALCIUM 9.1 mg/dL (8.5-10.1); CREATININE 1.1 mg/dL (0.6-1.3); POTASSIUM 4.9 mmol/L (3.5-5.1)
[2021-01-23 12:00] VITALS: BP 129/57
[2021-01-23 14:24] VITALS: BP 129/57
[2021-01-24 02:06] LABS: GLYCOHEMOGLOBIN (HGB A1C) 13.7 % (4.8-5.6)
== END 2021-01-23 16:15 | disposition home or self-care (01) | DRG 303 ==
LOC: M.ERS 17:06 → M.2W 18:08 → M.TBA-ER 18:08 → M.2W 21:54
PROVIDERS: Emergency Medicine Emergency Medical Services; ADMIT Internal Medicine; ATTEND Internal Medicine
DX: I25.110 Atherosclerotic heart disease of native coronary artery with unstable angina pectoris (principal); I50.32 Chronic diastolic (congestive) heart failure; I13.0 Hypertensive heart and chronic kidney disease with heart failure and stage 1 through stage 4 chronic kidney disease, or unspecified chronic kidney disease; N18.2 Chronic kidney disease, stage 2 (mild); E11.65 Type 2 diabetes mellitus with hyperglycemia; Z20.822 Contact with and (suspected) exposure to COVID-19; E11.22 Type 2 diabetes mellitus with diabetic chronic kidney disease; Z95.1 Presence of aortocoronary bypass graft; Z95.5 Presence of coronary angioplasty implant and graft; Z88.8 Allergy status to other drugs, medicaments and biological substances; Z91.041 Radiographic dye allergy status; Z87.891 Personal history of nicotine dependence; Z86.73 Personal history of transient ischemic attack (TIA), and cerebral infarction without residual deficits; Z79.4 Long term (current) use of insulin

== ENCOUNTER 2021-02-05 10:53 | Observation (INO) | payer OTHER ==
[~2021-02-05] VITALS: Ht 170.2 cm; Wt 87.1 kg
--- NOTE | ~2021-02-05 | CON ---
[address] [address] CONSULTATION Name: BRYCE PRIEST Room: [address] Eliceo Castro#: [id number] Admission: 02/05/21 Attend Phys: Russ Muniz Discharge: Date of : 52 Report #: [id number] THIS REPORT FOR: cc: Brian Ulloa MD, Matthew D MD ~ Jaciel Leger MD [facility] DATE OF SERVICE: 02/05/2021 CARDIOLOGY CONSULTATION. INDICATION: Chest pain. HISTORY OF PRESENT ILLNESS: The patient is a 70-year-old gentleman who is well known to our service. He has a history of coronary artery disease with previous 2-vessel coronary artery bypass grafting and multiple interventions in the past. The patient presents with complaints of recurrent chest pain. In 2013, he had 2-vessel coronary artery bypass grafting with bioprosthetic aortic valve replacement. More recently in 05/2020, he had angiography that showed in-stent restenosis in the mid portion of the right coronary artery for which the patient had additional stenting. He has had multiple stents placed to the right coronary artery. The left anterior descending, diagonal and circumflex obtuse marginal systems appeared free of significant disease. He presents with chest pain beginning at approximately 7:00 to 7:30 this morning. The patient took sublingual nitroglycerin and aspirin at home without relief. He states the pain radiates to the left shoulder, chest and neck area. He has some associated shortness of breath and diaphoresis. He is without other cardiac complaint at this time. ALLERGIES: COMPAZINE, CONTRAST, AND KETOROLAC. REPORTED HOME MEDICATIONS: Aspirin 81 mg daily, carvedilol 6.25 mg b.i.d., Zetia 10 mg daily, furosemide 40 mg daily, isosorbide mononitrate 30 mg q.a.m., losartan 25 mg daily, insulin 30 units subQ b.i.d. PAST MEDICAL HISTORY: 1. Coronary artery disease. 2. Hypertension. 3. Insulin requiring type 2 diabetes mellitus. 4. Chronic renal insufficiency. 5. Hypertension. 6. Chronic diastolic heart failure. PAST SURGICAL HISTORY: Coronary artery bypass [place] [address] CONSULTATION Name: BRYCE PRIEST Room: [address]#: [id number] Admission: 02/05/21 Attend Phys: Russ Muniz Discharge: Date of : 52 Report #: [id number]. FAMILY HISTORY: Noncontributory. SOCIAL HISTORY: The patient quit smoking over a year ago. REVIEW OF SYSTEMS: As per HPI, otherwise unremarkable. PHYSICAL EXAMINATION: VITAL SIGNS: Stable. Blood pressure is 164/80, pulse 67 and regular. GENERAL: This is a pleasant gentleman who appears to be in mild distress with chest discomfort. HEENT: Extraocular muscles intact. Mucous membranes are moist. Head is normocephalic, atraumatic. Extraocular muscles intact. Mucous membranes are moist. NECK: Shows no jugular venous distention. CHEST: Clear. CARDIAC: Regular rhythm without gallop or murmur. EXTREMITIES: Show no edema. SKIN: Warm and dry. LABORATORY DATA: Reviewed. Electrolytes are within normal limits. BUN 22, creatinine 1.4, serum glucose 485. Troponin is less than 0.06 on 2 separate occasions. NT-proBNP 858. Chest x-ray clear. IMPRESSION AND RECOMMENDATIONS: 1. Chest discomfort. Etiology not entirely clear. The patient does have underlying coronary artery disease. We will start heparin drip per Cardiology protocol and continue rule out with serial enzymes. EKG unremarkable. Plan noninvasive stress testing tomorrow to evaluate for extent of ischemic coronary artery disease. 2. Hypertension. Blood pressure moderately elevated. Resume home medications and adjust as needed. 3. Hyperlipidemia. Repeat fasting lipid profile. Adjust medications as needed. 4. Status post bioprosthetic aortic valve replacement. Recent echocardiogram shows normal functioning of the bioprosthetic aortic [place] [address] CONSULTATION Name: BRYCE PRIEST Room: [address]#: [id number] Admission: 02/05/21 Attend Phys: Russ Muniz Discharge: Date of : 52 Report #: [id number] systolic function. 5. Chronic diastolic heart failure, presently appears compensated. By: 1718 0008[facility] Leger MD, [place] /nt
--- NOTE | ~2021-02-05 | EMS ---
[address] [address] EMS Patient Care Report Name: BRYCE PRIEST Room: [address] IN [facility]#: [id number] Admission: 02/05/21 Attend Phys: Russ Muniz Discharge: Date of : 52 Report #: [id number] THIS REPORT FOR: //name// Report Transmitted: 02/05/2021 11:12 EMS Care Summary [facility] Incident [id number] @ 02/05/2021 09:54 Incident Location [id number] [place] [address] Patient BRYCE PRIEST Male, 70 Years 1950 Patient Address [id number] [place] [address] Patient History Hypertension (HTN),Type 2 Diabetes,Myocardial Infarction ([place]), Patient Allergies Toradol, Patient Medications Lasix, Insulin, Nitroglycerin, Chief Complaint Chest pain Disposition Transported No Lights/[place] Dispatch Reason Chest Pain (Non-Traumatic) Transported To [facility] Narrative Dispatch: [facility] was dispatched for a male patient experiencing chest pain. Med 1 copied tones and went en route emergent. Chief Complaint: Med 1 arrived on scene to find the patient sitting upright in [address] [address] EMS Patient Care Report Name: BRYCE PRIEST Room: [address] IN [facility]#: [id number] Admission: 02/05/21 Attend Phys: Russ Muniz Discharge: Date of : 52 Report #: [id number] his chair. Patient is alert and does not appear to be in any distress or discomfort. Patient states he has chest pain and it has been ongoing "all morning." Patient states he rates his pain an 8/10. A 12 lead EKG is performed showing normal sinus rhythm. History of present illness/AMANUEL: Patient states he has had an [place] previously. Patient states he has multiple stents placed and has had multiple cardiac workups at [facility]. Patient states he has taken 3 nitro prior to EMS arrival with brief relief. Assessment: Airway: Clear, patent, and self maintained. Breathing: Clear, and equal bilaterally. Non labored. Circulation: Skin is pink, warm, and dry. Strong radial pulses. Disability: A&OX4, GCS 15. Exposures: No life threats were found. See "assessments" tab for further. Reason for ambulance: Patient is experiencing chest pain. Requesting EMS treatment and transport to [facility]. Treatments: ALS assessment. 12 lead EKG showing normal sinus rhythm. 20G IV left hand. 2 nitro spray sublingually. VItals monitored throughout transport. Summary: With the assistance of EMS, the patient was placed onto the cot, secured in place, and placed into the ambulance for transport. An IV was established and 1 spray of nitro was given sublingually. Med 1 went en route non emergent to [facility]. Radio report was given and no further questions or orders were received. An additional spray of nitro was given with relief. The patient's overall condition remained the same throughout transport. Med 1 arrived at destination and the patient was taken to room 15 in the ED where he was sheet transferred onto the bed. Report was given and signatures and paperwork were received. Med 1 returned back in service. Initial Vitals @10:12MI Suspected: false @10:25P: 80,BP: 142/85,SpO2: 100, @10:37P: 78,BP: 137/82,SpO2: 99, @10:20P: 79,BP: 145/85,SpO2: 100, @10:40P: 76,SpO2: 99,[place] Suspected: false @10:32P: 82,SpO2: 99, @10:15P: 82,R: 18,BP: 176/90,GCS: 15,Glucose: 391,SpO2: 100,Revised Trauma: 12, @10:49P: 80,R: 18,[place] Suspected: false @10:45P: 75,BP: 133/82,SpO2: 99, [place] [address] EMS Patient Care Report Name: BRYCE PRIEST Room: [place] [address] ADM [place] .R.#: [id number] Admission: 02/05/21 Attend Phys: Russ Muniz Discharge: Date of : 52 Report #: [id number] @10:12MENTAL:Time Oriented,Person Oriented,Place Oriented,Event Oriented,SKIN:HEENT:LUNG SOUNDS:ABDOMEN:PELVIS//GI:EXTREMITIES:Capillary Refill: Right Upper: < 2 Sec,PULSE:Radial: 2+ Normal,NEURO:@10:28MENTAL:Person Oriented,Place Oriented,Event Oriented,Time Oriented,SKIN:HEENT:LUNG SOUNDS:ABDOMEN:PELVIS//GI:EXTREMITIES:Capillary Refill: Right Upper: < 2 Sec,PULSE:Radial: 2+ Normal,NEURO: Impression Chest Pain / Discomfort Procedures @10:12ALS AssessmentResponse: UnchangedSucceeded@10:23Saline Lock 0cc (20 ga) Site: Hand-LeftResponse: UnchangedSucceeded@10:24Nitro [place] - 0.4 Milligrams (mg) - SublingualResponse: Improved@10:45Nitro [place] - 0.4 Milligrams (mg) - SublingualResponse: Improved@10:4912-Lead ECGResponse: UnchangedSucceeded@10:4012-Lead ECGResponse: UnchangedSucceeded@10:1212-Lead ECGResponse: UnchangedSucceeded Timeline 09:54,Call Received 09:54,Dispatched 09:58,En Route 10:06,On Scene 10:07,At Patient 10:12,ALS Assessment,Response: UnchangedSucceeded, 10:12,12-Lead ECG,Response: UnchangedSucceeded, 10:12,BP: / M,PULSE: ,RR: R,SPO2: Ox,ETCO2: ,BG: ,PAIN: ,GCS: , 10:15,BP: 176/90 M,PULSE: 82,RR: 18 R,SPO2: 100 Ox,ETCO2: ,B,PAIN: ,GCS: 15, 10:20,BP: 145/85 M,PULSE: 79,RR: R,SPO2: 100 Ox,ETCO2: ,BG: ,PAIN: ,GCS: , 10:22,Depart Scene 10:23,Saline Lock 0cc 20 ga Site: Hand-Left,Response: UnchangedSucceeded, 10:24,Nitro [place] - 0.4 Milligrams (mg) - Sublingual,Response: Improved 10:25,BP: 142/85 M,PULSE: 80,RR: R,SPO2: 100 Ox,ETCO2: ,BG: ,PAIN: ,GCS: , 10:32,BP: / M,PULSE: 82,RR: R,SPO2: 99 Ox,ETCO2: ,BG: ,PAIN: ,GCS: , 10:37,BP: 137/82 M,PULSE: 78,RR: R,SPO2: 99 Ox,ETCO2: ,BG: ,PAIN: ,GCS: , 10:40,12-Lead ECG,Response: UnchangedSucceeded, 10:40,BP: / M,PULSE: 76,RR: R,SPO2: 99 Ox,ETCO2: ,BG: ,PAIN: ,GCS: , 10:45,Nitro Mountain - 0.4 Milligrams (mg) - Sublingual,Response: Improved 10:45,BP: 133/82 M,PULSE: 75,RR: R,SPO2: 99 Ox,ETCO2: ,BG: ,PAIN: ,GCS: , 10:49,12-Lead ECG,Response: UnchangedSucceeded, 10:49,BP: / M,PULSE: 80,RR: 18 R,SPO2: Ox,ETCO2: ,BG: ,PAIN: ,GCS: , 10:50,At Destination 11:45,[place] [address] EMS Patient Care Report Name: BRYCE PRIEST Karla Room: [place] [address] ADM [place] .R.#: [id number] Admission: 02/05/21 Attend Phys: Russ Muniz Discharge: Date of : 52 Report #: [id number] v1.1 Copyright 2020 [employer] This EMS Care Summary contains data elements from the applicable legal record (which may be displayed differently). It is designed to provide pertinent information for the following purposes: continuity of care, clinical quality, and state data reporting. The complete legal record is available to ED staff and administrators of the receiving hospital in [employer]'s Patient Tracker. All data is provided "as is."
[~2021-02-05 10:53] MED LIST changes: +COZAAR 25 MG TA25 M1 PO; +NORCO5 PO
[2021-02-05 10:56] VITALS: BP 98/62
[2021-02-05 11:12] LABS: ABSOLUTE EOSINOPHILS 0.2 thou/uL (0.0-0.7); ABSOLUTE MONOCYTES 0.3 thou/uL (0.0-1.2); ABSOLUTE NEUTROPHILS 5.2 thou/uL (1.6-8.1); BASOPHILS 0.6 %; EOSINOPHILS 3.5 %; HEMATOCRIT 39.4 % (42.0-52.0); HEMOGLOBIN 13.2 gm/dL (14.0-18.0); LYMPHOCYTES 15.1 %; MCH 29.8 pg (26.0-34.0); MCHC 33.4 g/dL (28.0-37.0); MCV 89.2 fL (80.0-100.0); MONOCYTES 4.5 %; MPV 10.6 fl. (7.2-11.1); NUCLEATED RBCS 0 /100WBC; PLATELET COUNT* 118 thou/uL (150-400); POLYS 76.3 %; RBC 4.41 mil/uL (4.50-6.00); RDW-CV 13.1 % (10.5-14.5); WBC 6.8 thou/uL (4.0-11.0)
[2021-02-05 11:23] LABS: CALCIUM 9.1 mg/dL (8.5-10.1); CREATININE 1.4 mg/dL (0.6-1.3); POTASSIUM 4.3 mmol/L (3.5-5.1)
--- NOTE | 2021-02-05 11:28 | NUR ---
PT STATING HE HAD 1 BABY ASA AT HOME AND 3 SL NITRO PRIOR TO EMS ARRIVAL. DR. APONTE NOTIFIED.
[2021-02-05 11:33] LABS: ALBUMIN 3.1 g/dL (3.4-5.0); MAGNESIUM 1.9 mg/dL (1.8-2.4); TOTAL BILIRUBIN 0.2 mg/dL (<0.1-1.0); TOTAL PROTEIN 6.1 g/dL (6.4-8.2)
[2021-02-05 15:23] VITALS: BP 146/53
[2021-02-05 16:00] VITALS: BP 164/80
--- NOTE | 2021-02-05 16:57 | EKG ---
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
[2021-02-05 17:17] LABS: HEMATOCRIT 40.4 % (42.0-52.0); HEMOGLOBIN 13.5 gm/dL (14.0-18.0); MCH 29.9 pg (26.0-34.0); MCHC 33.5 g/dL (28.0-37.0); MCV 89.1 fL (80.0-100.0); RBC 4.53 mil/uL (4.50-6.00); RDW-CV 13.1 % (10.5-14.5); WBC 6.1 thou/uL (4.0-11.0)
[2021-02-05 17:29] LABS: APTT 25.2 Seconds (25.0-31.3); INR 0.9; PROTIME 9.9 Seconds (9.20-11.50)
--- NOTE | 2021-02-05 19:34 | NUR ---
Patient arrived to unit at 1530, place on monitor. Assessment as charted. NSR or the monitor. C/o pain in chest. PO pain med given. Order given to start Hep drip.Paged Cardiology to clarify order. Confirmed he wanted to start Hep drip, and ok to give Plavix and ASA in the AM. Stress test ordered for tomorrow. Patient will be npo at midnight.
[2021-02-05 20:00] VITALS: BP 136/64
--- NOTE | 2021-02-05 20:00 | NUR ---
RECEIVED REPORT AND ASSUMED CARE OF PT, ASSESSMENT COMPLETED. HEPARIN GTT INFUSING. PT CONT TO C/O CHEST PAIN STATING IT IS MID STERNUM AND SOMETHING HEAVY SITTING ON IT. REASSURANCE GIVEN. TELEMETRY ON SHOWING SR. WILL CONT TO MONITOR AND ASSIST NEEDED.
[2021-02-06] VITALS: BP 126/50
[2021-02-06 04:00] VITALS: BP 121/57
--- NOTE | 2021-02-06 05:28 | NUR ---
PT STATES CONSTANT HEAVINESS IN CHEST 8/10 ON PAIN SCALE BUT ABLE TO SLEEP. STATES PO MEDS NOT EFFECTIVE AND REQUESTING IV MORPHINE. HEPARIN CONT TO INFUSE. NPO SINCE MN FOR STRESS TEST THIS AM. TELEMETRY CONT TO SHOW SR. ASSISTED TO BR AND BACK. HS GOALS OF REST AND SAFETY ACHIEVED. HOURLY ROUNDING OBSERVED.
[2021-02-06 08:15] VITALS: BP 116/61
[2021-02-06 12:14] VITALS: BP 124/56
--- NOTE | 2021-02-06 12:48 | NUR ---
Pt is A&O. Resides at home with family. Independent. Hx of [facility] HH. No hx of SNF. Hx of ARU. Pt has a walker and cane at home that he can use. Pt discharging home today, no needs.
[2021-02-06 16:15] VITALS: BP 101/49
--- NOTE | 2021-02-06 16:59 | CARDNUC ---
[place] [address] CARDIAC NUCLEAR IMAGING REPORT Name: BRYCE PRIEST Room: [address] M.R.#: [id number] Admission: 02/05/21 Attend Phys: Roberto Urbina Discharge: Date of : 52 Date of Service: 02/06/21 1659 Report #: [id number] THIS REPORT FOR: cc: Brian Ulloa MD, Matthew D MD Liston, Michael J. MD [facility] ~ APPROVED REPORT Imaging Protocol: Stress Tc-99m/Rest Tc-99m 1 day Study performed: 02/05/2021 16:24:00 Indication: Chest pain Patient Location: In-Patient Room #: 202 Stress Tech: Jessica Vazquez Stress Nurse: Daya Adamson RN Ht: 5 ft 7 in Wt: 170 lbs BSA: 1.89 m2 BMI: 26.62 Medical History Medical History: CAD s/p CABG, CAD s/p stent, Diabetes, Former Smoker, HTN, Stroke/TIA, Valvular heart disease Medications: carvedilol, asa-81, clopidogrel, furisemide, isosorbide, losartan, ranolazine Allergies: iodine, compazine, toradol Cardiac Risk Factors: Age, DM, HTN, Tobacco History (Former) Previous Cardiac Procedures: PCI, CABG Exercise History: Sedentary Meds Held (24 hrs): carvedilol, isosorbide Resting Data Rest SPECT myocardial perfusion imaging was performed in supine position 30 minutes following the intravenous injection of 10.1 mCi of Tc-99m Sestamibi. Time of rest injection: 0820 The images were gated to evaluate regional wall motion and calculate left ventricular ejection fraction. Administration Route: IV Administration Site: Right Arm Pharmacologic Stress Pharmacologic stress test was performed by injecting Regadenoson 0.4 mg IV push over 10-15 seconds immediately followed [place] [address] CARDIAC NUCLEAR IMAGING REPORT Name: BRYCE PRIEST Room: [address] Darleen.#: [id number] Admission: 02/05/21 Attend Phys: Roberto Urbina Discharge: Date of : 52 Date of Service: 02/06/21 1659 Report #: [id number] injection of 29.8 mCi of Tc-99m Sestamibi. Time of stress injection: 1055 Administration Route: IV Administration Site: Left Arm Heart Rate at time of stress injection: 76 bpm. Gated Stress SPECT was performed 45 minutes after stress injection. The images were gated to evaluate regional wall motion and calculate left ventricular ejection fraction. Stress Test Details Stress Test: Pharmacologic stress testing performed using 0.4 mg of regadenoson per 5 mL given IV over 10 seconds. Reason for pharmacologic stress test: physical limitation. 60 mg caffeine given for nausea. HR Max Heart Rate (APMHR): 151 bpm Resting HR: 70 bpm Target HR (85% APMHR): 128 bpm BP Resting BP: 128/66 mmHg ECG Resting ECG: Sinus Rhythm Stress ECG: Sinus Rhythm ST Change: None Arrhythmia: None Recovery ECG: Sinus Rhythm Recovery ST Change: None Recovery Arrhythmia: None Clinical Reason for Termination: Completed protocol The patient tolerated Lexiscan infusion without significant cardiac symptoms. Nurse Comments ppt had chest pain prior to test and no change in condition during or after test. unable to walk on treadmill due to weakness on right side Stress ECG Conclusion The baseline twelve-lead EKG shows a sinus rhythm with no significant ST segment abnormality. There were occasional premature atrial contractions. EKGs obtained during and post Lexiscan infusion show sinus rhythm with no significant ST segment changes when compared to baseline. There were no stress-[place] [address] CARDIAC NUCLEAR IMAGING REPORT Name: BRYCE PRIEST Room: [address]#: [id number] Admission: 02/05/21 Attend Phys: Roberto Urbina Discharge: Date of : 52 Date of Service: 02/06/21 1659 Report #: [id number] Study Quality Study: Good Artifact: Mild Diaphragmatic artifact Study Data At rest, the left ventricular ejection fraction was 71%.. Post stress, the left ventricular ejection was 67%.. Perfusion Perfusion images obtained in the supine position at rest and post Lexiscan stress show mild photopenia of the inferior wall that resolves with post-rest prone imaging suggesting diaphragmatic attenuation artifact. No other significant fixed or reversible defects are identified. Wall Motion Global LV systolic function is normal. There is a septal wall motion abnormality noted consistent with prior bypass procedure. Nuclear Conclusion ECG Findings: negative for ischemia Clinical Findings: negative for ischemia Nuclear Findings: negative for ischemia Exercise Capacity: not assessed Left Ventricular Function: Preserved Risk Study: low Perfusion images show no evidence of stress-induced ischemia or infarct. Left ventricular systolic function appears preserved on gated studies. This is a low risk study. <Conclusion> The baseline twelve-lead EKG shows a sinus rhythm with no significant ST segment abnormality. There were occasional premature atrial contractions. EKGs obtained during and post Lexiscan infusion show sinus rhythm with no significant ST segment changes when compared to baseline. There were no stress-induced arrhythmias. <ELECTRONICALLY SIGNED> By: Jaciel Leger MD, FACC 02/06/211658 58 58 Jaciel Leger MD, FACC /INF
--- NOTE | 2021-02-06 17:16 | NUR ---
STRESS TEST RESULTS BACK. NO NEW CHANGES. IV'S INTACT. HEPARIN DRIP GOING. MEDS GIVEN PER JAN. HOURLY ROUNDING PERFORMED. PT LYING IN BED. PAIN REPORTED THROUGHOUT SHIFT. VS AND ASSESSMENT CHARTED. HEART MONITOR ATTACHED AT . DR PAOLO DAHL WITH DISCHARGE. CALLL LIGHT WITH IN REACH. WILL CONTINUE TO MONITOR.
[2021-02-06 17:22] VITALS: BP 101/49
== END 2021-02-06 18:15 | disposition home or self-care (01) ==
LOC: M.ERS 10:53 → M.TBA-ER 12:04 → M.2W 15:30
PROVIDERS: Emergency Medicine Emergency Medical Services; Internal Medicine Cardiovascular Disease; ADMIT Internal Medicine; ATTEND Internal Medicine
DX: I25.119 Atherosclerotic heart disease of native coronary artery with unspecified angina pectoris (principal); Z20.822 Contact with and (suspected) exposure to COVID-19; E11.22 Type 2 diabetes mellitus with diabetic chronic kidney disease; I13.0 Hypertensive heart and chronic kidney disease with heart failure and stage 1 through stage 4 chronic kidney disease, or unspecified chronic kidney disease; N18.2 Chronic kidney disease, stage 2 (mild); I50.30 Unspecified diastolic (congestive) heart failure; Z88.6 Allergy status to analgesic agent; Z88.8 Allergy status to other drugs, medicaments and biological substances; Z79.82 Long term (current) use of aspirin; Z79.899 Other long term (current) drug therapy; Z79.02 Long term (current) use of antithrombotics/antiplatelets; Z95.5 Presence of coronary angioplasty implant and graft; Z87.891 Personal history of nicotine dependence